=== PATIENT | male | born 1970 | race Caucasian/White ===

== ENCOUNTER 2020-04-02 11:54 | Outpatient (REF) | payer OTHER, SELFPAY ==
[2020-04-02 12:37] LABS: COVID-19 Test Negative (Negative)
== END 2020-04-02 11:55 | disposition home or self-care (01) ==
LOC: HO.LAB 11:54
PROVIDERS: Visit Provider Internal Medicine
DX: Z20.828 Contact with and (suspected) exposure to other viral communicable diseases (principal)
CPT/HCPCS: 87635; C9803

== ENCOUNTER 2020-04-10 12:01 | Outpatient (REF) | payer OTHER, SELFPAY ==
[2020-04-10 12:55] LABS: COVID-19 Test Negative (Negative)
== END 2020-04-10 12:02 | disposition home or self-care (01) ==
LOC: HO.EMPCOV 12:01
PROVIDERS: Visit Provider Internal Medicine
DX: Z20.828 Contact with and (suspected) exposure to other viral communicable diseases (principal)
CPT/HCPCS: 87635; C9803

== ENCOUNTER 2020-04-22 11:52 | Outpatient (REF) | payer OTHER, SELFPAY ==
[2020-04-22 12:41] LABS: COVID-19 Test Negative (Negative)
== END 2020-04-22 11:53 | disposition home or self-care (01) ==
LOC: HO.EMPCOV 11:52
PROVIDERS: Visit Provider Internal Medicine
DX: Z20.828 Contact with and (suspected) exposure to other viral communicable diseases (principal)
CPT/HCPCS: 87635; C9803

== ENCOUNTER 2020-04-29 11:42 | Outpatient (REF) | payer OTHER, SELFPAY ==
[2020-04-29 12:35] LABS: IDNOW Serial# 55D5AD1C
[2020-04-29 12:36] LABS: COVID-19 Test Negative (Negative)
== END 2020-04-29 11:43 | disposition home or self-care (01) ==
LOC: HO.EMPCOV 11:42
PROVIDERS: Visit Provider Internal Medicine
DX: Z20.828 Contact with and (suspected) exposure to other viral communicable diseases (principal)
CPT/HCPCS: 87635; C9803

== ENCOUNTER 2020-05-11 11:53 | Outpatient (REF) | payer OTHER, SELFPAY ==
[2020-05-11 12:19] LABS: COVID-19 Test Negative (Negative)
== END 2020-05-11 11:54 | disposition home or self-care (01) ==
LOC: HO.EMPCOV 11:53
PROVIDERS: Visit Provider Internal Medicine
DX: Z20.828 Contact with and (suspected) exposure to other viral communicable diseases (principal)
CPT/HCPCS: 87635; C9803

== ENCOUNTER 2020-05-19 11:27 | Outpatient (REF) | payer OTHER, SELFPAY ==
[2020-05-19 13:07] LABS: COVID-19 Test Negative (Negative)
== END 2020-05-19 11:28 | disposition home or self-care (01) ==
LOC: HO.EMPCOV 11:27
PROVIDERS: Visit Provider Internal Medicine
DX: Z20.828 Contact with and (suspected) exposure to other viral communicable diseases (principal)
CPT/HCPCS: 87635; C9803

== ENCOUNTER 2020-07-03 12:14 | Outpatient (REF) | payer OTHER, SELFPAY ==
[2020-07-05 10:13] LABS: SARS-COV-2 PCR UMBRL NEGATIVE
== END 2020-07-03 12:15 | disposition home or self-care (01) ==
LOC: HO.EMPCOV 12:14
PROVIDERS: Visit Provider Internal Medicine
DX: Z20.822 Contact with and (suspected) exposure to COVID-19 (principal)
CPT/HCPCS: 36415; C9803; U0003

== ENCOUNTER 2020-07-13 10:11 | Outpatient (REF) | payer OTHER, SELFPAY ==
[2020-07-13 10:28] LABS: MANUAL DIFF FLAG NO
[2020-07-13 10:36] LABS: Basophils Percent Auto 0.5 % (0-2); Eosinophils Absolute Auto 0.1 X10*3/uL (0.0-0.4); Eosinophils Percent Auto 2.3 % (0-4); Hematocrit 27.1 % (42-52); Hemoglobin 8.5 g/dl (14.0-18.0); Imm Gran Abs Auto 0.01 X10*3/uL (0.00-0.03); Imm Gran Pct Auto 0.2 % (0.0-0.4); Lymphocytes Absolute Auto 1.2 X10*3/uL (1.2-4.9); Lymphocytes Percent Auto 20.4 % (20-40); Mean Corpuscular HGB Conc 31.4 g/dl (31.0-36.0); Mean Corpuscular Hemoglobin 24.4 pg (27.0-33.0); Mean Corpuscular Volume 77.9 fL (80-98); Monocytes Absolute Auto 0.7 X10*3/uL (0.1-1.2); Monocytes Percent Auto 11.3 % (2-11); Neutrophils Absolute Auto 3.9 X10*3/uL (2.0-8.3); Neutrophils Percent Auto 65.3 % (45-73); Platelet Count 211 X10*3/uL (160-400); Red Blood Count 3.48 X10*6/uL (4.60-5.80)
[2020-07-13 11:12] LABS: Alanine Aminotransferase 20 U/L (0-40); Alkaline Phosphatase 102 U/L (39-117); Anion Gap 11 (12-20); Aspartate Amino Transferase 82 U/L (5-37); Bilirubin Direct 0.5 mg/dL (0.0-0.5); Bilirubin Total 0.9 mg/dL (0.0-1.0); Blood Urea Nitrogen 4 mg/dL (9-16); Carbon Dioxide 25 mmol/L (22-29); Chloride 101 mmol/L (96-108); Cholesterol 112 mg/dL; Estimated Glomerular Filt Rate > 60; Glucose Random 121 mg/dL (60-115); HDL Cholesterol 32 mg/dL; LDL Cholesterol Calculated 63 mg/dl; Magnesium 1.8 mg/dL (1.6-2.6); Potassium 4.1 mmol/L (3.3-5.1); Sodium 133 mmol/L (135-145); Total Protein 6.1 g/dL (6.5-8.0); Triglycerides 85 mg/dL
[2020-07-13 11:25] LABS: Thyroid Stimulating Hormone 1.47 uIU/mL (0.32-4.0)
[2020-07-17 05:42] LABS: Vitamin B12 > 2000 pg/mL (200-900)
== END 2020-07-13 10:12 | disposition home or self-care (01) ==
LOC: HO.LDS 10:11
PROVIDERS: Visit Provider Internal Medicine
DX: E53.8 Deficiency of other specified B group vitamins (principal); L73.2 Hidradenitis suppurativa
CPT/HCPCS: 36415; 80053; 80061; 80076; 82248; 82607; 82746; 83735; 84443; 85025

== ENCOUNTER 2020-07-18 15:26 | Emergency (ER) | payer OTHER, SELFPAY ==
--- NOTE | ~2020-07-18 | CT_ITS ---
EXAMINATION: CT ABDOMEN AND PELVIS WITH CONTRAST CLINICAL INFORMATION: 50-year-old male with diffuse abdominal pain, worse in the epigastric region. COMPARISON: Abdominal ultrasound 07/23/[address] a lower extremity runoff 02/05/2019 TECHNIQUE: Multidetector volumetric images were obtained from the superior aspect of the liver through the pubic symphysis following administration 85 mL of Omnipaque 350 intravenous contrast. Sagittal and coronal reformatted images were obtained on the technologist's workstation. This CT examination was performed using dose optimization techniques as appropriate, variously including the following: *Automated exposure control *Adjustment of mA and/or kV according to patient size (this includes techniques or standardized protocols for targeted exams where dose is matched to indication/reason for exam; i.e. extremities or head) *Use of iterative reconstruction technique DLP: 850 mGy-cm FINDINGS: Visualized lung bases are well aerated. There is mild suspected dependent atelectasis of the posterior left lung base. The liver is normal in size but demonstrates mildly decreased attenuation and a mildly nodular contour. The gallbladder is physiologically distended without definitive gallstones. The pancreas, spleen and adrenal glands are unremarkable. Symmetrically enhancing kidneys without hydronephrosis. Surgical changes of the GE junction and stomach consistent with gastric bypass. Normal caliber loops of small and large bowel. There is mucosal fatty infiltration involving the ascending colon and rectum, nonspecific. Small to moderate amount of abdominal and pelvic ascites. Nonaneurysmal abdominal aorta. Recannulized umbilical vein. The bladder is normal in appearance. The prostate gland is not enlarged. No gross inguinal lymphadenopathy. Mild degenerative changes of the spine. CT/CT abdomen pelvis w con IMPRESSION: Cirrhotic appearance of the liver with mild to moderate ascites and a recanalized umbilical vein.
[2020-07-18 15:37] VITALS: BP 110/71; PULSE 96; RESP 18; TEMP 36.9; O2SAT 100; BMI 29.9
--- NOTE | 2020-07-18 16:57 | ECG_ITS ---
Test Reason : WEAKNESS Blood Pressure : / mmHG Vent. Rate : 079 BPM Atrial Rate : 079 BPM P-R Int : 126 ms QRS Dur : 090 ms QT Int : 416 ms P-R-T Axes : 054 069 083 degrees QTc Int : 477 ms Normal sinus rhythm Nonspecific T wave abnormality Prolonged QT Abnormal ECG When compared with ECG of 21-SEP-2018 00:20, No significant change was found Referred By: Nuha Munoz Electronically Signed By:SANDY FARIA
--- NOTE | 2020-07-18 17:05 | ED.GENADULT ---
HPI - General Adult General Chief complaint: General Medical Stated complaint: dizziness Time Seen by Provider: 07/18/20 16:27 Source: patient Mode of arrival: ambulatory Limitations: no limitations History of Present Illness HPI narrative: Patient comes to the emergency room complaining of weakness, feeling lethargic, intermittent rectal bleeding with wiping, diffuse abdominal pain, feeling lightheaded, complaining of epigastric pain and bloating. Most of patient's symptoms started approximately 1 week ago. The patient is on Xarelto for a DVT that he had in his right leg. Patient states that he also has history of internal and external hemorrhoids. Related Data Allergies Allergy/AdvReac Type Severity Reaction Status Date / Time niacin Allergy Unknown FLUSH Verified 07/18/20 17:35 FEELING No Known Allergies Allergy Verified 07/18/20 17:35 [No Known Allergies*] Review of Systems Review of Systems: Constitutional : No Weight loss, No Fever, No Chills, No Night Sweats, complaining of worsening fatigue and generalized malaise ENT/Mouth : No Hearing loss, No Ear Pain, No Nasal Congestion, No Sinus Pain, No Hoarseness, No sore throat, No Rhinorrhea, No Swallowing Difficulty Eyes: No Eye Pain, No Swelling, No Redness, No Foreign Body, No Discharge, No Vision Changes Cardiovascular : No Chest Pain, No SOB, No Dyspnea on Exertion, no orthopnea, no lower extremity edema Respiratory : No Cough, No Sputum, No Wheezing, No Smoke Exposure, No Dyspnea Gastrointestinal : No Nausea, No Vomiting, No Diarrhea, complaining of epigastric pain, abdominal bloating, diffuse abdominal discomfort, complaining of external and internal hemorrhoids Genitourinary : no irregular bleeding, No Dysuria, No Urinary Frequency, No Hematuria, No Urinary Incontinence, No Urgency, No Flank Pain, No Urinary Flow Changes, No Hesitancy Musculoskeletal : No joint pain, complaining of bilateral his bilateral lower extremities aching, No Joint Swelling Skin : No Skin Lesions, No rash Neuro : No Weakness, No Numbness, No Paresthesias, No Loss of Consciousness, complaining of dizziness when standing Psych : No Anxiety/Panic, No Depression, No SI/HI/AH/VH, No Social Issues, Heme/Lymph: Complaining of Easy Bruising, No Bleeding,No Lymphadenopathy Endocrine : No Polyuria, No Polydipsia, No Temperature Intolerance [facility] Past Medical History Medical History (Updated 07/18/20 @ 19:58 by Nuha Munoz MD) DVT (deep venous thrombosis) Surgical History (Updated 07/18/20 @ 17:34 by Nuha Munoz MD) Hx of laparoscopic adjustable gastric banding Social History Social History Alcohol intake: current Alcohol intake frequency: 3 or more drinks per day Alcohol type: beer Smoking Status: Current every day smoker Smoked in Last 30 Days: Yes Use of substances other than those prescribed or required for medical reasons: No Advance Directives: No Advance Directives Information Provided: Yes Physical Exam Vital Signs: Vital Signs: Last Vital Signs Temp 98.4 F 07/18/20 15:37 Pulse 104 H 07/18/20 19:34 Resp 16 07/18/20 19:34 BP 116/77 07/18/20 19:34 Pulse Ox 97 07/18/20 19:34 Body Mass Index 29.9 Appearance: Alert. Oriented X3. No acute distress. Eyes: Pupils equal, round and reactive to light. ENT: Pharynx normal. Neck: Normal inspection. Neck supple. No lymph nodes noted. No crepitus CVS: Normal heart rate and rhythm. Pulses normal. Normal S1 and S2 Respiratory: No respiratory distress. Breath sounds normal. No Wheezing. No rales Abdomen: Soft , tenderness to palpation diffusely, worse over the epigastric area No rigidity. No distention. Three small external hemorrhoids, questionable internal hemorrhoids, no bleeding on YOGESH. Bedside ultrasound shows [id number] ascites, fluid around the liver, minimal in the left and right lower quadrants, no significant fluid pockets Skin: Skin warm and dry. Normal skin color. Normal skin turgor. Extremities: No lower extremity edema. No lower extremity edema. No Lacerations. No Rash Neuro: Oriented X 3. No motor deficit. No sensory deficit. Moving all extermities. No slurred speech. Course Course Course Narrative: I discussed the labs and imaging with the patient, patient is developing cirrhosis. Patient states that since he was for load, he started drinking a lot of alcohol. I discussed with the patient if he wants to talk to the financial wellness coach, states that he has gone through AA before, does not want to talk to the financial wellness coach. Patient states he still feels very weak, requesting couple of days off from work I discussed with the patient that the rest of the symptoms may be attributed to a viral syndrome. Patient states that he has been tested multiple times for COVID-19, declined the test today Bedside ultrasound did not show enough fluid to obtain fluid sample, spontaneous bacterial peritonitis is not suspected at this time Medical Decision Making Lab Data Result diagrams: 07/18/20 17:19 07/18/20 17:18 Labs: Lab Results 07/18/20 07/18/20 07/18/20 Range/Units 17:18 17:18 17:18 WBC (4.8-10.8) X10*3/uL RBC (4.60-5.80) X10*6/uL Hgb (14.0-18.0) g/dl Hct (42-52) % MCV (80-98) fL MCH (27.0-33.0) pg MCHC (31.0-36.0) g/dl RDW (11.0-16.0) % Plt Count (160-400) X10*3/uL MPV (9.4-12.4) fL Immature Gran % (Auto) (0.0-0.4) % Neut % (Auto) (45-73) % Lymph % (Auto) (20-40) % [place] % (Auto) (2-11) % Eos % (Auto) (0-4) % Baso % (Auto) (0-2) % Lymph # (Auto) (1.2-4.9) X10*3/uL [place] # (Auto) (0.1-1.2) X10*3/uL Eos # (Auto) (0.0-0.4) X10*3/uL Baso # (Auto) (0.0-0.2) X10*3/uL Abs Immat Gran (auto) (0.00-0.03) X10*3/uL Absolute Neuts (auto) (2.0-8.3) X10*3/uL Absolute Nucleated RBC (0.0-0.012) X10*3/uL Nucleated RBC % (auto) (0.0-0.2) /100WBC PT 22.5 H (10.8-13.0) SEC INR 1.9 H (0.9-1.1) Sodium 137 (135-145) mmol/L Potassium 4.2 (3.3-5.1) mmol/L Chloride 106 (96-108) mmol/L Carbon Dioxide 18 L (22-29) mmol/L Anion Gap 17 (12-20) BUN 3 L (9-16) mg/dL Creatinine 0.62 (0.5-1.4) mg/dL Estim Creat Clear Calc 173.5 Estimated GFR > 60 Random Glucose 80 (60-115) mg/dL Calcium 7.5 L D (8.4-10.2) mg/dL Total Bilirubin 0.8 (0.0-1.0) mg/dL Direct Bilirubin 0.3 (0.0-0.5) mg/dL AST 70 H (5-37) U/L ALT 16 (0-40) U/L Alkaline Phosphatase 101 (39-117) U/L Total Protein 6.0 L (6.5-8.0) g/dL Albumin 2.8 L (3.5-5.0) g/dL Lipase 151 H (8-78) U/L Stool Occult Blood (NEG) 07/18/20 07/18/20 Range/Units 17:18 17:19 WBC 5.7 (4.8-10.8) X10*3/uL RBC 3.82 L (4.60-5.80) X10*6/uL Hgb 9.4 L (14.0-18.0) g/dl Hct 29.8 L (42-52) % MCV 78.0 L (80-98) fL MCH 24.6 L (27.0-33.0) pg MCHC 31.5 (31.0-36.0) g/dl RDW 18.9 H (11.0-16.0) % Plt Count 240 (160-400) X10*3/uL MPV 9.1 L (9.4-12.4) fL Immature Gran % (Auto) 0.2 (0.0-0.4) % Neut % (Auto) 57.6 (45-73) % Lymph % (Auto) 29.2 (20-40) % [place] % (Auto) 8.8 (2-11) % Eos % (Auto) 3.7 (0-4) % Baso % (Auto) 0.5 (0-2) % Lymph # (Auto) 1.7 (1.2-4.9) X10*3/uL [place] # (Auto) 0.5 (0.1-1.2) X10*3/uL Eos # (Auto) 0.2 (0.0-0.4) X10*3/uL Baso # (Auto) 0.0 (0.0-0.2) X10*3/uL Abs Immat Gran (auto) 0.01 (0.00-0.03) X10*3/uL Absolute Neuts (auto) 3.3 (2.0-8.3) X10*3/uL Absolute Nucleated RBC 0.000 (0.0-0.012) X10*3/uL Nucleated RBC % (auto) 0.0 (0.0-0.2) /100WBC PT (10.8-13.0) SEC INR (0.9-1.1) Sodium (135-145) mmol/L Potassium (3.3-5.1) mmol/L Chloride (96-108) mmol/L Carbon Dioxide (22-29) mmol/L Anion Gap (12-20) BUN (9-16) mg/dL Creatinine (0.5-1.4) mg/dL Estim Creat Clear Calc Estimated GFR Random Glucose (60-115) mg/dL Calcium (8.4-10.2) mg/dL Total Bilirubin (0.0-1.0) mg/dL Direct Bilirubin (0.0-0.5) mg/dL AST (5-37) U/L ALT (0-40) U/L Alkaline Phosphatase (39-117) U/L Total Protein (6.5-8.0) g/dL Albumin (3.5-5.0) g/dL Lipase (8-78) U/L Stool Occult Blood NEG (NEG) ECG Data Attestation: I personally reviewed and interpreted this ECG as follows: (Sinus rhythm, heart rate 79, slightly prolonged QTC 477, no specific T-wave abnormalities in V3 through V6) Discharge Plan Discharge Clinical Impression: Acute viral syndrome Cirrhosis Qualifiers: Hepatic cirrhosis type: alcoholic cirrhosis Ascites presence: with ascites Qualified Code(s): K70.31 - Alcoholic cirrhosis of liver with ascites Patient Disposition: Home, Self-Care Instructions: Cirrhosis (ED), Viral Syndrome (ED), Ascites (ED) Stand Alone Forms: Work/School Release
[2020-07-18 17:23] VITALS: BP 109/73; PULSE 80; RESP 18; O2SAT 98
[2020-07-18 17:30] VITALS: BP 121/70; PULSE 75
[2020-07-18 17:31] VITALS: BP 125/64; PULSE 97
[2020-07-18 17:33] VITALS: BP 108/62; PULSE 96
[2020-07-18] MEDS: 0.9 % Sodium Chloride 1,000 ML 999 ML IVCONT (17:35)
[2020-07-18 17:52] LABS: MANUAL DIFF FLAG NO
[2020-07-18 17:57] LABS: Basophils Percent Auto 0.5 % (0-2); Eosinophils Absolute Auto 0.2 X10*3/uL (0.0-0.4); Eosinophils Percent Auto 3.7 % (0-4); Hematocrit 29.8 % (42-52); Hemoglobin 9.4 g/dl (14.0-18.0); Imm Gran Abs Auto 0.01 X10*3/uL (0.00-0.03); Imm Gran Pct Auto 0.2 % (0.0-0.4); Lymphocytes Absolute Auto 1.7 X10*3/uL (1.2-4.9); Lymphocytes Percent Auto 29.2 % (20-40); Mean Corpuscular HGB Conc 31.5 g/dl (31.0-36.0); Mean Corpuscular Hemoglobin 24.6 pg (27.0-33.0); Mean Platelet Volume 9.1 fL (9.4-12.4); Monocytes Absolute Auto 0.5 X10*3/uL (0.1-1.2); Monocytes Percent Auto 8.8 % (2-11); Neutrophils Absolute Auto 3.3 X10*3/uL (2.0-8.3); Neutrophils Percent Auto 57.6 % (45-73); Platelet Count 240 X10*3/uL (160-400); Red Blood Count 3.82 X10*6/uL (4.60-5.80); Red Cell Distribution Width 18.9 % (11.0-16.0); White Blood Count 5.7 X10*3/uL (4.8-10.8)
[2020-07-18 17:58] LABS: OBS Int Ctl Valid YES; OBS1 NEG (NEG)
[2020-07-18 18:06] LABS: INTERNATIONAL NORM RATIO 1.9 (0.9-1.1); Prothrombin Time 22.5 SEC (10.8-13.0)
[2020-07-18 18:26] LABS: Alanine Aminotransferase 16 U/L (0-40); Albumin Level 2.8 g/dL (3.5-5.0); Alkaline Phosphatase 101 U/L (39-117); Anion Gap 17 (12-20); Aspartate Amino Transferase 70 U/L (5-37); Bilirubin Direct 0.3 mg/dL (0.0-0.5); Bilirubin Total 0.8 mg/dL (0.0-1.0); Blood Urea Nitrogen 3 mg/dL (9-16); Calcium 7.5 mg/dL (8.4-10.2); Carbon Dioxide 18 mmol/L (22-29); Chloride 106 mmol/L (96-108); Creatinine Clr Calc Pharmacy 173.5; Estimated Glomerular Filt Rate > 60; Glucose Random 80 mg/dL (60-115); Potassium 4.2 mmol/L (3.3-5.1); Sodium 137 mmol/L (135-145)
[2020-07-18 18:37] LABS: Lipase 151 U/L (8-78)
[2020-07-18] MEDS: iohexoL 350 MG/ML 100 ML INFUS..BTL IV (18:54)
[2020-07-18 19:34] VITALS: BP 116/77; PULSE 104; RESP 16; O2SAT 97
== END 2020-07-18 20:38 | disposition home or self-care (01) ==
PROVIDERS: Emergency Provider Emergency Medicine; PCP Internal Medicine
DX: B34.9 Viral infection, unspecified (principal); K70.31 Alcoholic cirrhosis of liver with ascites; F17.200 Nicotine dependence, unspecified, uncomplicated; Z86.718 Personal history of other venous thrombosis and embolism; Z79.01 Long term (current) use of anticoagulants
CPT/HCPCS: 36415; 74177; 80048; 80076; 82272; 83690; 85025; 85610; 93005; 96360; 99284; Q9967

== ENCOUNTER 2020-07-22 10:00 | Outpatient (REF) | payer OTHER, SELFPAY ==
[2020-07-22 11:04] LABS: MANUAL DIFF FLAG NO
[2020-07-22 11:25] LABS: Basophils Percent Auto 0.4 % (0-2); Eosinophils Absolute Auto 0.1 X10*3/uL (0.0-0.4); Eosinophils Percent Auto 1.4 % (0-4); Hemoglobin 8.8 g/dl (14.0-18.0); Imm Gran Abs Auto 0.01 X10*3/uL (0.00-0.03); Imm Gran Pct Auto 0.2 % (0.0-0.4); Lymphocytes Absolute Auto 0.9 X10*3/uL (1.2-4.9); Mean Corpuscular HGB Conc 30.3 g/dl (31.0-36.0); Mean Corpuscular Hemoglobin 23.9 pg (27.0-33.0); Mean Corpuscular Volume 78.8 fL (80-98); Mean Platelet Volume 9.2 fL (9.4-12.4); Monocytes Absolute Auto 0.6 X10*3/uL (0.1-1.2); Neutrophils Absolute Auto 3.4 X10*3/uL (2.0-8.3); Platelet Count 207 X10*3/uL (160-400); Red Blood Count 3.68 X10*6/uL (4.60-5.80); Red Cell Distribution Width 19.1 % (11.0-16.0)
[2020-07-22 12:03] LABS: Iron 17 mcg/dL (45-160); Percent Iron Saturation 6 % (15-50); Total Iron Binding Capacity 289 mcg/dL (228-428); Unsaturated Iron Binding 272 ug/dL
[2020-07-22 12:26] LABS: Ferritin 14 ng/mL (20-250)
== END 2020-07-22 10:01 | disposition home or self-care (01) ==
LOC: HO.HMGCLDS 10:00
PROVIDERS: PCP Internal Medicine; Visit Provider Internal Medicine
DX: K74.60 Unspecified cirrhosis of liver (principal); R18.8 Other ascites; D64.9 Anemia, unspecified
CPT/HCPCS: 36415; 82728; 83540; 85025

== ENCOUNTER 2020-07-30 14:24 | Outpatient (REF) | payer OTHER, SELFPAY ==
--- NOTE | ~2020-07-30 | US_ITS ---
EXAMINATION: US VENOUS ULTRASOUND WITH DOPPLER LOWER EXTREMITY, BILATERAL CLINICAL INFORMATION: History of thrombolysis of aortoiliac arterial thrombus. COMPARISON: None TECHNIQUE: Ultrasound of the deep veins is performed from the hip to the calf with compression sonography and color and pulse Doppler assessment. Spectral analysis with color-flow imaging is performed. FINDINGS: RIGHT: There is normal venous compression and respiratory variation and augmented flow. The visualized common femoral vein, superficial femoral vein, profunda femoral vein, popliteal vein, and the trifurcation region shows no evidence of deep venous thrombosis. There is no significant popliteal fossa cyst. LEFT: There is normal venous compression and respiratory variation and augmented flow. The visualized common femoral vein, superficial femoral vein, profunda femoral vein, popliteal vein, and the trifurcation region shows no evidence of deep venous thrombosis. There is no significant popliteal fossa cyst. No fluid collections or masses are seen in the area of numbness/pain or tingling If the patient's symptoms persist, followup ultrasound in 5 days 7 days might be of value to exclude proximal propagation from a non-visualized calf vein. US/US venous duplex LE IMPRESSION: No DVT demonstrated either lower extremity.
== END 2020-07-30 14:25 | disposition home or self-care (01) ==
LOC: HO.US 14:24
PROVIDERS: PCP Internal Medicine; Visit Provider Surgery Vascular Surgery
DX: I74.01 Saddle embolus of abdominal aorta (principal)
CPT/HCPCS: 93970

== ENCOUNTER 2020-08-06 10:01 | Outpatient (REF) | payer OTHER, SELFPAY | END 2020-08-06 10:02 | disposition home or self-care (01) | LOC: HO.LAB 10:01 | PROVIDERS: PCP Internal Medicine; Visit Provider Internal Medicine Gastroenterology | DX: Z13.89 Encounter for screening for other disorder (principal) ==

== ENCOUNTER 2020-08-06 11:14 | Emergency (ER) | payer OTHER, SELFPAY ==
--- NOTE | ~2020-08-06 | XR_ITS ---
EXAMINATION: XR CHEST CLINICAL INFORMATION: SOB. COMPARISON: There is 09/14/2019 TECHNIQUE: Frontal view of the chest was obtained. FINDINGS: The lungs as somewhat expanded without acute pneumonic consolidation. Minimal prominent interstitial markings seen but no edema or pneumonitis suspected. There is no pleural effusion. The heart size and pulmonary vascularity is normal. No gross bony abnormality. XR/XR chest 1V IMPRESSION: Unremarkable chest exam.
--- NOTE | ~2020-08-06 | CT_ITS ---
EXAMINATION: CT ABDOMEN AND PELVIS WITH CONTRAST CLINICAL INFORMATION: Upper abdominal pain COMPARISON: 07/18/2020 TECHNIQUE: Multidetector volumetric images were obtained from the superior aspect of the liver through the pubic symphysis following administration 100 mL of Omnipaque 350 intravenous contrast. Sagittal and coronal reformatted images were obtained on the technologist's workstation. Oral contrast: No This CT examination was performed using dose optimization techniques as appropriate, variously including the following: *Automated exposure control *Adjustment of mA and/or kV according to patient size (this includes techniques or standardized protocols for targeted exams where dose is matched to indication/reason for exam; i.e. extremities or head) *Use of iterative reconstruction technique DLP: 886 mGy-cm FINDINGS: LUNG BASES: The visualized lung bases are unremarkable. LIVER, GALLBLADDER, AND BILIARY TREE: Morphologically cirrhotic liver. No focal liver lesions. No intra or extrahepatic biliary dilatation. Gallbladder physiologically distended but otherwise unremarkable.. PANCREAS: Unremarkable. SPLEEN: Unremarkable. ADRENAL GLANDS: Unremarkable. KIDNEYS AND URETERS: The kidneys are normal in size, shape, and attenuation. No hydronephrosis, hydroureter, or calculi seen. No perinephric stranding. BLADDER: Unremarkable. GASTROINTESTINAL TRACT: There is mild edematous wall thickening of the ascending colon, similar to prior likely related to portal colopathy. Unremarkable appearance of the Norma-en-Y gastrojejunostomy. Scattered sigmoid colonic diverticula without evidence of diverticulitis. Normal appendix. ABDOMINAL WALL: No significant hernia is appreciated. LYMPH NODES: Normal. VASCULAR: Aorta mildly atherosclerotic. Recanalized periumbilical vein. PELVIC VISCERA: Unremarkable. OSSEOUS STRUCTURES: No acute or suspicious osseous abnormalities. Degenerative changes present throughout the spine. CT/CT abdomen pelvis w con IMPRESSION: No acute findings within the abdomen or pelvis to explain the patient's symptomatology. Morphologically cirrhotic liver with small moderate ascites and recanalized paraumbilical vein.
[2020-08-06 11:32] VITALS: BP 120/64; PULSE 89; RESP 18; TEMP 37; O2SAT 100; BMI 1347.9
--- NOTE | 2020-08-06 14:41 | ECG_ITS ---
Test Reason : ABD PAIN Blood Pressure : / mmHG Vent. Rate : 094 BPM Atrial Rate : 094 BPM P-R Int : 124 ms QRS Dur : 090 ms QT Int : 364 ms P-R-T Axes : 073 074 245 degrees QTc Int : 455 ms Normal sinus rhythm ST & T wave abnormality, consider inferolateral ischemia Abnormal ECG When compared with ECG of 18-JUL-2020 17:25, T wave inversion now evident in Inferior leads T wave inversion now evident in Lateral leads Referred By: Kamryn Boyer Electronically Signed By:OWEN BLACKWELL MD
--- NOTE | 2020-08-06 15:14 | PC.NURSE ---
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
[2020-08-06 15:23] LABS: MANUAL DIFF FLAG NO
[2020-08-06 15:25] LABS: Basophils Percent Auto 0.6 % (0-2); Eosinophils Percent Auto 0.7 % (0-4); Hematocrit 24.6 % (42-52); Hemoglobin 7.7 g/dl (14.0-18.0); Imm Gran Abs Auto 0.01 X10*3/uL (0.00-0.03); Imm Gran Pct Auto 0.2 % (0.0-0.4); Lymphocytes Absolute Auto 1.2 X10*3/uL (1.2-4.9); Lymphocytes Percent Auto 22.3 % (20-40); Mean Corpuscular HGB Conc 31.3 g/dl (31.0-36.0); Mean Corpuscular Hemoglobin 24.4 pg (27.0-33.0); Mean Corpuscular Volume 77.8 fL (80-98); Mean Platelet Volume 8.7 fL (9.4-12.4); Monocytes Absolute Auto 0.7 X10*3/uL (0.1-1.2); Monocytes Percent Auto 12.2 % (2-11); Neutrophils Absolute Auto 3.5 X10*3/uL (2.0-8.3); Platelet Count 245 X10*3/uL (160-400); Red Blood Count 3.16 X10*6/uL (4.60-5.80); Red Cell Distribution Width 18.7 % (11.0-16.0); White Blood Count 5.4 X10*3/uL (4.8-10.8)
[2020-08-06 15:28] VITALS: BP 109/63; PULSE 97; RESP 20; TEMP 36.9; O2SAT 100
--- NOTE | 2020-08-06 15:29 | PC.NURSE ---
patient a&ox3, vss, pt c/o 02/28 abd pain, will notify provider as patient is requsting pain medication, will continue to monitor.
[2020-08-06 15:35] LABS: INTERNATIONAL NORM RATIO 1.6 (0.9-1.1); Prothrombin Time 18.6 SEC (10.8-13.0)
[2020-08-06 15:37] LABS: Partial Thromboplastin Time 39.8 SEC (24.1-38.0)
[2020-08-06 15:51] LABS: Ammonia 35 umol/L (13-55); Ethanol < 10 mg/dL
--- NOTE | 2020-08-06 15:51 | ED.ABDPAIN ---
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 Miller for continued abdominal pain/distension, bleeding from belly button, SOB from abdominal distention, & decreased p.o. intake. Denies chest pain, fever, chills, dysuria/hematuria, rectal bleeding, melena, hematuria, lightheadedness/dizziness, headache Obtained [place] [facility] [place] was discharged on 08/04 s/p initial presentation of worsening abdominal distension/pain, CT showing liver cirrhosis with moderate ascites, and patient was admitted to floor for concern for SBP/paracentesis during admission patient had episode of rectal bleeding which was from external hemorrhoids.. Patient also had U.S. guided paracentesis with evacuation of 3300 mL and was initiated on Spironolactone and Lasix upon discharge. Patient's discharge hemoglobin was in was 7.1 MD elicited complaint: abdominal pain Related Data Home Medications Medication Instructions Recorded Confirmed albuterol sulfate 2 puff INHALATION Q6H PRN 08/06/20 08/06/20 aspirin 81 mg tablet,delayed 81 mg PO DAILY 08/06/20 08/06/20 release cyanocobalamin (vitamin B-12) 1,000 mcg PO DAILY 08/06/20 08/06/20 ergocalciferol (vitamin D2) 1,250 1,250 mcg PO FR@1000 08/06/20 08/06/20 mcg (50,000 unit) capsule escitalopram oxalate 20 mg tablet 20 mg PO DAILY 08/06/20 08/06/20 ferrous sulfate 325 mg (65 mg 325 mg PO DAILY tab 08/06/20 08/06/20 iron) tablet folic acid 1 mg tablet 1 mg PO DAILY 08/06/20 08/06/20 furosemide 40 mg tablet 40 mg PO DAILY 08/06/20 08/06/20 loratadine 10 mg PO DAILY 08/06/20 08/06/20 minocycline 100 mg PO BID 08/06/20 08/06/20 multivitamin [Daily-Tomas] 1 tab PO DAILY 08/06/20 08/06/20 oxycodone 5 mg tablet 10 mg PO Q6H PRN tab 08/06/20 08/06/20 rivaroxaban 20 mg tablet 20 mg PO QPM 08/06/20 08/06/20 spironolactone 100 mg tablet 100 mg PO DAILY 08/06/20 08/06/20 Allergies Allergy/AdvReac Type Severity Reaction Status Date / Time No Known Allergies Allergy Verified 08/06/20 10:16 [No Known Allergies*] Review of Systems Review of Systems Constitutional: No Fever, + Chills Eyes: No Vision Changes Cardiovascular: No Chest Pain, + SOB, No Edema, No Palpitations Respiratory: No Cough Gastrointestinal: + Nausea, No Vomiting, No Diarrhea, No Constipation, + Abdominal pain, No Hematochezia, No Melena Genitourinary: No Dysuria, No Urinary Frequency, No Hematuria Musculoskeletal: No joint pain, No Myalgias, No Joint Swelling Skin: No Skin Lesions, No rash Neuro: No Weakness, No Loss of Consciousness, No Dizziness, No Headache Yes all other systems are reviewed and are negative Physical Exam Vital Signs: Vital Signs: Last Vital Signs Temp 98.4 F 08/06/20 15:28 Pulse 97 08/06/20 15:28 Resp 20 08/06/20 15:28 BP 109/63 08/06/20 15:28 Pulse Ox 100 08/06/20 15:28 Body Mass Index 1347.9 Const: General: cooperative, healthy appearing and comfortable Orientation/consciousness: patient oriented x3 Limitations: no limitations HENMT: Head: Yes normal to inspection Ears: hearing grossly normal bilaterally General nose exam: Normal external nose present Face and sinus: Yes normal facial exam Eyes: General: appearance normal, both eyes and all related structures EOM: EOMs intact bilaterally Neck: Neck: Yes normal visual inspection Resp: Effort & Inspection: normal respiratory effort Auscultation: clear to auscultation bilaterally, no rales, no rhonchi and no wheezes Cardio: Rate: regular rate Heart sounds: S1 normal heart sound present and S2 normal heart sound present GI: Other: Mild ecchymosis noted to RUQ secondary to paracentesis performed at [facility]. No appreciable bleeding from umbilicus Inspection: Yes normal to inspection and No distended Palpation (GI): Soft to palpation, Tenderness to palpation present (GI) in the epigastrum, no guarding and not rigid Skin: Rashes: no rashes Wounds: no wounds Neuro: General: patient oriented x3 Gait exam (Neuro): Normal gait present Extrem: General: Yes normal to inspection, Yes no pedal edema and Yes no calf tenderness Course Course Course Narrative: -no leukocytosis. H&H 7.1/24.6 > which is improved from discharge from [facility] on 08/04 -AST at patient's baseline, lipase is mildly elevated at 103 XR chest 1V IMPRESSION: Unremarkable chest exam --Case discussed with GI Dr. Miller, recommended CT to rule out complication of recent paracentesis. Also recommended increase in patient's diuretics, spironolactone to 150 mg and Lasix to 60 mg daily. If large volume fluid on CT will need paracentesis -1700--ED care transferred to 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 Miller for continued abdominal pain/distension, bleeding from belly button, SOB from abdominal distention, & decreased p.o. intake. On exam VSS, NAD, lungs CTA, abdomen soft with epigastric TTP, no overt appreciable distension. Low concern for SBP at this time. Concern for pancreatitis vs complication of recent paracentesis vs ?Cholecystitis. Rule out dehydration/anemia. Low concern for appendicitis/diverticulitis Plan: EKG, labs, UA, IVF, consult GI, +/- CTAP Lab Data Result diagrams: 08/06/20 15:11 08/06/20 15:11 Labs: Lab Results 08/06/20 08/06/20 08/06/20 Range/Units 15:11 15:11 15:11 WBC 5.4 (4.8-10.8) X10*3/uL RBC 3.16 L (4.60-5.80) X10*6/uL Hgb 7.7 L (14.0-18.0) g/dl Hct 24.6 L (42-52) % MCV 77.8 L (80-98) fL MCH 24.4 L (27.0-33.0) pg MCHC 31.3 (31.0-36.0) g/dl RDW 18.7 H (11.0-16.0) % Plt Count 245 (160-400) X10*3/uL MPV 8.7 L (9.4-12.4) fL Immature Gran % (Auto) 0.2 (0.0-0.4) % Neut % (Auto) 64.0 (45-73) % Lymph % (Auto) 22.3 (20-40) % [place] % (Auto) 12.2 H (2-11) % Eos % (Auto) 0.7 (0-4) % Baso % (Auto) 0.6 (0-2) % Lymph # (Auto) 1.2 (1.2-4.9) X10*3/uL [place] # (Auto) 0.7 (0.1-1.2) X10*3/uL Eos # (Auto) 0.0 (0.0-0.4) X10*3/uL Baso # (Auto) 0.0 (0.0-0.2) X10*3/uL Abs Immat Gran (auto) 0.01 (0.00-0.03) X10*3/uL Absolute Neuts (auto) 3.5 (2.0-8.3) X10*3/uL Absolute Nucleated RBC 0.000 (0.0-0.012) X10*3/uL Nucleated RBC % (auto) 0.0 (0.0-0.2) /100WBC PT 18.6 H (10.8-13.0) SEC INR 1.6 H (0.9-1.1) APTT 39.8 H (24.1-38.0) SEC Sodium 135 (135-145) mmol/L Potassium 3.8 (3.3-5.1) mmol/L Chloride 102 (96-108) mmol/L Carbon Dioxide 25 (22-29) mmol/L Anion Gap 12 (12-20) BUN 5 L D (9-16) mg/dL Creatinine 0.64 (0.5-1.4) mg/dL Estim Creat Clear Calc 8.9 Estimated GFR > 60 Random Glucose 122 H D (60-115) mg/dL Calcium 7.8 L (8.4-10.2) mg/dL Magnesium 2.0 (1.6-2.6) mg/dL Total Bilirubin 1.0 (0.0-1.0) mg/dL Direct Bilirubin 0.5 (0.0-0.5) mg/dL AST 48 H (5-37) U/L ALT 11 (0-40) U/L Alkaline Phosphatase 92 (39-117) U/L Ammonia (13-55) umol/L Troponin I High Sens (<3.5-35.0) ng/L B-Natriuretic Peptide (<100) pg/mL Total Protein 5.4 L (6.5-8.0) g/dL Albumin 2.6 L (3.5-5.0) g/dL Lipase 103 H (8-78) U/L Ethyl Alcohol mg/dL 08/06/20 08/06/20 08/06/20 Range/Units 15:11 15:11 15:15 WBC (4.8-10.8) X10*3/uL RBC (4.60-5.80) X10*6/uL Hgb (14.0-18.0) g/dl Hct (42-52) % MCV (80-98) fL MCH (27.0-33.0) pg MCHC (31.0-36.0) g/dl RDW (11.0-16.0) % Plt Count (160-400) X10*3/uL MPV (9.4-12.4) fL Immature Gran % (Auto) (0.0-0.4) % Neut % (Auto) (45-73) % Lymph % (Auto) (20-40) % [place] % (Auto) (2-11) % Eos % (Auto) (0-4) % Baso % (Auto) (0-2) % Lymph # (Auto) (1.2-4.9) X10*3/uL [place] # (Auto) (0.1-1.2) X10*3/uL Eos # (Auto) (0.0-0.4) X10*3/uL Baso # (Auto) (0.0-0.2) X10*3/uL Abs Immat Gran (auto) (0.00-0.03) X10*3/uL Absolute Neuts (auto) (2.0-8.3) X10*3/uL Absolute Nucleated RBC (0.0-0.012) X10*3/uL Nucleated RBC % (auto) (0.0-0.2) /100WBC PT (10.8-13.0) SEC INR (0.9-1.1) APTT (24.1-38.0) SEC Sodium (135-145) mmol/L Potassium (3.3-5.1) mmol/L Chloride (96-108) mmol/L Carbon Dioxide (22-29) mmol/L Anion Gap (12-20) BUN (9-16) mg/dL Creatinine (0.5-1.4) mg/dL Estim Creat Clear Calc Estimated GFR Random Glucose (60-115) mg/dL Calcium (8.4-10.2) mg/dL Magnesium (1.6-2.6) mg/dL Total Bilirubin (0.0-1.0) mg/dL Direct Bilirubin (0.0-0.5) mg/dL AST (5-37) U/L ALT (0-40) U/L Alkaline Phosphatase (39-117) U/L Ammonia 35 (13-55) umol/L Troponin I High Sens < 3.5 (<3.5-35.0) ng/L B-Natriuretic Peptide 184 H (<100) pg/mL Total Protein (6.5-8.0) g/dL Albumin (3.5-5.0) g/dL Lipase (8-78) U/L Ethyl Alcohol < 10 mg/dL Discharge Plan Discharge Prescriptions: No Action multivitamin [Daily-Tomas] Tablet 1 tab PO DAILY RF: 0 minocycline 100 mg capsule 100 mg PO BID RF: 0 cyanocobalamin (vitamin B-12) 1,000 mcg tablet 1,000 mcg PO DAILY RF: 0 loratadine 10 mg tablet 10 mg PO DAILY RF: 0 albuterol sulfate 90 mcg/actuation Hfa Aerosol Inhaler 2 puff INHALATION Q6H PRN (Reason: Respiratory Distress) RF: 0 aspirin 81 mg tablet,delayed release (/EC) 81 mg PO DAILY RF: 0 ergocalciferol (vitamin D2) 1,250 mcg (50,000 unit) capsule 1,250 mcg PO FR@1000 RF: 0 escitalopram oxalate 20 mg tablet 20 mg PO DAILY RF: 0 ferrous sulfate 325 mg (65 mg iron) tablet 325 mg PO DAILY RF: 0 folic acid 1 mg tablet 1 mg PO DAILY RF: 0 furosemide 40 mg tablet 40 mg PO DAILY RF: 0 oxycodone 5 mg tablet 10 mg PO Q6H PRN (Reason: Pain (Scale Score 4-6)) RF: 0 Xarelto 20 mg tablet 20 mg PO QPM RF: 0 spironolactone 100 mg tablet 100 mg PO DAILY RF: 0 PMFSH Past Medical History Attestation statement: The following information was validated with the patient. Medical History (Updated 08/06/20 @ 10:28 by Ladonna Miller MD) DVT (deep venous thrombosis) Seizures Surgical History (Updated 08/06/20 @ 10:17 by ISA Obando) H/O colonoscopy H/O gastric bypass H/O hernia repair Family History Family History (Updated 08/06/20 @ 10:18 by ISA Obando) Father Pancreatic cancer Paternal Grandmother Cancer Social History Social History (Updated 08/06/20 @ 10:18 by ISA Obando) Household Members: None Alcohol intake: former Smoking Status: Current every day smoker Tobacco Type: Cigarette Packs Per Day: 1 Use of substances other than those prescribed or required for medical reasons: No Advance Directives: No Advance Directives Information Provided: No
[2020-08-06 15:59] LABS: B Type Natriuretic Peptide 184 pg/mL (<100)
[2020-08-06 16:03] LABS: Alanine Aminotransferase 11 U/L (0-40); Albumin Level 2.6 g/dL (3.5-5.0); Alkaline Phosphatase 92 U/L (39-117); Anion Gap 12 (12-20); Aspartate Amino Transferase 48 U/L (5-37); Bilirubin Direct 0.5 mg/dL (0.0-0.5); Blood Urea Nitrogen 5 mg/dL (9-16); Calcium 7.8 mg/dL (8.4-10.2); Carbon Dioxide 25 mmol/L (22-29); Chloride 102 mmol/L (96-108); Creatinine Clr Calc Pharmacy 8.9; Estimated Glomerular Filt Rate > 60; Glucose Random 122 mg/dL (60-115); Potassium 3.8 mmol/L (3.3-5.1); Sodium 135 mmol/L (135-145); Total Protein 5.4 g/dL (6.5-8.0)
[2020-08-06 16:24] LABS: Lipase 103 U/L (8-78)
[2020-08-06 16:55] LABS: Troponin-I High Sensitivity < 3.5 ng/L (<3.5-35.0)
[2020-08-06] MEDS: 0.9 % Sodium Chloride 1,000 ML 999 ML IVCONT (17:40)
[2020-08-06 17:45] VITALS: RESP 18
[2020-08-06] MEDS: Morphine Sulfate 2 MG/ML CARTRIDGE IVPUSH (17:45)
[2020-08-06] MEDS: oxyCODONE HCl Immed Release 5 MG TABLET 10 MG PO (17:45)
--- NOTE | 2020-08-06 17:50 | PC.NURSE ---
Pt medicated per jul for 10/ diffuse abd pain. Pt denies n/v and other abd associated symptoms. Pt given urinal and cup- aware of need for clean catch. call schmitz within reach
[2020-08-06 18:41] LABS: Glucose Urine UA NEG (NEG); Leukocyte Esterase Urine NEG (NEG); Nitrite Urine POS (NEG); PH 6.5 (5.0-8.0); Specific Gravity - Urine >= 1.030 (1.005-1.025); UACC Culture Trigger YES; Urine Blood NEG (NEG); Urine Ketones NEG (NEG); Urine Protein TRACE MG/DL (NEG-TRACE)
[2020-08-06 19:02] VITALS: RESP 18
[2020-08-06] MEDS: Morphine Sulfate 4 MG/ML CARTRIDGE IVPUSH (19:02)
[2020-08-06 19:16] LABS: Appearance Urine CLEAR; Color Urine DARK YELLOW
[2020-08-06 19:20] LABS: COVID-19 Test Negative (Negative)
[2020-08-06 19:23] LABS: Calcium Oxalate Crystals Urine 3+ /LPF; Granular Casts Urine 0-2 /LPF; Hyaline Casts Urine 0-2 /LPF; Mucus Urine 4+ /LPF; RBC Urine 0 /HPF (0)
[2020-08-06 19:32] VITALS: BP 111/66; PULSE 98; RESP 18; TEMP 37.6; O2SAT 100
--- NOTE | 2020-08-06 19:36 | PC.NURSE ---
Pt aware of plan for discharge home with plan to follow up with PCP, as discussed with EMMY Kelly. Preparing for discharge.
== END 2020-08-06 19:44 | disposition home or self-care (01) ==
PROVIDERS: Physician Assistant; Emergency Provider Emergency Medicine Emergency Medical Services; PCP Internal Medicine
DX: R10.9 Unspecified abdominal pain (principal); R06.02 Shortness of breath; Z98.84 Bariatric surgery status; Z79.82 Long term (current) use of aspirin; Z20.822 Contact with and (suspected) exposure to COVID-19; Z79.899 Other long term (current) drug therapy; Z86.718 Personal history of other venous thrombosis and embolism; Z79.01 Long term (current) use of anticoagulants
CPT/HCPCS: 36415; 71045; 74177; 80048; 80076; 80320; 81001; 81003; 82140; 83690; 83735; 83880; 84484; 85025; 85610; 85730; 86850; 86900; 87086; 87635; 93005; 96365; 96375; 99284; J2270; Q9967

== ENCOUNTER → 2020-08-17 13:57 | Outpatient (BNVA) | payer OTHER, SELFPAY | PROVIDERS: PCP Internal Medicine; Visit Provider Internal Medicine Gastroenterology ==

== ENCOUNTER 2020-08-17 15:08 | Inpatient (IN) | payer OTHER, SELFPAY ==
--- NOTE | ~2020-08-17 | US_ITS ---
EXAMINATION: ABDOMINAL ULTRASOUND LIMITED CLINICAL INFORMATION: Abdominal distention. Cirrhosis. COMPARISON: 08/06/2020. TECHNIQUE: Real-time imaging of the right upper quadrant abdominal viscera. FINDINGS: PANCREAS: The visualized pancreatic head and body are normal in appearance. The remainder of the pancreas is obscured from visualization by the overlying bowel gas. LIVER: The liver is of normal size and diffuse increased echogenicity without focal lesions nor intrahepatic biliary ductal dilation. There is subcapsular nodularity. GALLBLADDER: Normal. The gallbladder is physiologically distended without evidence of stones, sludge, polyps, wall thickening or pericholecystic fluid. COMMON BILE DUCT: Normal in caliber measuring 0.4 cm in diameter. RIGHT KIDNEY: Normal. No hydronephrosis. No renal calculi or focal parenchymal lesions. The kidney measures 11.0 cm in maximum dimension. FREE FLUID: There is a moderate amount of free fluid within the abdomen. US/US abdomen limited IMPRESSION: Liver of diffuse increased echogenicity without focal lesions. There is subcapsular nodularity consistent with the stated history of cirrhosis. Neither hydronephrosis nor nephrolithiasis. Moderate amount of free fluid.
[2020-08-17 15:48] VITALS: BP 124/70; PULSE 95; RESP 22; TEMP 37.1; O2SAT 100; BMI 31.7
[2020-08-17 19:07] LABS: MANUAL DIFF FLAG NO
[2020-08-17 19:12] LABS: Basophils Percent Auto 0.4 % (0-2); Eosinophils Absolute Auto 0.1 X10*3/uL (0.0-0.4); Eosinophils Percent Auto 1.1 % (0-4); Hematocrit 28.3 % (42-52); Hemoglobin 8.6 g/dl (14.0-18.0); Imm Gran Abs Auto 0.02 X10*3/uL (0.00-0.03); Imm Gran Pct Auto 0.3 % (0.0-0.4); Lymphocytes Absolute Auto 1.3 X10*3/uL (1.2-4.9); Lymphocytes Percent Auto 18.1 % (20-40); Mean Corpuscular HGB Conc 30.4 g/dl (31.0-36.0); Mean Corpuscular Hemoglobin 23.6 pg (27.0-33.0); Mean Corpuscular Volume 77.7 fL (80-98); Mean Platelet Volume 8.6 fL (9.4-12.4); Monocytes Absolute Auto 0.8 X10*3/uL (0.1-1.2); Monocytes Percent Auto 10.5 % (2-11); Neutrophils Absolute Auto 5.2 X10*3/uL (2.0-8.3); Neutrophils Percent Auto 69.6 % (45-73); Platelet Count 254 X10*3/uL (160-400); Red Blood Count 3.64 X10*6/uL (4.60-5.80); Red Cell Distribution Width 19.1 % (11.0-16.0); White Blood Count 7.4 X10*3/uL (4.8-10.8)
[2020-08-17 19:58] LABS: Alanine Aminotransferase 15 U/L (0-40); Albumin Level 2.8 g/dL (3.5-5.0); Alkaline Phosphatase 113 U/L (39-117); Anion Gap 15 (12-20); Aspartate Amino Transferase 48 U/L (5-37); Bilirubin Direct 0.5 mg/dL (0.0-0.5); Bilirubin Total 1.3 mg/dL (0.0-1.0); Blood Urea Nitrogen 7 mg/dL (9-16); Calcium 7.6 mg/dL (8.4-10.2); Carbon Dioxide 23 mmol/L (22-29); Chloride 96 mmol/L (96-108); Creatinine Clr Calc Pharmacy 151.3; Estimated Glomerular Filt Rate > 60; Glucose Random 137 mg/dL (60-115); Lipase 142 U/L (8-78); Potassium 2.9 mmol/L (3.3-5.1); Sodium 131 mmol/L (135-145); Total Protein 6.4 g/dL (6.5-8.0)
--- NOTE | 2020-08-17 21:40 | ED_ITS ---
HPI - Abdominal Pain General Chief Complaint: Abdominal Pain Stated Complaint: abdominal pain Time Seen by Provider: 08/17/20 21:40 Source: patient Mode of arrival: ambulatory History of Present Illness HPI narrative: This is a 50-year-old male who presents with persistent fatigue, poor appetite, abdominal discomfort in the epigastric region for the past few days and reports weight loss but denies any urinary symptoms, diarrhea and state s that he has been taking his medications as prescribed. Patient denies any fevers, chills has had some mild nausea. Patient was evaluated by Dr. Paul allan and referred to the emergency room. Patient denies any alcohol use. Related Data Home Medications Medication Instructions Recorded Confirmed albuterol sulfate 2 puff INHALATION Q6H PRN 08/06/20 08/17/20 aspirin 81 mg tablet,delayed 81 mg PO DAILY 08/06/20 08/17/20 release cyanocobalamin (vitamin B-12) 1,000 mcg PO DAILY 08/06/20 08/17/20 ergocalciferol (vitamin D2) 1,250 1,250 mcg PO FR@1000 08/06/20 08/17/20 mcg (50,000 unit) capsule escitalopram oxalate 20 mg tablet 20 mg PO DAILY 08/06/20 08/17/20 ferrous sulfate 325 mg (65 mg 325 mg PO DAILY tab 08/06/20 08/17/20 iron) tablet folic acid 1 mg tablet 1 mg PO DAILY 08/06/20 08/17/20 loratadine 10 mg PO DAILY 08/06/20 08/17/20 minocycline 100 mg PO BID 08/06/20 08/17/20 multivitamin [Daily-Tomas] 1 tab PO DAILY 08/06/20 08/17/20 oxycodone 5 mg tablet 10 mg PO Q6H PRN tab 08/06/20 08/17/20 rivaroxaban 20 mg tablet 20 mg PO QPM 08/06/20 08/17/20 Previous Rx's Medication Instructions Recorded furosemide [Lasix] 60 mg PO QAM 15 Days #45 tab 08/06/20 oxycodone 5 mg PO Q6H PRN #14 tab 08/06/20 spironolactone 125 mg PO QAM 15 Days #38 tab 08/06/20 Allergies Allergy/AdvReac Type Severity Reaction Status Date / Time No Known Allergies Allergy Verified 08/17/20 15:53 [No Known Allergies*] Review of Systems Review of Systems Pertinent positives and negatives as stated in HPI 10 point review of systems is otherwise negative. Physical Exam Vital Signs: Vital Signs: Last Vital Signs Temp 97.8 F 08/18/20 05:44 Pulse 95 08/18/20 05:44 Resp 16 08/18/20 05:44 BP 109/64 08/18/20 05:44 Pulse Ox 99 08/18/20 05:44 Body Mass Index 31.7 VITAL SIGNS: Reviewed. GENERAL: Well developed, well nourished, in no acute distress. HEAD: Normocephalic/atraumatic, EYES: PERRLA, EOMI intact without pain, no nystagmus/pallor/icterus noted OROPHARYNX: no oral lesions noted, posterior pharynx clear , dry mucosa NECK: Supple, no adenopathy LUNGS: Normal breath sounds. No adventitious sounds or accessory muscle use. SpO2<100> CARDIOVASCULAR: Regular rate and rhythm without noted murmurs, no JVD or lower extremity edema. ABDOMEN: Soft, tenderness palpation in the epigastric and along diaphragmatic margin without rebound, no fluid wave noted, non-distended with bowel sounds. SKIN: Inspection of the skin reveals no rashes, ulcerations, jaundice, pallor, or petechiae. NEUROLOGIC: Alert and oriented x 4. Strength and sensation to light touch were grossly intact x 4. Course Course Course Narrative: This is a 50-year-old male with history and clinical p resentation of recent increase in Lasix as well as spironolactone on 08/06 with noted hypokalemia on presentation today which may explain in part some of patient's symptoms. Otherwise, the lab work is chronically stable and although there is a mild elevation of lipase and a suspicion for possible pancreatitis these values are within the range that patient typically has. I discussed this case with Dr. Miller and potassium will be replaced, patient will receive IV fluids, patient will receive pain medication, and an ultrasound to evaluate for ascites. Of note, on prior presentation nitrites were noted to be positive, but on re-evaluation today there is no evidence of infection. I discussed the case with the hospitalist team who is agreeable for admission. MDM - Abdominal Pain Lab Data Result diagrams: 08/18/20 06:19 03/30/21 06:19 Labs: Lab Results 08/17/20 08/17/20 08/17/20 Range/Units 19:02 19:02 19:02 WBC 7.4 (4.8-10.8) X10*3/uL RBC 3.64 L (4.60-5.80) X10*6/uL Hgb 8.6 L (14.0-18.0) g/dl Hct 28.3 L (42-52) % MCV 77.7 L (80-98) fL MCH 23.6 L (27.0-33.0) pg MCHC 30.4 L (31.0-36.0) g/dl RDW 19.1 H (11.0-16.0) % Plt Count 254 (160-400) X10*3/uL MPV 8.6 L (9.4-12.4) fL Immature Gran % (Auto) 0.3 (0.0-0.4) % Neut % (Auto) 69.6 (45-73) % Lymph % (Auto) 18.1 L (20-40) % [place] % (Auto) 10.5 (2-11) % Eos % (Auto) 1.1 (0-4) % Baso % (Auto) 0.4 (0-2) % Lymph # (Auto) 1.3 (1.2-4.9) X10*3/uL [place] # (Auto) 0.8 (0.1-1.2) X10*3/uL Eos # (Auto) 0.1 (0.0-0.4) X10*3/uL Baso # (Auto) 0.0 (0.0-0.2) X10*3/uL Abs Immat Gran (auto) 0.02 (0.00-0.03) X10*3/uL Absolute Neuts (auto) 5.2 (2.0-8.3) X10*3/uL Absolute Nucleated RBC 0.000 (0.0-0.012) X10*3/uL Nucleated RBC % (auto) 0.0 (0.0-0.2) /100WBC Hold Blue Top SEE NOTE Sodium 131 L (135-145) mmol/L Potassium 2.9 L D (3.3-5.1) mmol/L Chloride 96 (96-108) mmol/L Carbon Dioxide 23 (22-29) mmol/L Anion Gap 15 (12-20) BUN 7 L (9-16) mg/dL Creatinine 0.73 (0.5-1.4) mg/dL Estim Creat Clear Calc 151.3 Estimated GFR > 60 Random Glucose 137 H (60-115) mg/dL Calcium 7.6 L (8.4-10.2) mg/dL Total Bilirubin 1.3 H (0.0-1.0) mg/dL Direct Bilirubin 0.5 (0.0-0.5) mg/dL AST 48 H (5-37) U/L ALT 15 (0-40) U/L Alkaline Phosphatase 113 D (39-117) U/L Total Protein 6.4 L (6.5-8.0) g/dL Albumin 2.8 L (3.5-5.0) g/dL Lipase 142 H (8-78) U/L Urine Color Urine Appearance Urine pH (5.0-8.0) Ur Specific [place] (1.005-1.025) Urine Protein (NEG-TRACE) MG/DL Urine Glucose (UA) (NEG) MG/DL Urine Ketones (NEG) MG/DL Urine Blood (NEG) Urine Nitrite (NEG) Ur Leukocyte Esterase (NEG) 08/17/20 Range/Units 22:38 WBC (4.8-10.8) X10*3/uL RBC (4.60-5.80) X10*6/uL Hgb (14.0-18.0) g/dl Hct (42-52) % MCV (80-98) fL MCH (27.0-33.0) pg MCHC (31.0-36.0) g/dl RDW (11.0-16.0) % Plt Count (160-400) X10*3/uL MPV (9.4-12.4) fL Immature Gran % (Auto) (0.0-0.4) % Neut % (Auto) (45-73) % Lymph % (Auto) (20-40) % [place] % (Auto) (2-11) % Eos % (Auto) (0-4) % Baso % (Auto) (0-2) % Lymph # (Auto) (1.2-4.9) X10*3/uL [place] # (Auto) (0.1-1.2) X10*3/uL Eos # (Auto) (0.0-0.4) X10*3/uL Baso # (Auto) (0.0-0.2) X10*3/uL Abs Immat Gran (auto) (0.00-0.03) X10*3/uL Absolute Neuts (auto) (2.0-8.3) X10*3/uL Absolute Nucleated RBC (0.0-0.012) X10*3/uL Nucleated RBC % (auto) (0.0-0.2) /100WBC Hold Blue Top Sodium (135-145) mmol/L Potassium (3.3-5.1) mmol/L Chloride (96-108) mmol/L Carbon Dioxide (22-29) mmol/L Anion Gap (12-20) BUN (9-16) mg/dL Creatinine (0.5-1.4) mg/dL Estim Creat Clear Calc Estimated GFR Random Glucose (60-115) mg/dL Calcium (8.4-10.2) mg/dL Total Bilirubin (0.0-1.0) mg/dL Direct Bilirubin (0.0-0.5) mg/dL AST (5-37) U/L ALT (0-40) U/L Alkaline Phosphatase (39-117) U/L Total Protein (6.5-8.0) g/dL Albumin (3.5-5.0) g/dL Lipase (8-78) U/L Urine Color DARK YELLOW Urine Appearance CLEAR Urine pH 6.0 (5.0-8.0) Ur Specific [place] >= 1.030 H (1.005-1.025) Urine Protein NEG (NEG-TRACE) MG/DL Urine Glucose (UA) NEG (NEG) MG/DL Urine Ketones NEG (NEG) MG/DL Urine Blood NEG (NEG) Urine Nitrite NEG (NEG) Ur Leukocyte Esterase NEG (NEG) Discharge Plan Discharge Clinical Impression: Acute hypokalemia, Ascites due to alcoholic cirrhosis Patient Disposition: Admitted As Inpatient [facility] Past Medical History Source: nursing notes reviewed Medical History DVT (deep venous thrombosis) Hidradenitis suppurativa Seizures Surgical History H/O colonoscopy H/O gastric bypass H/O hernia repair Family History Family History Father Pancreatic cancer Paternal Grandmother Cancer Social History Social History Household Members: None Alcohol intake: former Smoking Status: Current every day smoker Tobacco Type: Cigarette Packs Per Day: 1 Advance Directives: No Advance Directives Information Provided: Yes
[2020-08-17 22:45] LABS: Glucose Urine UA NEG (NEG); Leukocyte Esterase Urine NEG (NEG); Nitrite Urine NEG (NEG); Specific Gravity - Urine >= 1.030 (1.005-1.025); Urine Blood NEG (NEG); Urine Ketones NEG (NEG); Urine Protein NEG (NEG-TRACE)
[2020-08-17 22:46] LABS: Appearance Urine CLEAR; Color Urine DARK YELLOW
--- NOTE | 2020-08-17 23:06 | ECG_ITS ---
Test Reason : ABDOMINAL PAIN Blood Pressure : / mmHG Vent. Rate : 091 BPM Atrial Rate : 091 BPM P-R Int : 124 ms QRS Dur : 084 ms QT Int : 420 ms P-R-T Axes : 054 051 105 degrees QTc Int : 516 ms Normal sinus rhythm Possible Left atrial enlargement Lateral St changes - consider ischemia Abnormal ECG When compared with ECG of 06-AUG-2020 16:05, QT has lengthened Referred By: Marianna Samuels Electronically Signed By:Kieran Chavez
[2020-08-17 23:30] VITALS: BP 114/70; PULSE 96; RESP 16; TEMP 37; O2SAT 99
[2020-08-17 23:41] VITALS: RESP 20
[2020-08-17] MEDS: Morphine Sulfate 2 MG/ML CARTRIDGE 1 MG IVPUSH (23:41)
[2020-08-17] MEDS: Potassium Chloride ER 20 MEQ TAB.ER.PRT 60 MEQ PO (23:41)
[2020-08-17] MEDS: Potassium Chloride/H20 10 MEQ/100 ML PIGGYBACK 100 MEQ IV (23:41)
[2020-08-17] MEDS: 0.9 % Sodium Chloride 500 ML 999 ML IV (23:42)
[2020-08-18] MEDS: oxyCODONE HCl Immed Release 5 MG TABLET 10 MG PO ×4 (02:19→20:19)
[2020-08-18] MEDS: Potassium Chloride/H20 10 MEQ/100 ML PIGGYBACK 100 MEQ IV (02:20)
[2020-08-18 02:52] VITALS: BP 115/73; PULSE 94; RESP 16; TEMP 36.4; O2SAT 97
--- NOTE | 2020-08-18 02:55 | P.HPHOSP_ITS ---
History of Present Illness Date of Service: 08/18/20 Chief Complaint: Abdominal discomfort 50-year-old male with a past medical history of liver cirrhosis, ascites, DVT, history of seizures, any Aura, anxiety, depression, asthma presented to the hospital with a chief complaint of abdominal discomfort. Patient mentioned that he has been having abdominal discomfort for the past 4 weeks. Has decreased appetite. Mentions that he had recent paracentesis at [facility]. Mentions he also takes diuretics. Denies any chest pain palpitations. Denies any fever chills cough. Denies any urinary symptoms. Review of all other systems is negative except mentioned above ER course: Per ER team patient noted to have mild diffuse abdominal discomfort, ultrasound showed moderate ascites. Less concern for any SBP. Patient mentating well. Labs essentially benign. Patient afebrile. Noted to have hypokalemia which has been repleted. Admitted to the hospital for further management. [facility] Medical History DVT (deep venous thrombosis) Hidradenitis suppurativa Seizures Family History Father Pancreatic cancer Paternal Grandmother Cancer Surgical History H/O colonoscopy H/O gastric bypass H/O hernia repair Social History Household Members: None Alcohol intake: former Smoking Status: Current every day smoker Tobacco Type: Cigarette Packs Per Day: 1 Advance Directives: No Advance Directives Information Provided: Yes Meds Allergies Allergy/AdvReac Type Severity Reaction Status Date / Time No Known Allergies Allergy Verified 08/17/20 15:53 [No Known Allergies*] Active Medications: Current Medications Generic Name Dose Route Start Last Admin Trade Name Freq PRN Reason Stop Dose Admin Heparin Sodium (Porcine) 5,000 unit 08/18/20 03:00 Heparin Sodium,Porcine 5,000 Unit/Ml Vial SUBCUT Q12H [facility] Senna 17.2 mg 08/18/20 02:52 Sennosides 8.6 Mg Tablet PO BEDTIME PRN Constipation Sodium Chloride 3 ml 08/18/20 08:00 0.9 % Sodium Chloride Flush 3 Ml Syringe IVFLUSH QSHIFT [facility] Home Medications Medication Instructions Recorded Confirmed Last Taken Type albuterol sulfate 2 puff INHALATION Q6H PRN 08/06/20 08/17/20 Unknown History aspirin 81 mg tablet,delayed 81 mg PO DAILY 08/06/20 08/17/20 08/05/20 History release cyanocobalamin (vitamin B-12) 1,000 mcg PO DAILY 08/06/20 08/17/20 08/05/20 History ergocalciferol (vitamin D2) 1,250 1,250 mcg PO FR@1000 08/06/20 08/17/20 07/31/20 History mcg (50,000 unit) capsule escitalopram oxalate 20 mg tablet 20 mg PO DAILY 08/06/20 08/17/20 08/05/20 History ferrous sulfate 325 mg (65 mg 325 mg PO DAILY tab 08/06/20 08/17/20 08/05/20 History iron) tablet folic acid 1 mg tablet 1 mg PO DAILY 08/06/20 08/17/20 08/05/20 History loratadine 10 mg PO DAILY 08/06/20 08/17/20 08/05/20 History minocycline 100 mg PO BID 08/06/20 08/17/20 08/05/20 History multivitamin [Daily-Tomas] 1 tab PO DAILY 08/06/20 08/17/20 08/05/20 History oxycodone 5 mg tablet 10 mg PO Q6H PRN tab 08/06/20 08/17/20 Unknown History rivaroxaban 20 mg tablet 20 mg PO QPM 08/06/20 08/17/20 08/05/20 History Physical Exam Vital Signs and Narrative: Vital Signs: Last Vital Signs Temp 98.6 F 08/17/20 23:30 Pulse 96 08/17/20 23:30 Resp 20 08/17/20 23:41 BP 114/70 08/17/20 23:30 Pulse Ox 99 08/17/20 23:30 Body Mass Index 31.7 Gen: Appears be in no acute distress; comfortably lying in the bed. HEENT: NCAT, Moist mucosa. Pulmonary: Vesicular breath sounds, fair air entry CVS: Normal S1-S2 Abdomen: BS+, Soft, distended and mildly tender diffusely. Extremities: Warm well perfused Neuro: Alert and awake. Results Labs CBC and Chem 7: 08/17/20 19:02 08/17/20 19:02 Labs: Laboratory Results - last 24 hr 08/17/20 08/17/20 08/17/20 19:02 19:02 19:02 MCV 77.7 L MCH 23.6 L MCHC 30.4 L RDW 19.1 H Plt Count 254 MPV 8.6 L Immature Gran % (Auto) 0.3 Neut % (Auto) 69.6 Lymph % (Auto) 18.1 L [place] % (Auto) 10.5 Eos % (Auto) 1.1 Baso % (Auto) 0.4 Lymph # (Auto) 1.3 [place] # (Auto) 0.8 Eos # (Auto) 0.1 Baso # (Auto) 0.0 Abs Immat Gran (auto) 0.02 Absolute Neuts (auto) 5.2 Absolute Nucleated RBC 0.000 Nucleated RBC % (auto) 0.0 Hold Blue Top SEE NOTE Anion Gap 15 Estim Creat Clear Calc 151.3 Estimated GFR > 60 Random Glucose 137 H Calcium 7.6 L Total Bilirubin 1.3 H Direct Bilirubin 0.5 AST 48 H ALT 15 Alkaline Phosphatase 113 D Total Protein 6.4 L Albumin 2.8 L Lipase 142 H Urine Color Urine Appearance Urine pH Ur Specific [place] Urine Protein Urine Glucose (UA) Urine Ketones Urine Blood Urine Nitrite Ur Leukocyte Esterase 08/17/20 22:38 MCV MCH MCHC RDW Plt Count MPV Immature Gran % (Auto) Neut % (Auto) Lymph % (Auto) [place] % (Auto) Eos % (Auto) Baso % (Auto) Lymph # (Auto) [place] # (Auto) Eos # (Auto) Baso # (Auto) Abs Immat Gran (auto) Absolute Neuts (auto) Absolute Nucleated RBC Nucleated RBC % (auto) Hold Blue Top Anion Gap Estim Creat Clear Calc Estimated GFR Random Glucose Calcium Total Bilirubin Direct Bilirubin AST ALT Alkaline Phosphatase Total Protein Albumin Lipase Urine Color DARK YELLOW Urine Appearance CLEAR Urine pH 6.0 Ur Specific [place] >= 1.030 H Urine Protein NEG Urine Glucose (UA) NEG Urine Ketones NEG Urine Blood NEG Urine Nitrite NEG Ur Leukocyte Esterase NEG Imaging Radiologist's Impressions: Impressions Abdomen Ultrasound 08/18/20 00:00 IMPRESSION: Liver of diffuse increased echogenicity without focal lesions. There is subcapsular nodularity consistent with the stated history of cirrhosis. Neither hydronephrosis nor nephrolithiasis. Moderate amount of free fluid. Assessment and Plan (1) Cirrhosis of liver with ascites: Qualifiers: Hepatic cirrhosis type: alcoholic cirrhosis Qualified Code(s): K70.31 - Alcoholic cirrhosis of liver with ascites Status: Acute 50-year-old male with a past medical history of DVT, anemia, anxiety, depression, asthma, history of alcohol abuse, liver cirrhosis with ascites; presented to the hospital with a chief complaint of abdominal discomfort and poor appetite. Abdominal discomfort: Likely in the setting of liver cirrhosis/ascites. Has been going on for 4 weeks. Also had recent paracentesis as per the patient. Ultrasound showed moderate free fluid. Patient is on diuretics at home-which will be continued. Next and will consult IR for possible paracentesis. Gastroenterology consult Hypokalemia: Repleted: Will monitor levels. History of DVT: Continue home medications. Diet: NPO for now Code status: Full code
[2020-08-18 05:44] VITALS: BP 109/64; PULSE 95; RESP 16; TEMP 36.6; O2SAT 99
[2020-08-18 06:05] LABS: COVID-19 Test Negative (Negative)
[2020-08-18 06:30] LABS: MANUAL DIFF FLAG NO
[2020-08-18 06:39] LABS: Basophils Percent Auto 0.4 % (0-2); Eosinophils Absolute Auto 0.1 X10*3/uL (0.0-0.4); Eosinophils Percent Auto 1.2 % (0-4); Hematocrit 24.4 % (42-52); Hemoglobin 7.6 g/dl (14.0-18.0); Imm Gran Abs Auto 0.02 X10*3/uL (0.00-0.03); Imm Gran Pct Auto 0.2 % (0.0-0.4); Lymphocytes Absolute Auto 2.1 X10*3/uL (1.2-4.9); Lymphocytes Percent Auto 22.8 % (20-40); Mean Corpuscular HGB Conc 31.1 g/dl (31.0-36.0); Mean Corpuscular Hemoglobin 24.3 pg (27.0-33.0); Monocytes Absolute Auto 1.1 X10*3/uL (0.1-1.2); Monocytes Percent Auto 11.6 % (2-11); Neutrophils Absolute Auto 5.8 X10*3/uL (2.0-8.3); Neutrophils Percent Auto 63.8 % (45-73); Platelet Count 256 X10*3/uL (160-400); Red Blood Count 3.13 X10*6/uL (4.60-5.80); Red Cell Distribution Width 19.5 % (11.0-16.0); White Blood Count 9.2 X10*3/uL (4.8-10.8)
[2020-08-18 07:13] LABS: Anion Gap 11 (12-20); Blood Urea Nitrogen 7 mg/dL (9-16); Calcium 7.6 mg/dL (8.4-10.2); Carbon Dioxide 27 mmol/L (22-29); Chloride 96 mmol/L (96-108); Creatinine Clr Calc Pharmacy 149.2; Estimated Glomerular Filt Rate > 60; Glucose Random 111 mg/dL (60-115); Potassium 3.6 mmol/L (3.3-5.1); Sodium 130 mmol/L (135-145)
--- NOTE | 2020-08-18 07:43 | PC.NURSE ---
Late entry: Throughout shift, patient has been pleasant and cooperative. 22g IV access established by KATHRYN Chapin earlier this shift. Pt medicated as ordered for pain and hypokalemia. Vital signs stable throughout shift. Plan for admission, awaiting bed at this time. Given tuna sandwich, jell-o, cranberry juice (x2), and ice chips as requested. Has remained calm/cooperative throughout shift, but has repeatedly asked for pain medications. Hospitalist has seen patient. Rajinder Sams RN assumed care of this patient.
[2020-08-18] MEDS: Furosemide 40 MG TABLET PO (07:56)
[2020-08-18] MEDS: Escitalopram Oxalate 20 MG TABLET PO (07:57)
[2020-08-18] MEDS: Spironolactone 25 MG TABLET 100 MG PO (07:57)
[2020-08-18] MEDS: 0.9 % Sodium Chloride Flush 3 ML SYRINGE IVFLUSH ×3 (07:58→20:23)
[2020-08-18] MEDS: Rivaroxaban 20 MG TABLET PO (07:58)
[2020-08-18 09:16] LABS: Iron 17 mcg/dL (45-160); Percent Iron Saturation 6 % (15-50); Total Iron Binding Capacity 265 mcg/dL (228-428); Unsaturated Iron Binding 248 ug/dL
[2020-08-18 09:35] LABS: Ferritin 15 ng/mL (20-250)
--- NOTE | 2020-08-18 09:36 | MHC.CM.PN ---
pt is an employee at [employer] [facility] [employer] [place] plan will likely be home no services
[2020-08-18 09:42] VITALS: BP 120/79; PULSE 99; RESP 18; TEMP 36.6; O2SAT 98
[2020-08-18 10:13] LABS: Folate 12.1 ng/mL (> or = 4.0); Vitamin B12 > 2000 pg/mL (200-900)
[2020-08-18] MEDS: Spironolactone 25 MG TABLET 150 MG PO (10:30)
[2020-08-18] MEDS: Nicotine 14 MG PATCH.TD24 TRANSDERMA (12:39)
[2020-08-18 14:37] LABS: INTERNATIONAL NORM RATIO 4.1 (0.9-1.1)
[2020-08-18 15:12] LABS: Partial Thromboplastin Time 43.6 SEC (24.1-38.0)
[2020-08-18 15:35] VITALS: BP 115/69; PULSE 108; RESP 20; TEMP 36.9; O2SAT 97
--- NOTE | 2020-08-18 15:54 | P.EN_ITS ---
Event Note Date of Service: 08/18/20 Event Note: 50-year-old male with a past medical history of DVT, anemia, anxie ty, depression, asthma, history of alcohol abuse, liver cirrhosis with ascites; presented to the hospital with a chief complaint of abdominal discomfort and poor appetite. Abdominal discomfort with history of cirrhosis, patient recently discharged from [facility] on August 04 and underwent paracentesis on August 03.3 L of fluid was drained, Abdominal pain Likely due to ascites with abdominal distention, CT abdomen and pelvis showed no acute abnormality, it showed cirrhotic liver with moderate ascites and recanalized paraumbilical vein Patient abdominal pain is out of proportion to CT finding and examination, elevated lipase 142 patient was heavily drinking alcohol up until recently, likely mild pancreatitis contributing to pain, recent normal ammonia level, no confusion. Will resume diet, patient refusing low-salt will add Ensure b.i.d. Patient with no shortness of breath or hypoxemia, will arrange for paracentesis after holding Xarelto for 2 days, check PT INR Case discussed with Dr. Miller will increase dose of Lasix and Aldactone, follow electrolytes Patient will undergo upper and lower endoscopy by GI after paracentesis INR 4.1 repeat INR at am. Strongly advised to abstain from alcohol. Anemia with low MCV iron studies consistent with iron deficiency likely slow blood loss due to hemorrhoids, will place patient on iron supplement. Hypokalemia: Repeat potassium within normal range. History of aorto iliac thrombus; on Xarelto will hold Xarelto for paracentesis and will consult Dr. Villasenor to discuss continued use of Xarelto since patient hematocrit is dropping likely due to hemorrhoidal bleed. Tobacco use disorder will place on nicotine patch 14 mg daily smoking cessation advised History of anxiety depression continue Lexapro History of seizure History of asthma no acute exac. DVT prophylaxis hold Xarelto and placed on compression boots.
[2020-08-18] MEDS: Ferrous Sulfate 324 MG TABLET.DR PO (17:35)
--- NOTE | 2020-08-18 19:25 | P.CNGI_ITS ---
History of Present Illness Data of Consult Service Date: 08/18/20 Requesting physician: Kanchan Garcia Primary Care Provider: Unknown Physician HPI Reason for consult: ESLD with ascites 50 Y M with ESLD complicated by ascites due to ETOH abuse and Hepatitis C. Pt is known to me from prior GI clinic visits and was admitted to [facility] yesterday due to fatigue, dizziness, abdominal pain and decreased p.o. intake. Lab evaluation was significant for anemia and hyperkalemia. IMAGING STUDIES: 08/06/[address] SCAN SHOWED: No acute findings within the abdomen or pelvis to explain the patient's symptomatology. Morphologically cirrhotic liver with small moderate ascites and recanalized paraumbilical vein. [place] [facility] [place]: The liver is normal in size but demonstrates mildly decreased attenuation and a mildly nodular contour. The gallbladder is physiologically distended without definitive gallstones. The pancreas, spleen and adrenal glands are unremarkable. Symmetrically enhancing kidneys without hydronephrosis. Surgical changes of the GE junction and stomach consistent with gastric bypass. Normal caliber loops of small and large bowel. There is mucosal fatty infiltration involving the ascending colon and rectum, nonspecific. Small to moderate amount of abdominal and pelvic ascites. Nonaneurysmal abdominal aorta. Recannulized umbilical vein. The bladder is normal in appearance. The prostate gland is not enlarged. No gross inguinal lymphadenopathy. Mild degenerative changes of the spine. IMPRESSION: Cirrhotic appearance of the liver with mild to moderate ascites and a recanalized umbilical vein. Patient feels better with improvement in abdominal pain pain medication, weakness and dizziness. He notes improvement in his appetite. He was taking iron once a day and having diarrhea with multiple blackish/brown mucousy BMs a day Has lost 8 lbs over the past week. Quitted drinking a month ago. Was drinking a lot - upto 14 beers a day Quitted for a year and a half in 2017. Resumed drinking when he was furloughed since he was bored. 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 Patient denies major cardiac or pulmonary problems, loud snoring or sleep apnea Denies problems with anesthesia in the past. On chronic anticoagulation and a baby aspirin. Patient denies known family history of colon polyps, colon cancer. Dad of pancreatic CA at age 69 yrs Paternal GM had breast and colon cancer in her 80's PAST EGD/COLONOSCOPY: Colonoscopy at [facility] 2 yrs ago - showed diverti culosis and polyps were removed. PAST GI HISTORY BY REVIEW OF MEDICAL RECORDS [place] [facility] [place] with [address] complaints and CT showing liver cirrhosis with moderate ascites, and patient was admitted to the floor for concern for SBP/paracentesis. During admission patient had an episode of rectal bleeding which was from external hemorrhoids. Patient also had an U.S. guided paracentesis with evacuation of 3300 mL and was initiated on Spironolactone and Lasix upon discharge. Patient's discharge hemoglobin was in was 7.1 Review of Systems Constitutional: Constitutional: Reports difficulty sleeping, Denies fever(s), Reports headache(s) and Denies weight loss Eyes: Eyes: Denies eye discharge, Reports dry eyes and Denies irritation ENT: Reports Normal hearing present, Denies dysphagia, Denies dizziness, Reports dry mouth and Reports headache(s) Cardiovascular: Cardiovascular: Reports chest pain, Denies leg edema, Reports dyspnea ( at rest), Reports dyspnea on exertion and Reports other ( palpitations) Respiratory: Respiratory: Denies cough, Reports dyspnea ( at rest) and Reports dyspnea on exertion Gastrointestinal: Gastrointestinal: Reports abdominal pain, Denies change in bowel habits, Denies dysphagia and Denies heartburn Genitourinary: Genitourinary: Denies dysuria Musculoskeletal: Musculoskeletal: Denies back pain and Reports arthralgias ( arthritis) Integumentary/Breasts: Skin/Breast: Denies pruritus, Reports rash, Denies jaundice and Reports other (Alopecia, photosensitivity) Neurologic: Reports Normal hearing present, Denies Abnormal speech present, Denies dizziness, Reports headache(s) and Denies seizure-like activity Psychiatric: Psychiatric: Reports anxiety, Reports depression and Denies panic attacks Endocrine: Endocrine: Denies cold intolerance, Denies flushing and Denies heat intolerance PMFSH Past Medical History Medical History (Updated 08/19/20 @ 20:34 by Ladonna Miller MD) DVT (deep venous thrombosis) Hidradenitis suppurativa Seizures Family History Family History Father Pancreatic cancer Paternal Grandmother Cancer Surgical History Surgical History H/O colonoscopy H/O gastric bypass H/O hernia repair Social History Social History Household Members: None Housing: Apartment Alcohol intake: former Smoking Status: Current every day smoker Tobacco Type: Cigarette Packs Per Day: 1 Cigarettes Per Day: 15 Second Hand Smoke Exposure: No service: No Meds Allergies Allergy/AdvReac Type Severity Reaction Status Date / Time No Known Allergies Allergy Verified 08/17/20 15:53 [No Known Allergies*] Active Medications: Current Medications Generic Name Dose Route Start Last Admin Trade Name Freq PRN Reason Stop Dose Admin Escitalopram Oxalate 20 mg 08/18/20 09:00 08/18/20 07:57 Escitalopram Oxalate 20 Mg Tablet PO 20 mg DAILY [facility] Administration Ferrous Sulfate 324 mg 08/18/20 17:00 08/18/20 17:35 Ferrous Sulfate 324 Mg Tablet.Dr PO 324 mg BIDWM [facility] Administration Furosemide 40 mg 08/18/20 09:00 08/18/20 07:56 Furosemide 40 Mg Tablet PO 40 mg DAILY [facility] Administration Protocol Loratadine 10 mg 08/18/20 21:00 Loratadine 10 Mg Tablet PO BEDTIME [facility] Nicotine 14 mg 08/18/20 09:00 08/18/20 12:39 Nicotine 14 Mg Patch.Td24 TRANSDERMA 14 mg DAILY [facility] Administration Oxycodone HCl 10 mg 08/18/20 05:42 08/18/20 14:02 Oxycodone Hcl Immed Release 5 Mg Tablet PO 10 mg Q6H PRN Administration Breakthrough Pain Senna 17.2 mg 08/18/20 02:52 Sennosides 8.6 Mg Tablet PO BEDTIME PRN Constipation Sodium Chloride 3 ml 08/18/20 08:00 08/18/20 17:35 0.9 % Sodium Chloride Flush 3 Ml Syringe IVFLUSH 3 ml QSHIFT [facility] Administration Spironolactone 150 mg 08/18/20 09:00 08/18/20 10:30 Spironolactone 25 Mg Tablet PO 150 mg DAILY [facility] Administration Protocol Vitamin B Complex/Folic Acid 1 cap 08/18/20 09:00 08/18/20 07:57 B Complex W-C No.20/Folic Acid Capsule PO 1 cap DAILY [facility] Administration Home Medications Medication Instructions Recorded Confirmed Last Taken Type cyanocobalamin (vitamin B-12) 1,000 mcg PO DAILY 08/06/20 08/18/2021 History ergocalciferol (vitamin D2) 1,250 1,250 mcg PO FR@1000 08/06/20 08/18/20 08/17/20 History mcg (50,000 unit) capsule escitalopram oxalate 20 mg tablet 20 mg PO DAILY 08/06/20 08/18/20 08/17/20 History folic acid 1 mg tablet 1 mg PO DAILY 08/06/20 08/18/20 08/17/20 History loratadine 10 mg PO BEDTIME 08/06/20 08/18/20 08/17/20 History minocycline 100 mg PO BID 08/06/20 08/18/20 08/17/20 History multivitamin [Daily-[place]] 1 tab PO DAILY 08/06/20 08/18/20 08/17/20 History oxycodone 5 mg tablet 10 mg PO Q6H PRN tab 08/06/20 08/18/20 08/17/20 History Physical Exam Vital Signs: Vital Signs: Last Vital Signs Temp 98.5 F 08/18/20 15:35 Pulse 108 H 08/18/20 15:35 Resp 20 08/18/20 15:35 BP 115/69 08/18/20 15:35 Pulse Ox 97 08/18/20 15:35 Body Mass Index 31.7 Const: General: no acute distress and ill appearing Nutritional Appearance: average body habitus Orientation/consciousness: patient oriented x3 Limitations: no limitations HENMT: Head: Yes normal to inspection Ears: hearing grossly normal bilaterally Mouth: Normal oral and palatal mucosa present Eyes: Sclerae: sclerae normal Pupils: Equal, round and reactive pupils present Neck: Neck: Yes normal visual inspection Chest: Chest palpation & inspection: normal inspection of the chest Resp: Effort & Inspection: normal respiratory effort Auscultation: clear to auscultation bilaterally Cardio: Palpation: normal PMI Rate: regular rate Rhythm: regular rhythm Heart sounds: S1 normal heart sound present, S2 normal heart sound present and no murmurs GI: Inspection: Yes distended Palpation (GI): Soft to palpation, Tenderness to palpation present (GI), No hepatosplenomegaly present and Ascites present Auscultation: normal bowel sounds Rectal Exam - Male: Yes deferred Skin: General skin exam: no rashes or lesions noted Neuro: General: patient oriented x3, gait normal and moves all extremities Cranial nerves: Yes Equal, round and reactive pupils present and Yes Normal hearing present Speech: No Abnormal speech present Psych: Appearance: grossly normal Mental Status: mental status grossly normal Results Labs CBC & Chem 7: 08/19/20 05:48 08/18/20 06:19 Labs: Short CBC 08/18/20 Range/Units 06:19 WBC 9.2 (4.8-10.8) X10*3/uL Hgb 7.6 L (14.0-18.0) g/dl Hct 24.4 L (42-52) % Plt Count 256 (160-400) X10*3/uL BMP 08/17/20 08/18/20 19:02 06:19 Sodium 131 L 130 L Potassium 2.9 L D 3.6 D Chloride 96 96 Carbon Dioxide 23 27 BUN 7 L 7 L Creatinine 0.73 0.74 Calcium 7.6 L 7.6 L Liver Function 08/17/20 Range/Units 19:02 Total Bilirubin 1.3 H (0.0-1.0) mg/dL Direct Bilirubin 0.5 (0.0-0.5) mg/dL AST 48 H (5-37) U/L ALT 15 (0-40) U/L Alkaline Phosphatase 113 D (39-117) U/L Albumin 2.8 L (3.5-5.0) g/dL Urine 08/17/20 Range/Units 22:38 Urine Color DARK YELLOW Urine Appearance CLEAR Urine pH 6.0 (5.0-8.0) Ur Specific [place] >= 1.030 H (1.005-1.025) Urine Protein NEG (NEG-TRACE) MG/DL Urine Glucose (UA) NEG (NEG) MG/DL Assessment and Plan (1) Ascites due to alcoholic cirrhosis: Status: Acute (2) Cirrhosis of liver with ascites: Qualifiers: Hepatic cirrhosis type: alcoholic cirrhosis Qualified Code(s): K70.31 - Alcoholic cirrhosis of liver with ascites Status: Acute (3) Generalized abdominal pain: Status: Acute (4) Iron deficiency anemia: Status: Acute (5) Elevated lipase: Status: Acute 50-YM with gastric bypass 2008, Aorto-iliac thrombosis/DVT on Xarelto (managed by Dr Villasenor), acute on chronic macrocytic anemia, iron deficiency anemia with ESLD due to alcohol abuse and chronic hepatitis-C complicated by portal hypertension and ascites with complaints of recurrent abdominal pain/distension (after LVP), weakness, dizziness, SOB, decreased p.o. intake. Weakness and dizziness was likely related to hyperkalemia and has resolved since hospitalization. Appetite and p.o. intake has improved. iron studies suggestive of JESSENIA - likely multifactorial related to Gastric bypass surgery, nutritional and possible slow GI blood loss. Chronic mild elevation of lipase likely due to mild chronic pancreatitis from past ETOH abuse. RECOMMENDATIONS: 1. Agree with LVP after holding Xarelto x 2 days - check ascitic fluid for cell count and diff to rule out SBP, albumin, amylase. 2. Hepatitis B and C serologies - added to am labs. 3. I will schedule an EGD to screen for varices after his LVP, while he is off Xarelto - on 08/20 or 08/21/20. REDUCING THE RISK OF LIVER PROGRESSION: patient was advised to completely avoid use of alcohol - pt states he quitted ETOH 6 weeks ago.. HCC SURVEILLANCE: the patient is at risk of developing hepatocellular carcinoma given the presence of cirrhosis and needs 6 monthly imaging surveill ance with either abdominal ultrasound (US) or multiphase cross-sectional imaging (CT or MRI). SURVEILLANCE FOR GASTROESOPHAGEAL VARICES: I will plan schedule an EGD to screen for varices after his LVP - on 08/20 or 08/21/20. QUESTION OF LIVER TRANSPLANTATION: As pt quitted ETOH 6 weeks ago, he would need to wait another 4 months prior to referral for a liver transplant if no improvement in synthetic function of the liver.
[2020-08-18 20:00] VITALS: BP 110/56; PULSE 102; RESP 16; TEMP 36.6; O2SAT 100
[2020-08-18] MEDS: Loratadine 10 MG TABLET PO (20:19)
[2020-08-18 23:56] VITALS: BP 123/80; PULSE 99; RESP 18; TEMP 37; O2SAT 98
[2020-08-19] MEDS: oxyCODONE HCl Immed Release 5 MG TABLET 10 MG PO ×3 (02:21→14:38)
[2020-08-19 04:00] VITALS: BP 112/71; PULSE 72; RESP 18; TEMP 36.8; O2SAT 98
[2020-08-19 06:41] LABS: Hematocrit 23.1 % (42-52); Hemoglobin 7.1 g/dl (14.0-18.0)
[2020-08-19 06:52] LABS: INTERNATIONAL NORM RATIO 1.8 (0.9-1.1); Prothrombin Time 21.4 SEC (10.8-13.0)
[2020-08-19 07:02] VITALS: BP 119/58; PULSE 91; RESP 20; TEMP 36.1; O2SAT 99
[2020-08-19 08:11] LABS: Hepatitis A Antibody IgG REACTIVE (Nonreactive); ~Hepatitis A Antibody IgG 2.28 S/CO (0.00-0.99)
[2020-08-19] MEDS: Furosemide 40 MG TABLET PO (08:43)
[2020-08-19] MEDS: 0.9 % Sodium Chloride Flush 3 ML SYRINGE IVFLUSH (08:43)
[2020-08-19] MEDS: Ferrous Sulfate 324 MG TABLET.DR PO (08:44)
[2020-08-19] MEDS: Escitalopram Oxalate 20 MG TABLET PO (08:44)
[2020-08-19 08:45] VITALS: BP 119/58; PULSE 91
[2020-08-19] MEDS: Spironolactone 25 MG TABLET 150 MG PO (08:45)
[2020-08-19] MEDS: Nicotine 14 MG PATCH.TD24 TRANSDERMA (08:54)
[2020-08-19 08:55] LABS: HBS Num1 5.58 mIU/mL (0-7.99); ~HepC Num1 0.33 S/CO (0.00-0.79); ~Hepatitis B Surface Antibody NONREACTIVE (Nonreactive); ~Hepatitis C Antibody Nonreactive (Nonreactive)
[2020-08-19 09:25] LABS: HBsAGNum1 0.18 S/CO (0.00-0.99); Hepatitis B Surface Antigen Negative (Negative)
--- NOTE | 2020-08-19 09:38 | PM.CNGS ---
History of Present Illness Consult details Consult date: 08/19/20 Reason for consult: other (DVT) Narrative: 50-year-old gentleman well known to me. He had originally presented to me in 09/19/2018. At that time he had presented with trash toe. He had undergone venous thrombolysis. He has been subsequently maintained on Xarelto. He has had no issues since that time. He most recently presented to the hospital with cirrhosis of the liver and anemia. He now presents for follow-up regarding his DVT status and anemia with hemoglobin as low as 7.1. Review of Systems Review of Systems: Yes all other systems are reviewed and are negative Constitutional: Constitutional: Reports no additional constitutional complaints ENT: Reports Normal hearing present Cardiovascular: Cardiovascular: Denies chest pain, Denies chest pain at rest, Denies chest pain with activity and Denies pedal edema Respiratory: Respiratory: Denies cough Gastrointestinal: Gastrointestinal: Denies abdominal pain Musculoskeletal: Musculoskeletal: Denies abnormal gait, Denies muscle cramps and Denies radiating pain into limb Integumentary/Breasts: Skin/Breast: Denies skin ulcer and Denies wounds Neurologic: Reports Normal hearing present and Denies abnormal gait Psychiatric: Psychiatric: Reports no additional psychiatric complaints PMFSH Past Medical History Medical History (Updated 08/19/20 @ 09:42 by Derek Villasenor MD) DVT (deep venous thrombosis) Hidradenitis suppurativa Seizures Family History Family History Father Pancreatic cancer Paternal Grandmother Cancer Surgical History Surgical History H/O colonoscopy H/O gastric bypass H/O hernia repair Social History Social History Household Members: None Housing: Apartment Alcohol intake: former Smoking Status: Current every day smoker Tobacco Type: Cigarette Packs Per Day: 1 Cigarettes Per Day: 15 Second Hand Smoke Exposure: No service: No Meds Allergies Allergy/AdvReac Type Severity Reaction Status Date / Time No Known Allergies Allergy Verified 08/17/20 15:53 [No Known Allergies*] Active Medications: Current Medications Generic Name Dose Route Start Last Admin Trade Name Freq PRN Reason Stop Dose Admin Escitalopram Oxalate 20 mg 08/18/20 09:00 08/19/20 08:44 Escitalopram Oxalate 20 Mg Tablet PO 20 mg DAILY BRIDGET Administration Ferrous Sulfate 324 mg 08/18/20 17:00 08/19/20 08:44 Ferrous Sulfate 324 Mg Tablet.Dr PO 324 mg BIDWM BRIDGET Administration Furosemide 40 mg 08/18/20 09:00 08/19/20 08:43 Furosemide 40 Mg Tablet PO 40 mg DAILY [facility] Administration Protocol Loratadine 10 mg 08/18/20 21:00 08/18/20 20:19 Loratadine 10 Mg Tablet PO 10 mg BEDTIME BRIDGET Administration Nicotine 14 mg 08/18/20 09:00 08/19/20 08:54 Nicotine 14 Mg Patch.Td24 TRANSDERMA 14 mg DAILY [facility] Administration Oxycodone HCl 10 mg 08/18/20 05:42 08/19/20 08:44 Oxycodone Hcl Immed Release 5 Mg Tablet PO 10 mg Q6H PRN Administration Breakthrough Pain Senna 17.2 mg 08/18/20 02:52 Sennosides 8.6 Mg Tablet PO BEDTIME PRN Constipation Sodium Chloride 3 ml 08/18/20 08:00 08/19/20 08:43 0.9 % Sodium Chloride Flush 3 Ml Syringe IVFLUSH 3 ml QSHIFT [facility] Administration Spironolactone 150 mg 08/18/20 09:00 08/19/20 08:45 Spironolactone 25 Mg Tablet PO 150 mg DAILY [facility] Administration Protocol Vitamin B Complex/Folic Acid 1 cap 08/18/20 09:00 08/19/20 08:43 B Complex W-C No.20/Folic Acid Capsule PO 1 cap DAILY [facility] Administration Home Medications Medication Instructions Recorded Confirmed Last Taken Type aspirin 81 mg tablet,delayed 81 mg PO DAILY 08/06/20 08/18/20 08/17/20 History release cyanocobalamin (vitamin B-12) 1,000 mcg PO DAILY 08/06/20 08/18/20 08/17/20 History ergocalciferol (vitamin D2) 1,250 1,250 mcg PO FR@1000 08/06/20 08/18/20 08/17/20 History mcg (50,000 unit) capsule escitalopram oxalate 20 mg tablet 20 mg PO DAILY 08/06/20 08/18/20 08/17/20 History ferrous sulfate 325 mg (65 mg 325 mg PO DAILY tab 08/06/20 08/18/20 08/17/20 History iron) tablet folic acid 1 mg tablet 1 mg PO DAILY 08/06/20 08/18/20 08/17/20 History loratadine 10 mg PO BEDTIME 08/06/20 08/18/20 08/17/20 History minocycline 100 mg PO BID 08/06/20 08/18/20 08/17/20 History multivitamin [Daily-Tomas] 1 tab PO DAILY 08/06/20 08/18/20 08/17/20 History oxycodone 5 mg tablet 10 mg PO Q6H PRN tab 08/06/20 08/18/20 08/17/20 History rivaroxaban 20 mg tablet 20 mg PO QPM 08/06/20 08/18/20 08/17/20 History Physical Exam Vital Signs: Vital Signs: Last Vital Signs Temp 96.9 F 08/19/20 07:02 Pulse 91 08/19/20 08:45 Resp 20 08/19/20 07:02 BP 119/58 L 08/19/20 08:45 Pulse Ox 99 08/19/20 07:02 Body Mass Index 31.7 Const: General: cooperative, healthy appearing and comfortable Orientation/consciousness: oriented to person, oriented to place and oriented to time HENMT: Head: Yes normal to inspection Neck: Neck: Yes normal visual inspection Carotids: no bruits Chest: Chest palpation & inspection: normal inspection of the chest Resp: Effort & Inspection: normal respiratory effort and able to speak in complete sentences Auscultation: clear to auscultation bilaterally, no crackles, no rales, no rhonchi and no wheezes Cardio: Rate: regular rate Rhythm: regular rhythm Heart sounds: S1 normal heart sound present and S2 normal heart sound present Bruits: no carotid bruits Peripheral pulses: Peripheral pulses 2+ throughout GI: Inspection: Yes distended Skin: Wounds: no wounds Hair: normal Neuro: General: oriented to person, oriented to place and oriented to time Cranial nerves: Yes CN's II-XII intact bilaterally and Yes Normal hearing present Cognition (Neuro): normal cognition Motor exam (neuro): 5/5 motor strength present throughout Extrem: Other: venous exam: No significant superficial varicosities or spider telangiectasias, minimal edema General: No clubbing, No cyanosis and No edema Psych: Appearance: grossly normal Mental Status: mental status grossly normal Speech and movement: Normal speech and movement present Results Labs Result diagrams: 08/19/20 05:48 08/18/20 06:19 Labs: Abnormal lab results 08/18/20 08/18/20 08/19/20 Range/Units 06:19 11:49 05:48 Hgb (14.0-18.0) g/dl Hct (42-52) % PT 49.0 H D 21.4 H D (10.8-13.0) SEC INR 4.1 H 1.8 H (0.9-1.1) APTT 43.6 H (24.1-38.0) SEC Vitamin B12 > 2000 H (200-900) pg/mL 08/19/20 Range/Units 05:48 Hgb 7.1 L (14.0-18.0) g/dl Hct 23.1 L (42-52) % PT (10.8-13.0) SEC INR (0.9-1.1) APTT (24.1-38.0) SEC Vitamin B12 (200-900) pg/mL Short CBC 08/19/20 Range/Units 05:48 Hgb 7.1 L (14.0-18.0) g/dl Hct 23.1 L (42-52) % Urine 08/17/20 Range/Units 22:38 Urine Color DARK YELLOW Urine Appearance CLEAR Urine pH 6.0 (5.0-8.0) Ur Specific [place] >= 1.030 H (1.005-1.025) Urine Protein NEG (NEG-TRACE) MG/DL Urine Glucose (UA) NEG (NEG) MG/DL All other labs normal. Assessment and Plan (1) DVT (deep venous thrombosis): Status: Inactive Patient has had a history of DVT almost 2 years prior with trash toe. It appears that he is stable from that perspective. He did have a workup with heme Onc which had no significant findings. Has been maintained on Xarelto with no complications up to this point. Due to his current status I do believe that it is safe to stop his anticoagulation. Most recent ultrasound was negative for DVT. CT scan with IV contrast although not dedicated venous phase does not have evidence of DVT as well. I do believe that it is safe to discontinue anticoagulation. Should issues recur he will require IVC filter placement at that point. Thank you for allowing us to assist in his care. If there are any questions or concerns please do not hesitate to contact us.
[2020-08-19 11:06] LABS: HBc Num1 1.84 S/CO (0.00-0.79)
[2020-08-19 11:07] VITALS: BP 122/59; PULSE 100; RESP 20; TEMP 36.1; O2SAT 99
[2020-08-19 11:23] LABS: HBc Num2 1.38 S/CO; HBc Num3 1.84 S/CO; Hepatitis B Core Antibody Reactive (Nonreactive)
--- NOTE | 2020-08-19 11:40 | PM.DS ---
DS: Providers Provider Date of Service: 08/19/20 Date of admission: 08/18/20 02:52 Primary care physician: Unknown Physician Consults: 08/18/20 02:52 Consult to Gastroenterology Routine Consulting Provider: Ladonna Miller Reason for consultation: Ascites; abd pain 08/18/20 15:53 Consult to Vascular Surgery Routine Consulting Provider: Derek Villasenor Reason for consultation: iliac thrombus on xarelto Has provider been notified: No DS: Diagnosis Discharge Diagnosis (1) DVT (deep venous thrombosis): Status: Inactive DS: Medications Discharge Medications Home Medications: Home Medications Medication Instructions Recorded Confirmed cyanocobalamin (vitamin B-12) 1,000 mcg PO DAILY 08/06/20 08/18/20 ergocalciferol (vitamin D2) 1,250 1,250 mcg PO FR@1000 08/06/20 08/18/20 mcg (50,000 unit) capsule escitalopram oxalate 20 mg tablet 20 mg PO DAILY 08/06/20 08/18/20 folic acid 1 mg tablet 1 mg PO DAILY 08/06/20 08/18/20 loratadine 10 mg PO BEDTIME 08/06/20 08/18/20 minocycline 100 mg PO BID 08/06/20 08/18/20 multivitamin [Daily-Tomas] 1 tab PO DAILY 08/06/20 08/18/20 oxycodone 5 mg tablet 10 mg PO Q6H PRN tab 08/06/20 08/18/20 Previous Rx's Medication Instructions Recorded oxycodone 5 mg PO Q6H PRN #14 tab 08/06/20 ferrous sulfate 325 mg PO BIDWMEAL #0 tab 08/19/20 furosemide [Lasix] 40 mg PO QAM 15 Days #45 tab 08/19/20 oxycodone 5 mg PO Q6H PRN #10 tab 08/19/20 spironolactone 150 mg PO QAM 15 Days #38 tab 08/19/20 DS: Summary Hospital Course Hospital Course: History of presenting illness Chief Complaint: Abdominal discomfort 50-year-old male with a past medical history of liver cirrhosis, ascites, DVT, history of seizures, any Aura, anxiety, depression, asthma presented to the hospital with a chief complaint of abdominal discomfort. Patient mentioned that he has been having abdominal discomfort for the past 4 weeks. Has decreased appetite. Mentions that he had recent paracentesis at [facility]. Mentions he also takes diuretics. Denies any chest pain palpitations. Denies any fever chills cough. Denies any urinary symptoms. Review of all other systems is negative except mentioned above ER course: Per ER team patient noted to have mild diffuse abdominal discomfort, ultrasound showed moderate ascites. Less concern for any SBP. Patient mentating well. Labs essentially benign. Patient afebrile. Noted to have hypokalemia which has been repleted. Admitted to the hospital for further management. Hospital course 50-year-old male with a past medical history of DVT, anemia, anxiety, depression, asthma, history of alcohol abuse, liver cirrhosis with ascites; presented to the hospital with a chief complaint of abdominal discomfort and poor appetite. Abdominal pain/ascites Abdominal discomfort with history of cirrhosis, patient recently discharged from [facility] on August 04 and underwent paracentesis on August 03,3.3 L of fluid was drained, Abdominal pain Likely due to ascites with abdominal distention, mild pancreatitis with recent use of alcohol, CT abdomen and pelvis showed no acute abnormality, it showed cirrhotic liver with moderate ascites and recanalized paraumbilical vein patient was placed on diet and dose of diuretics were adjusted, patient abdominal pain has significantly improved he is tolerating diet, Since patient feels his abdominal distention is better he is being discharged home to have outpatient follow-up with Dr. Miller, initially paracentesis and upper and lower endoscopy was planned to but patient is eager to be discharged home therefore recommended outpatient GI evaluation in next 1-2 weeks, patient has been strongly advised to abstain from alcohol his last drink was 5 weeks ago No evidence of acute encephalopathy with recent normal ammonia level, no confusion. Patient requesting for oxycodone for abdominal pain total 10 tablets of 5 mg oxycodone prescribed question drug-seeking behavior. Anemia with low MCV iron studies consistent with iron deficiency likely slow blood loss due to hemorrhoids, placed patient on iron supplement, patient Xarelto and aspirin has been discontinued Advised patient to follow CBC in 1 week Hypokalemia: Likely due to diuretics,repeat potassium within normal range. History of aorto iliac thrombus; on Xarelto and aspirin, patient evaluated by Dr. Villasenor and he agreed to hold Xarelto and aspirin since recent Doppler study showed no evidence of DVT. Tobacco use disorder smoking cessation advised History of anxiety depression continue Lexapro Time Spent with Patient Time attestation: Total time spent providing and/or coordinating discharge services: Discharge coordination time: Greater than 30 minutes Physical Exam Vital Signs: Vital Signs: Last Vital Signs Temp 97 F 08/19/20 11:07 Pulse 100 08/19/20 11:07 Resp 20 08/19/20 11:07 BP 122/59 L 08/19/20 11:07 Pulse Ox 99 08/19/20 11:07 Body Mass Index 31.7 General patient resting comfortably in no acute distress. Neck is supple no JVD. CVS regular rate rhythm, Respiratory lungs clear to auscultation, no respiratory distress, no wheeze, no rhonchi. Gastrointestinal abdomen distended nontender bowel sounds audible no guarding or rigidity Extremities no edema. Neuro nonfocal , speech clear, no confusion no asterixis. Skin multiple old bruises DS: Data Data Completed and Pending Labs on day of discharge: Laboratory Results - last 24 hr 08/18/20 08/19/20 08/19/20 11:49 05:48 05:48 Hgb 7.1 L Hct 23.1 L PT 49.0 H D 21.4 H D INR 4.1 H 1.8 H APTT 43.6 H Hepatitis A IgG Ab Hep Bs Antigen Hep Bs Antibody Hep B Core Total Ab Hepatitis C Ab (EIA) 08/19/20 08/19/20 05:48 05:48 Hgb Hct PT INR APTT Hepatitis A IgG Ab REACTIVE Hep Bs Antigen Negative Hep Bs Antibody NONREACTIVE Hep B Core Total Ab Reactive Hepatitis C Ab (EIA) Nonreactive Discharge Plan Discharge Patient Disposition: Home, Self-Care Referrals: Physician,Unknown [Primary Care Provider] - Discharge Medications: New oxycodone 5 mg tablet 5 mg PO Q6H PRN (Reason: pain) Qty: 10 RF: 0 Continued multivitamin [Daily-Tomas] Tablet 1 tab PO DAILY RF: 0 minocycline 100 mg capsule 100 mg PO BID RF: 0 cyanocobalamin (vitamin B-12) 1,000 mcg tablet 1,000 mcg PO DAILY RF: 0 loratadine 10 mg tablet 10 mg PO BEDTIME RF: 0 oxycodone 5 mg tablet 5 mg PO Q6H PRN (Reason: pain) Qty: 14 RF: 0 ergocalciferol (vitamin D2) 1,250 mcg (50,000 unit) capsule 1,250 mcg PO FR@1000 RF: 0 escitalopram oxalate 20 mg tablet 20 mg PO DAILY RF: 0 folic acid 1 mg tablet 1 mg PO DAILY RF: 0 oxycodone 5 mg tablet 10 mg PO Q6H PRN (Reason: Pain (Scale Score 4-6)) RF: 0 Changed ferrous sulfate 325 mg (65 mg iron) tablet 325 mg PO BIDWMEAL Qty: 0 RF: 0 furosemide [Lasix] 20 mg tablet 40 mg PO QAM 15 Days Qty: 45 RF: 0 spironolactone 50 mg tablet 150 mg PO QAM 15 Days Qty: 38 RF: 0 Discontinued aspirin 81 mg tablet,delayed release (DR/EC) 81 mg PO DAILY RF: 0 Xarelto 20 mg tablet 20 mg PO QPM RF: 0 Discharge Orders: Discharge Order (Routine); Ordered 08/19/20 Ordered By: Kanchan Garcia Diet: low fat, low cholesterol and low salt diet Activity on Discharge: As tolerated Stand Alone Forms: Patient Portal Discharge page Other Ambulatory Orders: Complete Blood Count no Diff (Routine) Timeframe: 20200824 Facility: [facility] - Location: Laboratory Ordered By: Kanchan Garcia Care Plan Goals: Stop Xarelto and aspirin, complete abstinence from alcohol, Health Concerns: Ascites/anemia/abdominal pain/tobacco use disorder Plan of Treatment: Advised to follow-up with Dr. Miller in 1 week time follow-up with primary care physician in 1 week
--- NOTE | 2020-08-19 11:50 | MHC.CM.PN ---
pt dcd home no skillled servceis ordered by
[2020-08-20 09:27] LABS: Hepatitis B Core Antibody IgM NON-REACTIVE (NON-REACTIVE)
== END 2020-08-19 17:00 | disposition home or self-care (01) | DRG 280 ==
LOC: HO.ED 08-18 03:05 → HO.EDOVER 08-18 05:58 → HO.IMC 08-18 07:12
PROVIDERS: Internal Medicine Gastroenterology; Admitting Provider Hospitalist; Emergency Provider Student in an Organized Health Care Education/Training Program; PCP Internal Medicine; Visit Provider Hospitalist
DX: K70.31 Alcoholic cirrhosis of liver with ascites (principal); F32.9 Major depressive disorder, single episode, unspecified; B19.20 Unspecified viral hepatitis C without hepatic coma; F10.10 Alcohol abuse, uncomplicated; D50.0 Iron deficiency anemia secondary to blood loss (chronic); E87.6 Hypokalemia; F41.9 Anxiety disorder, unspecified; F17.210 Nicotine dependence, cigarettes, uncomplicated; Z71.6 Tobacco abuse counseling; Z86.718 Personal history of other venous thrombosis and embolism; Z79.01 Long term (current) use of anticoagulants; Z98.84 Bariatric surgery status; Z20.822 Contact with and (suspected) exposure to COVID-19; Z79.899 Other long term (current) drug therapy
CPT/HCPCS: 36415; 76705; 80048; 80053; 80076; 81003; 82607; 82728; 82746; 83540; 83690; 85014; 85018; 85025; 85610; 85730; 86704; 86705; 86706; 86708; 86803; 87340; 87635; 93005; 96365; 96375; 99285; J2270

== ENCOUNTER 2020-08-25 13:58 | Outpatient (REF) | payer OTHER, SELFPAY ==
[2020-08-25 15:37] LABS: MANUAL DIFF FLAG NO
[2020-08-25 15:44] LABS: Basophils Percent Auto 0.3 % (0-2); Eosinophils Absolute Auto 0.1 X10*3/uL (0.0-0.4); Eosinophils Percent Auto 0.9 % (0-4); Hematocrit 27.2 % (42-52); Hemoglobin 8.5 g/dl (14.0-18.0); Imm Gran Abs Auto 0.02 X10*3/uL (0.00-0.03); Imm Gran Pct Auto 0.2 % (0.0-0.4); Lymphocytes Absolute Auto 1.9 X10*3/uL (1.2-4.9); Lymphocytes Percent Auto 21.8 % (20-40); Mean Corpuscular HGB Conc 31.3 g/dl (31.0-36.0); Mean Corpuscular Hemoglobin 24.1 pg (27.0-33.0); Mean Corpuscular Volume 77.1 fL (80-98); Mean Platelet Volume 8.6 fL (9.4-12.4); Monocytes Absolute Auto 1.1 X10*3/uL (0.1-1.2); Monocytes Percent Auto 12.2 % (2-11); Neutrophils Absolute Auto 5.7 X10*3/uL (2.0-8.3); Neutrophils Percent Auto 64.6 % (45-73); Platelet Count 283 X10*3/uL (160-400); Red Blood Count 3.53 X10*6/uL (4.60-5.80); Red Cell Distribution Width 19.3 % (11.0-16.0); White Blood Count 8.8 X10*3/uL (4.8-10.8)
[2020-08-25 16:11] LABS: Anion Gap 10 (12-20); Blood Urea Nitrogen 6 mg/dL (9-16); Carbon Dioxide 28 mmol/L (22-29); Chloride 100 mmol/L (96-108); Estimated Glomerular Filt Rate > 60; Glucose Random 104 mg/dL (60-115); Potassium 3.3 mmol/L (3.3-5.1); Sodium 135 mmol/L (135-145)
[2020-08-27 04:38] LABS: ~HepC Num1 0.18 S/CO (0.00-0.79); ~Hepatitis C Antibody Nonreactive (Nonreactive)
[2020-08-28 01:52] LABS: Zinc 26 mcg/dL (60-130)
[2020-08-29 18:36] LABS: HCV Log PCR <1.18 NOT DETECTED Log IU/mL (NOT DETECTED); HepC Viral Load <15 NOT DETECTED IU/mL (NOT DETECTED)
== END 2020-08-25 13:59 | disposition home or self-care (01) ==
LOC: HO.LAB 13:58
PROVIDERS: Hospitalist; PCP Internal Medicine; Visit Provider Internal Medicine Gastroenterology
DX: R10.84 Generalized abdominal pain (principal); K70.31 Alcoholic cirrhosis of liver with ascites; R39.198 Other difficulties with micturition; D50.9 Iron deficiency anemia, unspecified; R15.9 Full incontinence of feces; R74.8 Abnormal levels of other serum enzymes; K64.5 Perianal venous thrombosis; F17.210 Nicotine dependence, cigarettes, uncomplicated; K64.9 Unspecified hemorrhoids; Z79.899 Other long term (current) drug therapy
CPT/HCPCS: 36415; 80048; 84630; 85025; 85027; 86803; 87522

== ENCOUNTER → 2020-09-03 15:09 | Outpatient (BNVA) | payer OTHER, SELFPAY | PROVIDERS: PCP Internal Medicine; Visit Provider Surgery ==

== ENCOUNTER 2020-12-25 07:48 | Outpatient (REF) | payer OTHER, SELFPAY ==
[2020-12-25 11:04] LABS: Hematocrit 27.8 % (42-52); Mean Corpuscular HGB Conc 28.8 g/dl (31.0-36.0); Mean Corpuscular Hemoglobin 23.1 pg (27.0-33.0); Mean Corpuscular Volume 80.1 fL (80-98); Mean Platelet Volume 8.8 fL (9.4-12.4); Platelet Count 239 X10*3/uL (160-400); Red Blood Count 3.47 X10*6/uL (4.60-5.80); Red Cell Distribution Width 20.3 % (11.0-16.0); White Blood Count 4.7 X10*3/uL (4.8-10.8)
== END 2020-12-25 07:49 | disposition home or self-care (01) ==
LOC: HO.LHD 07:48
PROVIDERS: Visit Provider Physician Assistant Medical
DX: D64.9 Anemia, unspecified (principal)
CPT/HCPCS: 36415; 85027

== ENCOUNTER 2021-01-11 14:36 | Outpatient (REF) | payer OTHER, SELFPAY ==
--- NOTE | ~2021-01-11 | XR_ITS ---
EXAMINATION: LEFT FOOT AND LEFT ANKLE. CLINICAL INFORMATION: Pain in left ankle COMPARISON: None TECHNIQUE: 3 views left foot and 2 views left ankle. FINDINGS: Left ankle: There is a nondisplaced lateral malleolar fracture with moderate lateral malleolar soft tissue swelling. The ankle mortise and subtalar joints are normal. A small calcaneal spur. Left foot: There is no visible acute fracture, dislocation or subluxation. No bony abnormality seen. The soft tissues are normal. XR/XR foot LT min 3V IMPRESSION: Nondisplaced fracture lateral malleolus with moderate soft tissue swelling. There is a small calcaneal heel enthesophyte. There is no visible acute fracture or dislocation seen.
--- NOTE | ~2021-01-11 | XR_ITS ---
EXAMINATION: LEFT FOOT AND LEFT ANKLE. CLINICAL INFORMATION: Pain in left ankle COMPARISON: None TECHNIQUE: 3 views left foot and 2 views left ankle. FINDINGS: Left ankle: There is a nondisplaced lateral malleolar fracture with moderate lateral malleolar soft tissue swelling. The ankle mortise and subtalar joints are normal. A small calcaneal spur. Left foot: There is no visible acute fracture, dislocation or subluxation. No bony abnormality seen. The soft tissues are normal. XR/XR ankle LT min 3V IMPRESSION: Nondisplaced fracture lateral malleolus with moderate soft tissue swelling. There is a small calcaneal heel enthesophyte. There is no visible acute fracture or dislocation seen.
[2021-01-11 16:13] LABS: Hematocrit 28.9 % (42-52); Hemoglobin 8.2 g/dl (14.0-18.0); Mean Corpuscular HGB Conc 28.4 g/dl (31.0-36.0); Mean Corpuscular Hemoglobin 22.8 pg (27.0-33.0); Mean Corpuscular Volume 80.3 fL (80-98); Mean Platelet Volume 9.4 fL (9.4-12.4); Platelet Count 236 X10*3/uL (160-400); Red Cell Distribution Width 20.5 % (11.0-16.0); White Blood Count 6.7 X10*3/uL (4.8-10.8)
== END 2021-01-11 14:37 | disposition home or self-care (01) ==
LOC: HO.HMGCX 14:36
PROVIDERS: PCP Internal Medicine; Visit Provider Hospitalist
DX: M25.572 Pain in left ankle and joints of left foot (principal); D50.9 Iron deficiency anemia, unspecified
CPT/HCPCS: 36415; 73610; 73630; 85027

== ENCOUNTER → 2021-01-15 14:24 | Outpatient (BNVA) | payer OTHER, SELFPAY | PROVIDERS: PCP Hospitalist; Visit Provider Physician Assistant ==

== ENCOUNTER 2021-02-12 08:15 | Outpatient (REF) | payer OTHER, SELFPAY ==
--- NOTE | ~2021-02-12 | XR_ITS ---
EXAMINATION: XR ANKLE, LEFT CLINICAL INFORMATION: 50-year-old male patient with ankle pain. COMPARISON: X-ray of the left ankle on 01/11/2021. (Fracture of the lateral malleolus). TECHNIQUE: AP, lateral, and mortise views of the left ankle. FINDINGS: Reexamination shows persistent soft tissue swelling of the lateral malleolus which is improved somewhat since the last exam. There is evidence of some healing involving the nondisplaced fracture of the lateral malleolus. However, the portions of the original fracture line is still visualized. The ankle mortise is maintained. Plantar spur is present arising from the calcaneus. XR/XR ankle LT min 3V IMPRESSION: Healing nondisplaced fracture lateral malleolus.
== END 2021-02-12 08:16 | disposition home or self-care (01) ==
LOC: HO.HOSX 08:15
PROVIDERS: Visit Provider Physician Assistant
DX: S82.832D Other fracture of upper and lower end of left fibula, subsequent encounter for closed fracture with routine healing (principal)
CPT/HCPCS: 73610

== ENCOUNTER 2021-02-19 13:16 | Day surgery (SDC) | payer OTHER, SELFPAY ==
[2021-02-19 13:38] VITALS: BMI 31.6
[2021-02-19 13:45] VITALS: BP 113/64; PULSE 68; RESP 16; TEMP 36.8; O2SAT 99
[2021-02-19] MEDS: Lactated Ringers 1,000 ML 100 ML IVCONT (13:50)
--- NOTE | 2021-02-19 14:16 | MHC.SHP ---
Pre-Procedural Eval Section A Date of Service: 02/19/21 The patient is an INPATIENT: No The History & Physical has been completed within 30 days and I have reviewed it.: No Section B Chief Complaint: Colon cancer screening, anemia Details of Present Illness: Colon cancer screening, anemia, cirrhosis - screen for varices Relevant Family History (Specify if Yes): Yes Relevant Social History: Tobacco Use Present Medications: see Short Stay Collaborative assessment Medical History: Significant History (Ascites due to alcoholic cirrhosis Cirrhosis of liver with ascites DVT (deep venous thrombosis) Hemorrhoids with complication Hidradenitis suppurativa Iron deficiency anemia Seizures) History of Previous Operations: Relevant previous surgery/procedure and date(s) (H/O colonoscopy H/O gastric bypass H/O hernia repair) Allergies: Allergies Allergy/AdvReac Type Severity Reaction Status Date / Time No Known Allergies Allergy Verified 01/15/21 14:46 [No Known Allergies*] Review of Systems Sugical H&P ROS: Negative: Constitution, Cardiovascular and Respiratory and Yes, Specify: Gastrointestinal (chronic diarrhea) Exam Surgical H&P Exam: Normal: Heart, Normal: Lungs and Normal: Extremities and Significant Findings: Abdomen (distended) Plan Diagnosis/Plan: Unchanged I have reviewed the history and physical and performed a pertinent physical examination on my patient. No changes have occurred unless specified.
--- NOTE | 2021-02-19 14:21 | P.CONAN_ITS ---
HPI - Anesthesia Eval Consult details Narrative: 50 yo male patient for EGD, Colonoscopy PMF Active Problems Active Problems: All Active Problems (Updated 01/15/21 @ 14:50 by Christi Roa CMA) Closed fracture of left distal fibula (Acute) Pain in left ankle and joints of left foot (Acute) Hemorrhoids with complication (Acute) Iron deficiency anemia (Acute) Ascites due to alcoholic cirrhosis (Acute) Cirrhosis of liver with ascites (Acute) Zinc deficiency (Acute) Elevated lipase (Acute) Depression (Acute) Generalized abdominal pain (Acute) On xarelto for h/o DVT. Last dose 02/16/21 Past Medical History Medical History Amputated great toe Ascites due to alcoholic cirrhosis Cirrhosis of liver with ascites DVT (deep venous thrombosis) Hemorrhoids with complication Hidradenitis suppurativa Iron deficiency anemia Seizures Family History Family History Father Pancreatic cancer Paternal Grandmother Cancer Family history of problems with anesthesia: No Surgical History Surgical History H/O colonoscopy H/O gastric bypass H/O hernia repair History of Problems with Anesthesia: No Social History Social History (Updated 02/19/21 @ 14:29 by Flores Laughlin MD) Household Members: None Housing: Apartment Do you presently have visiting nurse or other home services: No Alcohol intake: current Alcohol intake frequency: former alcohol drinker Patient Tobacco Use Status: Current everyday Tobacco user Cigarette Packs Per Day: 1 Cigarettes Per Day: 10 Years Smoked: 32 Smoked in Last 30 Days: Yes Patient Interested in Nicotine Replacement: Yes (will f/u with PCP) Second Hand Smoke Exposure: No Use of substances other than those prescribed or required for medical reasons: No Are you DNR?: No Advance Directives: No Advance Directives Information Provided: Yes service: No Meds Allergies Allergy/AdvReac Type Severity Reaction Status Date / Time No Known Allergies Allergy Verified 01/15/21 14:46 [No Known Allergies*] Home Medications Medication Instructions Recorded Confirmed Last Taken Type cyanocobalamin (vitamin B-12) 1,000 mcg PO DAILY 08/06/20 08/25/20 08/17/20 History 1,000 mcg tablet ergocalciferol (vitamin D2) 1,250 1,250 mcg PO FR@1000 08/06/20 08/25/20 0 08/17/20 History mcg (50,000 unit) capsule escitalopram oxalate 20 mg tablet 20 mg PO DAILY 08/06/20 08/25/20 02/16/21 History folic acid 1 mg tablet 1 mg PO DAILY 08/06/20 08/25/20 08/17/20 History loratadine 10 mg tablet 10 mg PO BEDTIME 08/06/20 08/25/20 08/17/20 History minocycline 100 mg capsule 100 mg PO BID 08/06/20 08/25/20 08/17/20 History multivitamin (Daily-Tomas) 1 tab PO DAILY 08/06/20 08/25/20 08/17/20 History gabapentin 100 mg capsule 100 mg PO DAILY 01/15/21 Unknown History lansoprazole 30 mg capsule,delayed 30 mg PO DAILY 01/15/21 Unknown History release (Prevacid) rivaroxaban 2.5 mg tablet (Xarelto) 2.5 mg PO BID 01/15/21 Unknown History spironolactone 50 mg tablet 50 mg PO DAILY 01/15/21 Unknown History Exam Exam Date and Time: February 19, 2021 1421 Height,Weight and Vital Signs: Height 5 ft 11 in Weight 102.965 kg Last Vital Signs Temp 98.2 F 02/19/21 13:45 Pulse 68 02/19/21 13:45 Resp 16 02/19/21 13:45 BP 113/64 02/19/21 13:45 Pulse Ox 99 02/19/21 13:45 Airway Mallampati Class: II TM Dist: >3cm Neck ROM: Full Loose/Missing/Broken Teeth: No Heart: RRR Lungs: CTAB Assessment and Plan Assessment Anesthesia Assessment: Anesthesia Plan Discussed and Chart Reviewed Final Anesthetic Review Family History of Problems with Anesthesia: No History of Problems with Anesthesia: No NPO: Yes ASA Class: III Final Preanesthetic Review: No Changes in Pt Med Stat, Meds/Allgs Chart Reviewed, Consent Obtained/Reviewed and Anes Risks/Benef Reviewed Patient Risk: Intermediate Procedure Risk: Low Assessment/Block/Sedation in SS: Assess/Block/Sedation-SS Anesthetic Plan Anesthetic Plan: MAC: Disposition: Standard PACU
--- NOTE | 2021-02-19 14:31 | PM.OP ---
Brief Operative Note Date of Service: 02/19/21 Pre-op diagnosis: Colon cancer screening, anemia, chronic diarrhea, cirrhosis - screen for varices Post-op diagnosis: other (Gastric Bypass surgery status, Colon polyp, diverticulosis, hemorrhoids) Procedure: FLEXIBLE TRANSORAL UPPER GASTROINTESTINAL ENDOSCOPY WITH BIOPSIES AND COLONOSCOPY TILL CECUM WITH BIOPSIES UPPER ENDOSCOPY Consent: Indications for the procedure and potential complications of bleeding, perforation, reaction to medications and missed diagnosis were discussed with the patient and informed consent was obtained. Instrument: Olympus GIF H 190 mid size upper endoscope Monitoring: Vital signs and clinical assessment, continuous EKG monitoring, Pulse oximetry, Carbon Dioxide monitoring and blood pressure monitoring were done throughout the procedure. Procedure: The patient was placed in the left lateral decubitis position and pre-procedure medications were administered and a bite block was placed. The endoscope was inserted into the mouth and advanced under direct vision to the third part of duodenum. A careful inspection was made as the upper endoscope was withdrawn including a retroflexed examination of the proximal stomach; Findings and interventions are described below. Findings: Larynx: Normal Esophagus: GE junction at 40 cms, small hiatal hernia 40 to 42 cms. No esophagitis or Dang's. Stomach: Pt is status post ilnda en Y gastric Bypass. Normal appearing Gastro-jejunal anastomosis at 45 cms. Jejunum: Normal - biopsies were obtained to check for celiac disease Intervention: Biopsies as noted above COLONOSCOPY PROCEDURE NOTE Consent: Indications for the procedure and potential complications of bleeding, perforation, reaction to medications and missed diagnosis were discussed with the patient and informed consent was obtained. Instrument: Olympus PCF H 190 L variable stiffness pediatric colonoscope Monitoring: Vital signs and clinical assessment, intermittent blood pressure monitoring, continuous EKG monitoring, Pulse oximetry and Carbon Dioxide monitoring were done throughout the procedure. Colon withdrawl time was 20 minutes. Procedure: The patient was placed in the left lateral decubitis position and pre-procedure medications were administered. After a digital rectal examination of the ano-rectum, the video colonoscope was inserted into the rectum and advanced through the colon to the cecum. The colonoscope was slowly withdrawn in a retrograde panoramic fashion and the colon mucosa was carefully examined including a retroflexed view of the rectum. Findings and interventions are described below. Procedure Difficulty: : Without difficulty Findings: Terminal Ileum: Distal 10 - 15 cms examined and appeared normal Cecum: Normal Ascending Colon: Normal Transverse Colon: A 6-7 mm diminutive appearing polyp removed with a cold bx. Descending Colon: Normal Sigmoid Colon: Moderate diverticulosis Rectum: Normal Ano-rectum: Large internal hemorrhoids Colon preparation: Good Impression and Post Procedure Diagnosis: Endoscopy Findings: ESOPHAGUS: Small hiatal hernia STOMACH: Pt is status post linda en Y gastric Bypass. Normal appearing Gastro-jejunal anastomosis at 45 cms. JEJUNUM: Normal - biopsies were obtained to check for celiac disease Colonoscopy Findings: One small polyp removed. Random biopsies were obtained from the colon to check for microscopic colitis. Moderate diverticulosis seen in the sigmoid colon Large hemorrhoids on retroflexed exam. Plan: Await pathology results Patient has an appointment on 03/08/21 in the GI Clinic with Ladonna Miller M.D.. Repeat Colonoscopy interval based on path results - in 5 years if polyps are adenomatous and due to history colon polyps. Above findings were reviewed with the patient and colon polyps and diverticulosis handouts were given in the discharge area Surgeon: Ladonna Miller MD Anesthesia: MAC (Ibeth Braxton CRNA) Was an Electron Beam Photo Mask Technician used for this Procedure?: Yes Electron Beam Photo Mask Technician: Lyly Carranza Estimated blood loss (mL): 0 Pathology: other (A. small bowel biopsies, R/O Sprue B. random colon biopsies, R/O microscopic colitis C. transverse colon polyp) Condition: stable Disposition: PACU
--- NOTE | 2021-02-19 14:32 | P.OP_ITS ---
Operative Note Operative Note Date of Service: 02/19/21 Narrative: Pre-op diagnosis:?Colon cancer screening, anemia, chronic diarrhea, cirrhosis - screen for varices Post-op diagnosis:?other (Gastric Bypass surgery status, Colon polyp, diverticulosis, hemorrhoids) Procedure:? FLEXIBLE TRANSORAL UPPER GASTROINTESTINAL ENDOSCOPY WITH BIOPSIES AND COLONOSCOPY TILL CECUM WITH BIOPSIES UPPER ENDOSCOPY Consent:?Indications for the procedure and potential complications of bleeding, perforation, reaction to medications and missed diagnosis were discussed with the patient and informed consent was obtained. Instrument:?Olympus GIF H 190 mid size upper endoscope Monitoring: Vital signs and clinical assessment, continuous EKG monitoring, Pulse oximetry, Carbon Dioxide monitoring and blood pressure monitoring were done throughout the procedure. Procedure:?The patient was placed in the left lateral decubitis position and pre-procedure medications were administered and a bite block was placed. The endoscope was inserted into the mouth and advanced under direct vision to the third part of duodenum. A careful inspection was made as the upper endoscope was withdrawn including a retroflexed examination of the proximal stomach; Findings and interventions are described below. Findings: Larynx:? Normal Esophagus:?GE junction at 40 cms, small hiatal hernia 40 to 42 cms.? No esophagitis or Dang's. Stomach:?Pt is status post linda en Y gastric Bypass.? Normal appearing Gastro- jejunal anastomosis at 45 cms. Jejunum:?Normal - biopsies were obtained to check for celiac disease Intervention:?Biopsies as noted above COLONOSCOPY PROCEDURE NOTE Consent:?Indications for the procedure and potential complications of bleeding, perforation, reaction to medications and missed diagnosis were discussed with the patient and informed consent was obtained. Instrument:?Olympus PCF H 190 L variable stiffness pediatric colonoscope Monitoring:?Vital signs and clinical assessment, intermittent blood pressure monitoring, continuous EKG monitoring, Pulse oximetry and Carbon Dioxide monitoring were done throughout the procedure. Colon withdrawl time was 20 minutes. Procedure:?The patient was placed in the left lateral decubitis position and pre-procedure medications were administered. After a digital rectal examination of the ano-rectum, the video colonoscope was inserted into the rectum and advanced through the colon to the cecum. The colonoscope was slowly withdrawn in a retrograde panoramic fashion and the colon mucosa was carefully examined including a retroflexed view of the rectum. Findings and interventions are described below. Procedure Difficulty:?: Without difficulty Findings: Terminal Ileum: Distal 10 - 15 cms examined and appeared normal Cecum:? Normal Ascending Colon:??Normal Transverse Colon:??A 6-7 mm diminutive appearing polyp removed with a cold bx. Descending Colon:? Normal Sigmoid Colon:??Moderate diverticulosis Rectum:??Normal Ano-rectum:??Large internal hemorrhoids Colon preparation:? Good? Impression and Post Procedure Diagnosis: Endoscopy Findings: ESOPHAGUS: Small hiatal hernia STOMACH:??Pt is status post linda en Y gastric Bypass.? Normal appearing Gastro-jejunal anastomosis at 45 cms. JEJUNUM: Normal - biopsies were obtained to check for celiac disease Colonoscopy Findings: One small polyp removed. Random biopsies were obtained from the colon to check for microscopic colitis. Moderate diverticulosis seen in the sigmoid colon Large hemorrhoids on retroflexed exam. Plan: Await pathology results Patient has an appointment on 03/08/21 in the GI Clinic with Ladonna Miller M.D.. Repeat Colonoscopy interval based on path results - in 5 years if polyps are adenomatous and due to history colon polyps. Above findings were reviewed with the patient and colon polyps and diverticulosis handouts were given in the discharge area Surgeon:?Ladonna Miller MD Anesthesia:?MAC (Ibeth Braxton CRNA) Was an Boot Repairer used for this Procedure?:?Yes Boot Repairer:?Lyly Carranza Estimated blood loss (mL):?0 Pathology:?other (A. small bowel biopsies, R/O Sprue? B. random colon biopsies, R/O microscopic colitis? C. transverse colon polyp) Condition:?stable Disposition:?PACU
[2021-02-19 15:24] VITALS: BP 106/64; PULSE 74; RESP 14; TEMP 36.1; O2SAT 98
[2021-02-19 15:39] VITALS: BP 115/68; PULSE 66; RESP 18; TEMP 36.1; O2SAT 99
[2021-02-19 16:25] LABS: MANUAL DIFF FLAG NO
[2021-02-19 16:35] LABS: Basophils Percent Auto 0.5 % (0-2); Eosinophils Absolute Auto 0.2 X10*3/uL (0.0-0.4); Eosinophils Percent Auto 3.2 % (0-4); Hematocrit 32.6 % (42-52); Hemoglobin 9.4 g/dl (14.0-18.0); Imm Gran Abs Auto 0.01 X10*3/uL (0.00-0.03); Imm Gran Pct Auto 0.2 % (0.0-0.4); Lymphocytes Absolute Auto 1.7 X10*3/uL (1.2-4.9); Lymphocytes Percent Auto 30.5 % (20-40); Mean Corpuscular HGB Conc 28.8 g/dl (31.0-36.0); Mean Corpuscular Hemoglobin 23.2 pg (27.0-33.0); Mean Corpuscular Volume 80.3 fL (80-98); Mean Platelet Volume 8.9 fL (9.4-12.4); Monocytes Absolute Auto 0.5 X10*3/uL (0.1-1.2); Monocytes Percent Auto 8.1 % (2-11); Neutrophils Absolute Auto 3.2 X10*3/uL (2.0-8.3); Neutrophils Percent Auto 57.5 % (45-73); Platelet Count 241 X10*3/uL (160-400); Red Blood Count 4.06 X10*6/uL (4.60-5.80); Red Cell Distribution Width 18.3 % (11.0-16.0); White Blood Count 5.6 X10*3/uL (4.8-10.8)
[2021-02-19 16:39] LABS: INTERNATIONAL NORM RATIO 1.2 (0.9-1.1); Prothrombin Time 13.1 SEC (9.9-13.0)
[2021-02-19 16:56] LABS: Alanine Aminotransferase 15 U/L (0-40); Albumin Level 3.7 g/dL (3.5-5.0); Alkaline Phosphatase 103 U/L (39-117); Anion Gap 14 (12-20); Aspartate Amino Transferase 45 U/L (5-37); Bilirubin Total 0.7 mg/dL (0.0-1.0); Blood Urea Nitrogen 5 mg/dL (9-16); Calcium 9.1 mg/dL (8.4-10.2); Carbon Dioxide 25 mmol/L (22-29); Chloride 102 mmol/L (96-108); Creatinine Clr Calc Pharmacy 172.4; Estimated Glomerular Filt Rate > 60; Glucose Random 93 mg/dL (60-115); Potassium 4.1 mmol/L (3.3-5.1); Sodium 137 mmol/L (135-145); Total Protein 7.1 g/dL (6.5-8.0)
== END 2021-02-19 16:06 ==
PROVIDERS: PCP Internal Medicine; Visit Provider Internal Medicine Gastroenterology
PROC: (CPT 45380; principal; 2021-02-19 14:30)
DX: Z12.11 Encounter for screening for malignant neoplasm of colon (principal); K63.5 Polyp of colon; K57.30 Diverticulosis of large intestine without perforation or abscess without bleeding; K64.8 Other hemorrhoids; K59.04 Chronic idiopathic constipation; D50.9 Iron deficiency anemia, unspecified; K70.31 Alcoholic cirrhosis of liver with ascites; K44.9 Diaphragmatic hernia without obstruction or gangrene; R56.9 Unspecified convulsions; Z79.899 Other long term (current) drug therapy; Z98.0 Intestinal bypass and anastomosis status; Z98.84 Bariatric surgery status; F17.210 Nicotine dependence, cigarettes, uncomplicated
CPT/HCPCS: 45380; 43239; 36415; 80053; 85025; 85610; 88305; J2250

== ENCOUNTER → 2021-03-08 11:10 | Outpatient (BNVA) | payer OTHER, SELFPAY | PROVIDERS: PCP Internal Medicine; Visit Provider Internal Medicine Gastroenterology ==

== ENCOUNTER 2021-03-12 07:31 | Outpatient (REF) | payer OTHER, SELFPAY | END 2021-03-12 07:32 | disposition home or self-care (01) | LOC: HO.HOSX 07:31 | PROVIDERS: Visit Provider Physician Assistant | DX: Z13.89 Encounter for screening for other disorder (principal) ==

== ENCOUNTER 2021-04-13 08:17 | Outpatient (REF) | payer OTHER, SELFPAY ==
[2021-04-13 08:58] LABS: Hematocrit 39.8 % (42.0-52.0); Hemoglobin 11.7 g/dl (14.0-18.0); Mean Corpuscular HGB Conc 29.4 g/dl (31.0-36.0); Mean Corpuscular Hemoglobin 24.7 pg (27.0-33.0); Mean Platelet Volume 8.8 fL (9.4-12.4); Platelet Count 227 X10*3/uL (160-400); Red Blood Count 4.74 X10*6/uL (4.60-5.80); Red Cell Distribution Width 18.6 % (11.0-16.0)
[2021-04-13 09:17] LABS: Alanine Aminotransferase 18 U/L (0-40); Albumin Level 3.9 g/dL (3.5-5.0); Alkaline Phosphatase 95 U/L (39-117); Aspartate Amino Transferase 35 U/L (5-37); Bilirubin Direct 0.3 mg/dL (0.0-0.5); Bilirubin Total 0.4 mg/dL (0.0-1.0); Estimated Glomerular Filt Rate > 60; Lipase 61 U/L (8-78); Total Protein 7.1 g/dL (6.5-8.0)
== END 2021-04-13 08:18 | disposition home or self-care (01) ==
LOC: HO.LAB 08:17
PROVIDERS: Visit Provider Internal Medicine Gastroenterology
DX: K70.31 Alcoholic cirrhosis of liver with ascites (principal)
CPT/HCPCS: 36415; 80076; 82565; 83690; 85027

== ENCOUNTER 2021-05-04 09:56 | Outpatient (REF) | payer OTHER, SELFPAY ==
--- NOTE | ~2021-05-04 | US_ITS ---
EXAMINATION: US ABDOMEN COMPLETE CLINICAL INFORMATION: Alcoholic cirrhosis of liver with ascites. COMPARISON: Ultrasound abdomen limited dated 08/18/2020. CT abdomen and pelvis with contrast dated 08/06/2020. TECHNIQUE: Real-time imaging of the abdominal viscera. FINDINGS: PANCREAS: Visualized portions unremarkable. Large amount obscured by overlying bowel gas. ABDOMINAL AORTA: The proximal, mid, and distal segments are normal in caliber. INFERIOR VENA CAVA: Visualized portions are normal. LIVER: The liver is mildly enlarged. There is diffusely increased echogenicity consistent with fatty infiltration or hepatocellular disease of other etiology. No focal hepatic lesion. There is no intrahepatic biliary duct dilatation seen. GALLBLADDER: Normal. The gallbladder is physiologically distended without evidence of stones, sludge, polyps, wall thickening or pericholecystic fluid. COMMON BILE DUCT: Normal in caliber measuring 0.3 cm in diameter. RIGHT KIDNEY: Normal. No hydronephrosis. No renal calculi or focal parenchymal lesions. The kidney measures 11.0 cm in maximum dimension. LEFT KIDNEY: Normal. No hydronephrosis. No renal calculi or focal parenchymal lesions. The kidney measures 12.0 cm in maximum dimension. SPLEEN: Enlarged The spleen measures 14 cm in maximum dimension. No significant ascites appreciated. US/US abdomen complete IMPRESSION: Hepatosplenomegaly. Diffusely increased echogenicity of the liver consistent with fatty infiltration or hepatocellular disease of other etiology.
== END 2021-05-04 09:57 | disposition home or self-care (01) ==
LOC: HO.US 09:56
PROVIDERS: PCP Internal Medicine; Visit Provider Internal Medicine Gastroenterology
DX: K70.31 Alcoholic cirrhosis of liver with ascites (principal)
CPT/HCPCS: 76700

== ENCOUNTER 2021-05-12 21:19 | Outpatient (REF) | payer OTHER, SELFPAY ==
[2021-05-12 21:27] LABS: Hematocrit 37.4 % (42.0-52.0); Hemoglobin 11.6 g/dl (14.0-18.0); Mean Corpuscular Hemoglobin 26.2 pg (27.0-33.0); Mean Corpuscular Volume 84.6 fL (80.0-98.0); Mean Platelet Volume 8.7 fL (9.4-12.4); Platelet Count 215 X10*3/uL (160-400); Red Blood Count 4.42 X10*6/uL (4.60-5.80); Red Cell Distribution Width 18.3 % (11.0-16.0); White Blood Count 9.7 X10*3/uL (4.8-10.8)
[2021-05-12 22:10] LABS: Ferritin 24 ng/mL (20-250)
== END 2021-05-12 21:20 | disposition home or self-care (01) ==
LOC: HO.LAB 21:19
PROVIDERS: Visit Provider Internal Medicine Gastroenterology
DX: D50.9 Iron deficiency anemia, unspecified (principal)
CPT/HCPCS: 36415; 82728; 85027

== ENCOUNTER → 2021-06-10 10:47 | Outpatient (BNVA) | payer OTHER, SELFPAY | PROVIDERS: PCP Internal Medicine; Visit Provider Internal Medicine Gastroenterology ==

== ENCOUNTER 2021-10-03 12:22 | Emergency (ER) | payer OTHER, SELFPAY ==
--- NOTE | ~2021-10-03 | XR_ITS ---
EXAMINATION: XR KNEE, LEFT CLINICAL INFORMATION: Swelling and pain COMPARISON: Previous x-ray November 2017 TECHNIQUE: Four views of the left knee. FINDINGS: Bone alignment is normal. No fracture or dislocation is seen. There are mild degenerative changes of the lateral femoral tibial and patellofemoral joints. There is a joint effusion. There is prepatellar soft tissue swelling and soft tissue swelling over the medial upper knee and lower thigh. XR/XR knee LT 4V IMPRESSION: Mild degenerative changes. Joint effusion. Prepatellar soft tissue swelling and soft tissue swelling of the medial upper knee and lower thigh.
[2021-10-03 13:01] VITALS: BP 113/77; PULSE 100; RESP 18; TEMP 37; O2SAT 98; BMI 28.5
--- NOTE | 2021-10-03 13:56 | ED_ITS ---
HPI - Extremity Injury (Lower) General Chief Complaint: Extremity Injury, Lower Stated Complaint: Left Knee Injury Time Seen by Provider: 10/03/21 13:21 Source: patient Mode of arrival: ambulatory Limitations: no limitations History of Present Illness HPI Narrative: 51-year-old male on blood thinner presents to ED for left knee pain after twisting his knee trying to recall fall. Patient states this occurred yesterday. Patient states he was chasing after his dog and while trying to break his fall his knee twisted and hyperflex. Patient denies hitting head on the ground or loss of consciousness. Patient denies body hitting the ground Patient heard a pop in left knee. Patient states overnight his knee increased in size and swelling and bruising. Related Data Home Medications Medication Instructions Recorded Confirmed cyanocobalamin (vitamin B-12) 1,000 mcg PO DAILY 08/06/20 06/10/21 1,000 mcg tablet ergocalciferol (vitamin D2) 1,250 1,250 mcg PO FR@1000 08/06/20 06/10/21 mcg (50,000 unit) capsule escitalopram oxalate 20 mg tablet 20 mg PO DAILY 08/06/20 06/10/21 folic acid 1 mg tablet 1 mg PO DAILY 08/06/20 06/10/21 loratadine 10 mg tablet 10 mg PO BEDTIME 08/06/20 06/10/21 minocycline 100 mg capsule 100 mg PO BID 08/06/20 06/10/21 multivitamin (Daily-Tomas) 1 tab PO DAILY 08/06/20 06/10/21 gabapentin 100 mg capsule 100 mg PO DAILY 01/15/21 06/10/21 lansoprazole 30 mg capsule,delayed 30 mg PO DAILY 01/15/21 06/10/21 release (Prevacid) rivaroxaban 2.5 mg tablet (Xarelto) 2.5 mg PO BID 01/15/21 06/10/21 spironolactone 50 mg tablet 50 mg PO DAILY 01/15/21 06/10/21 Previous Rx's Medication Instructions Recorded ferrous sulfate 325 mg (65 mg 325 mg PO BIDWMEAL #0 tab 08/19/20 iron) tablet oxycodone-acetaminophen 10 mg-325 1 tab PO Q6H PRN #20 tab 01/11/21 mg tablet (Percocet) zinc 50 mg tablet 50 mg PO .COMPLEX 60 Days #30 tab 01/27/21 ibuprofen 800 mg tablet 800 mg PO Q8H PRN #84 tab 03/03/21 furosemide 20 mg tablet 40 mg PO QAM #180 tab 08/31/21 spironolactone 50 mg tablet 150 mg PO DAILY #270 tab 08/31/21 acetaminophen 325 mg capsule 325 mg PO QID PRN 7 Days #28 cap 10/03/21 (Tylenol) oxycodone 5 mg capsule 5 mg PO TID PRN 3 Days #9 cap 10/03/21 prednisone 20 mg tablet 60 mg PO DAILY 5 Days #15 tab 10/03/21 Allergies Allergy/AdvReac Type Severity Reaction Status Date / Time No Known Allergies Allergy Verified 06/10/21 11:02 [No Known Allergies*] Review of Systems Review of Systems: Left knee pain due to twisting knee return to break fall per. Knee hyperflexed Yes all other systems are reviewed and are negative PMFSH Past Medical History Medical History Amputated great toe Ascites due to alcoholic cirrhosis Cirrhosis of liver with ascites DVT (deep venous thrombosis) Hemorrhoids with complication Hidradenitis suppurativa Iron deficiency anemia Seizures Surgical History H/O colonoscopy H/O gastric bypass H/O hernia repair Family History Family History Father Pancreatic cancer Paternal Grandmother Cancer Social History Social History Household Members: None Housing: Apartment Do you presently have visiting nurse or other home services: No Alcohol intake: current Alcohol intake frequency: former alcohol drinker Patient Tobacco Use Status: Current everyday Tobacco user Cigarette Packs Per Day: 1 Cigarettes Per Day: 10 Years Smoked: 32 Second Hand Smoke Exposure: No Advance Directives: No Advance Directives Information Provided: No service: No Physical Exam Vital Signs: Vital Signs: Last Vital Signs Temp 98.6 F 10/03/21 13:01 Pulse 100 10/03/21 13:01 Resp 18 10/03/21 15:13 BP 113/77 10/03/21 13:01 Pulse Ox 98 10/03/21 13:01 BMI result Body Mass Index 28.5 Const: General: cooperative, healthy appearing, comfortable, no acute distress, well developed, alert and awake HEENT: Head: Yes normal to inspection, Yes No palpable skull fracture present, Yes normocephalic, Yes atraumatic, No abrasion, No Murray's sign, No contusion, No cranial bruits, No hematoma, No laceration, No occipital foramen tenderness, No palpable skull fracture, No raccoon eyes, No scalp lesion, No scalp tenderness, No Temporal artery tenderness present and No periorbital ecchymosis Ears: hearing grossly normal bilaterally, external ears normal, TM's normal bilaterally, TM normal on the right, EAC's normal, mastoids normal and no periauricular adenopathy Eyes: General: appearance normal, both eyes and all related structures Neck: Neck: Yes normal visual inspection, Yes full ROM, Yes no lymphadenopathy, Yes no meningeal signs, Yes trachea midline, Yes supple, No anterior neck swelling and No tender Chest: Chest palpation & inspection: normal inspection of the chest and normal palpation of entire chest wall Resp: Effort & Inspection: normal respiratory effort and able to speak in complete sentences Auscultation: clear to auscultation bilaterally Cardio: Jugular venous distension: no JVD Heart sounds: S1 normal heart sound present and S2 normal heart sound present GI: Inspection: Yes normal to inspection and No abdominal wall ecchymosis Palpation (GI): Soft to palpation, not firm, nontender, no guarding and not rigid : General: No CVA tenderness and Yes no CVA tenderness Back/Spine/Pelvis: Back: no CVA tenderness, No CVA tenderness and No back tenderness Skin: Other: Left knee ecchymosis General skin exam: no rashes or lesions noted and elasticity normal Neuro: General: no meningeal signs Extrem: Other: Left lower extremity vascular and neuro exam intact. Lower extremity motor exam limited due to knee swelling/ecchymosis. Not warm or erythematous to indicate septic joint Psych: Appearance: grossly normal, well kempt and not disheveled Course Course Course Narrative: Knee x-ray ordered. Reevaluation(s) Reevaluation #1: X-ray negative for any dislocation or fracture of the knee. Positive for joint effusion most likely patient has meniscus/ligament tear from hyperflexion due to twisting knee to prevent mechanical fall. Discussed case with attending Dr. Elmhogy does not recommend arthrocentesis of knee. Patient is on blood thinner and knee is very swollen can cause injury to vascular vessels. Recommends conservative treatment such as Tanner wrap, pain medication, ice and elevation. Informed to follow-up with orthopedic. Conservative treatment such as Tanner wrap, pain medication, ice and elevation was informed to patient. Patient given days off Time: 14:12 MDM - Extremity Injury (Lower) MDM Narrative Medical decision making narrative: Knee sprain. Knee joint effusion. Most likely ligamentous/meniscus tear Discharge Plan Discharge Clinical Impression: Knee sprain, Joint effusion of knee, Hematoma, Contusion Patient Disposition: Home, Self-Care Additional Instructions: Your x-ray came back normal but shows joint effusion most likely have a meniscus/ligament tear. You need to follow-up with orthopedic surgeon before returning to work. Recommend elevation, rest, Tanner wrap( can be removed every two hours), and ice. Return to the ED for worsening swelling, stiffness of lower extremity, calf pain, chest pain, shortness of breath, bluish black discoloration of toes, or any other concerning symptoms Prescriptions: New prednisone 20 mg tablet 60 mg PO DAILY 5 Days Qty: 15 0RF oxycodone 5 mg capsule 5 mg PO TID PRN (Reason: pain) 3 Days Qty: 9 0RF acetaminophen [Tylenol] 325 mg capsule 325 mg PO QID PRN (Reason: pain) 7 Days Qty: 28 0RF No Action zinc 50 mg tablet 50 mg PO .COMPLEX 60 Days Qty: 30 3RF Rx Instructions: 50 mg PO three times a week; ibuprofen 800 mg tablet 800 mg PO Q8H PRN (Reason: for pain) Qty: 84 0RF spironolactone 50 mg tablet 150 mg PO DAILY Qty: 270 0RF furosemide 20 mg tablet 40 mg PO QAM Qty: 180 0RF multivitamin [Daily-Tomas] Tablet 1 tab PO DAILY 0RF minocycline 100 mg capsule 100 mg PO BID 0RF cyanocobalamin (vitamin B-12) 1,000 mcg tablet 1,000 mcg PO DAILY 0RF loratadine 10 mg tablet 10 mg PO BEDTIME 0RF ferrous sulfate 325 mg (65 mg iron) tablet 325 mg PO BIDWMEAL Qty: 0 0RF oxycodone-acetaminophen [Percocet] 10-325 mg tablet 1 tab PO Q6H PRN (Reason: pain) Qty: 20 0RF ergocalciferol (vitamin D2) 1,250 mcg (50,000 unit) capsule 1,250 mcg PO FR@1000 0RF escitalopram oxalate 20 mg tablet 20 mg PO DAILY 0RF folic acid 1 mg tablet 1 mg PO DAILY 0RF lansoprazole [Prevacid] 30 mg capsule,delayed release(DR/EC) 30 mg PO DAILY 0RF spironolactone 50 mg tablet 50 mg PO DAILY 0RF gabapentin 100 mg capsule 100 mg PO DAILY 0RF Xarelto 2.5 mg tablet 2.5 mg PO BID 0RF Referrals: Cayden Henderson MD [Physician] - (Knee sprain most likely ligament/meniscus tear. Joint effusion.) Stand Alone Forms: Work/School Release Interventions: ED Discharge Assessment Last Done: 10/03/21 15:14 Discharge Date/Time: 10/03/21 15:14 Print Language: Croatian
[2021-10-03] MEDS: predniSONE 20 MG TABLET 60 MG PO (14:02)
[2021-10-03] MEDS: oxyCODONE HCl Immed Release 5 MG TABLET PO (14:02)
[2021-10-03 15:13] VITALS: RESP 18
== END 2021-10-03 15:14 | disposition home or self-care (01) ==
PROVIDERS: Emergency Provider Emergency Medicine; PCP Internal Medicine
DX: S83.92XA Sprain of unspecified site of left knee, initial encounter (principal); S80.02XA Contusion of left knee, initial encounter; M25.462 Effusion, left knee; Z86.718 Personal history of other venous thrombosis and embolism; Z79.01 Long term (current) use of anticoagulants; X50.1XXA Overexertion from prolonged static or awkward postures, initial encounter; Y93.02 Activity, running; Y92.410 Unspecified street and highway as the place of occurrence of the external cause; Y99.9 Unspecified external cause status
CPT/HCPCS: 73564; 99283

== ENCOUNTER → 2021-10-07 09:10 | Outpatient (BNVA) | payer OTHER, SELFPAY | PROVIDERS: PCP Internal Medicine; Visit Provider Physician Assistant | DX: Z13.89 Encounter for screening for other disorder (principal) ==

== ENCOUNTER → 2022-03-10 13:16 | Outpatient (RCR) | payer OTHER, SELFPAY ==
[2020-06-03 10:00] LABS: SARS-COV-2 PCR UMBRL NOT DETECTED
[2020-06-06 14:33] LABS: SARS-COV-2 PCR UMBRL NEGATIVE
[2020-06-12 12:26] LABS: COVID-19 Test Negative (Negative); IDNOW Serial# 55D5AD1C
[2020-06-15 14:50] LABS: SARS-COV-2 PCR UMBRL NEGATIVE
[2020-06-20 12:30] LABS: SARS-COV-2 PCR UMBRL NEGATIVE
[2020-06-27 13:50] LABS: SARS-COV-2 PCR UMBRL NEGATIVE
[2020-07-11 12:02] LABS: SARS-COV-2 PCR UMBRL NEGATIVE
== END | disposition home or self-care (01) ==
LOC: HO.EMPCOV 05-29 07:04
PROVIDERS: Visit Provider Internal Medicine
DX: Z20.828 Contact with and (suspected) exposure to other viral communicable diseases (principal)
CPT/HCPCS: 36415; 87635; C9803; U0003

== ENCOUNTER 2022-03-25 16:44 | Outpatient (REF) | payer OTHER, SELFPAY ==
[2022-03-25 18:49] LABS: MANUAL DIFF FLAG NO
[2022-03-25 18:56] LABS: Basophils Percent Auto 0.4 % (0-2); Eosinophils Absolute Auto 0.2 X10*3/uL (0.0-0.4); Eosinophils Percent Auto 2.6 % (0-4); Hematocrit 41.9 % (42.0-52.0); Hemoglobin 14.2 g/dl (14.0-18.0); Imm Gran Abs Auto 0.02 X10*3/uL (0.00-0.03); Imm Gran Pct Auto 0.3 % (0.0-0.4); Lymphocytes Absolute Auto 1.6 X10*3/uL (1.2-4.9); Lymphocytes Percent Auto 21.6 % (20-40); Mean Corpuscular HGB Conc 33.9 g/dl (31.0-36.0); Mean Corpuscular Hemoglobin 31.1 pg (27.0-33.0); Mean Corpuscular Volume 91.7 fL (80.0-98.0); Mean Platelet Volume 9.3 fL (9.4-12.4); Monocytes Absolute Auto 0.8 X10*3/uL (0.1-1.2); Monocytes Percent Auto 10.2 % (2-11); Neutrophils Absolute Auto 4.9 x10*3/uL (2.0-8.3); Neutrophils Percent Auto 64.9 % (45-73); Platelet Count 255 X10*3/uL (160-400); Red Blood Count 4.57 X10*6/uL (4.60-5.80); Red Cell Distribution Width 13.2 % (11.0-16.0); White Blood Count 7.6 X10*3/uL (4.8-10.8)
[2022-03-25 19:10] LABS: Anion Gap 18 (12-20); Blood Urea Nitrogen 6 mg/dL (9-16); Calcium 9.3 mg/dL (8.4-10.2); Carbon Dioxide 27 mmol/L (22-29); Chloride 94 mmol/L (96-108); Estimated Glomerular Filt Rate > 60; Glucose Random 100 mg/dL (60-115); Potassium 4.1 mmol/L (3.3-5.1); Sodium 135 mmol/L (135-145)
[2022-03-25 19:11] LABS: Alanine Aminotransferase 22 U/L (0-40); Albumin Level 4.4 g/dL (3.5-5.0); Alkaline Phosphatase 107 U/L (39-117); Anion Gap 18 (12-20); Aspartate Amino Transferase 56 U/L (5-37); Bilirubin Total 0.6 mg/dL (0.0-1.0); Blood Urea Nitrogen 7 mg/dL (9-16); Calcium 9.3 mg/dL (8.4-10.2); Carbon Dioxide 28 mmol/L (22-29); Chloride 94 mmol/L (96-108); Estimated Glomerular Filt Rate > 60; Glucose Random 97 mg/dL (60-115); Iron 59 mcg/dL (45-160); Percent Iron Saturation 16 % (15-50); Potassium 3.9 mmol/L (3.3-5.1); Sodium 136 mmol/L (135-145); Total Iron Binding Capacity 359 mcg/dL (228-428); Total Protein 7.5 g/dL (6.5-8.0); Unsaturated Iron Binding 300 ug/dL
[2022-03-25 19:32] LABS: Ferritin 94 ng/mL (20-250); Vitamin D 25-OH Total 31.8 ng/mL (>30)
[2022-03-25 19:33] LABS: Ferritin 84 ng/mL (20-250); Vitamin D 25-OH Total 31.3 ng/mL (>30)
[2022-03-25 19:44] LABS: Folate 5.1 ng/mL (> or = 4.0); Vitamin B12 1323 pg/mL (200-900)
[2022-03-28 14:36] LABS: Immunoglobulin A 294 mg/dL (47-310)
[2022-03-28 23:02] LABS: Transglutaminase IgA <1.0 U/mL
[2022-03-30 06:22] LABS: Zinc 63 mcg/dL (60-130)
[2022-03-31 12:41] LABS: Testosterone, Total 393 ng/dL (250-1100)
== END 2022-03-25 16:45 | disposition home or self-care (01) ==
LOC: HO.MANLDS 16:44
PROVIDERS: Internal Medicine Gastroenterology; Visit Provider Internal Medicine
DX: D64.9 Anemia, unspecified (principal); K70.31 Alcoholic cirrhosis of liver with ascites; R53.83 Other fatigue
CPT/HCPCS: 36415; 80048; 80053; 82306; 82607; 82728; 82746; 82784; 83540; 84403; 84630; 85025; 86364

== ENCOUNTER 2022-06-23 09:09 | Outpatient (REF) | payer OTHER, SELFPAY ==
--- NOTE | ~2022-06-23 | US_ITS ---
EXAMINATION: US ABDOMEN COMPLETE CLINICAL INFORMATION: Abnormal level of enzymes. COMPARISON: Ultrasound abdomen complete 05/04/2021. TECHNIQUE: Real-time imaging of the abdominal viscera. FINDINGS: PANCREAS: Obscured by bowel gas. ABDOMINAL AORTA: Visualized aorta is normal in caliber however portions are obscured by bowel gas. INFERIOR VENA CAVA: Visualized portions are normal. LIVER: Liver is enlarged measuring 19.1 cm in span. The liver contour is normal. There is diffuse increased liver parenchymal echogenicity, consistent with infiltrative hepatocellular disease. No focal hepatic lesion. There is no intrahepatic biliary duct dilatation seen. GALLBLADDER: No sonographic Tejeda's tenderness. The gallbladder is physiologically distended without evidence of stones, sludge, polyps, or pericholecystic fluid. COMMON BILE DUCT: Normal in caliber measuring 0.3 cm in diameter. RIGHT KIDNEY: Normal. No hydronephrosis. No renal calculi or focal parenchymal lesions. The kidney measures 11.5 cm in maximum dimension. LEFT KIDNEY: Normal. No hydronephrosis. No renal calculi or focal parenchymal lesions. The kidney measures 10.6 cm in maximum dimension. SPLEEN: Normal. The spleen measures 11.5 cm in maximum dimension. FREE FLUID: None. US/US abdomen complete IMPRESSION: Hepatomegaly. Increased hepatic echogenicity which can be seen in the setting of hepatic steatosis or underlying liver disease. Portions of the abdomen were obscured by bowel gas limiting evaluation.
[2022-06-23 10:45] LABS: MANUAL DIFF FLAG NO
[2022-06-23 11:07] LABS: Basophils Percent Auto 0.5 % (0-2); Eosinophils Absolute Auto 0.1 X10*3/uL (0.0-0.4); Eosinophils Percent Auto 2.6 % (0-4); Hematocrit 40.6 % (42.0-52.0); Hemoglobin 13.7 g/dl (14.0-18.0); Imm Gran Abs Auto 0.02 X10*3/uL (0.00-0.03); Imm Gran Pct Auto 0.4 % (0.0-0.4); Lymphocytes Absolute Auto 1.1 X10*3/uL (1.2-4.9); Lymphocytes Percent Auto 19.7 % (20-40); Mean Corpuscular HGB Conc 33.7 g/dl (31.0-36.0); Mean Platelet Volume 8.3 fL (9.4-12.4); Monocytes Absolute Auto 0.6 X10*3/uL (0.1-1.2); Monocytes Percent Auto 10.9 % (2-11); Neutrophils Absolute Auto 3.6 x10*3/uL (2.0-8.3); Neutrophils Percent Auto 65.9 % (45-73); Platelet Count 251 X10*3/uL (160-400); Red Blood Count 4.56 X10*6/uL (4.60-5.80); Red Cell Distribution Width 12.9 % (11.0-16.0); White Blood Count 5.5 X10*3/uL (4.8-10.8)
[2022-06-23 11:19] LABS: Alanine Aminotransferase 20 U/L (0-40); Albumin Level 4.3 g/dL (3.5-5.0); Alkaline Phosphatase 111 U/L (39-117); Anion Gap 13 (12-20); Aspartate Amino Transferase 53 U/L (5-37); Blood Urea Nitrogen 4 mg/dL (9-16); Carbon Dioxide 25 mmol/L (22-29); Chloride 101 mmol/L (96-108); Estimated Glomerular Filt Rate > 60; Glucose Random 99 mg/dL (60-115); Iron 118 mcg/dL (45-160); Percent Iron Saturation 31 % (15-50); Potassium 4.2 mmol/L (3.3-5.1); Sodium 135 mmol/L (135-145); Total Iron Binding Capacity 383 mcg/dL (228-428); Total Protein 7.4 g/dL (6.5-8.0); Unsaturated Iron Binding 265 ug/dL
[2022-06-23 11:47] LABS: Ferritin 46 ng/mL (20-250); Folate 10.5 ng/mL (> or = 4.0); Vitamin B12 1865 pg/mL (200-900); Vitamin D 25-OH Total 32.5 ng/mL (>30)
[2022-07-02 14:49] LABS: Testosterone, Total 346 ng/dL (250-1100)
== END 2022-06-23 09:10 | disposition home or self-care (01) ==
LOC: HO.US 09:09
PROVIDERS: Internal Medicine Gastroenterology; PCP Internal Medicine; Visit Provider Internal Medicine
DX: R85.0 Abnormal level of enzymes in specimens from digestive organs and abdominal cavity (principal); F52.21 Male erectile disorder; D64.9 Anemia, unspecified; R53.83 Other fatigue
CPT/HCPCS: 36415; 76700; 80053; 82306; 82565; 82607; 82728; 82746; 83540; 84402; 84403; 85025

== ENCOUNTER 2023-05-05 08:04 | Outpatient (AMB) | payer OTHER, SELFPAY ==
--- NOTE | 2023-05-05 08:06 | A.OFFVIS_ITS ---
Intake Vital Signs 05/05/23 08:07 Height 5 ft 11 in Weight 201 lb 0.985 oz BMI 28.0 BP 116/57 L Blood Pressure Location Rt brachial Position Sitting Pulse 77 Pulse Source Pulse Oximeter Intake Visit Reasons: Anemia Intake Note: Pt presents to the office today for anemia. Pt states he is feeling great and denies any concerns at this time. Allergies No Known Allergies [No Known Allergies*] Allergy (Verified 05/05/23 08:09) Medication List - Last Reconciled 05/05/23 by Ladonna Miller MD acetaminophen (Tylenol) 325 mg PO QID PRN 7 days bupropion HCl 300 mg PO QAM cyanocobalamin (vitamin B-12) 1,000 mcg PO DAILY ergocalciferol (vitamin D2) 1,250 mcg PO FR@1000 ferrous sulfate 325 mg PO BIDWMEAL folic acid 1 mg PO DAILY furosemide 40 mg (2 x 20 mg) PO QAM 30 days ibuprofen 800 mg PO Q8H PRN multivitamin (Daily-Tomas tablet) 1 tab PO DAILY rivaroxaban (Xarelto) 20 mg PO QPM spironolactone 150 mg (3 x 50 mg) PO DAILY 90 days zinc gluconate 50 mg PO 3XW 70 days HPI Anemia HPI Details GI Clinic visit for this 52 Y M for fu of cirrhosis related to ETOH abuse and chronic hepatitis-C Pt returns after a hiatus of 2 years IMAGING STUDIES:? 08/06/[address] SCAN SHOWED: No acute findings within the abdomen or pelvis to explain the patient's symptomatology. Morphologically cirrhotic liver with small moderate ascites and recanalized paraumbilical vein. ABD CT SCAN AT [facility] SHOWED: The liver is normal in size but demonstrates mildly decreased attenuation and a mildly nodular contour. The gallbladder is physiologically distended without definitive gallstones. The pancreas, spleen and adrenal glands are unremarkable. Symmetrically enhancing kidneys without hydronephrosis. Surgical changes of the GE junction and stomach consistent with gastric bypass. Normal caliber loops of small and large bowel. There is mucosal fatty infiltration involving the ascending colon and rectum, nonspecific. Small to moderate amount of abdominal and pelvic ascites. Nonaneurysmal abdominal aorta. Recannulized umbilical vein. The bladder is normal in appearance. The prostate gland is not enlarged. No gross inguinal lymphadenopathy. Mild degenerative changes of the spine. IMPRESSION: Cirrhotic appearance of the liver with mild to moderate ascites and a recanalized umbilical vein. ENDOSCOPIC STUDIES:? 02/19/21 EGD AND COLONOSCOPY SHOWED: ESOPHAGUS: Small hiatal hernia STOMACH:??Pt is status post linda en Y gastric Bypass.? Normal appearing Gastro- jejunal anastomosis at 45 cms. JEJUNUM: Normal - biopsies were obtained to check for celiac disease Colonoscopy Findings: One small hyperplastic polyp removed. Random biopsies were obtained from the colon to check for microscopic colitis. Moderate diverticulosis seen in the sigmoid colon Large hemorrhoids on retroflexed exam. Plan:? Patient has an appointment on 03/08/21 in the GI Clinic with Ladonna Miller M.D.. Repeat Colonoscopy interval based on path results - in 5 years if polyps are adenomatous and due to history colon polyps. TODAY'S VISIT: Pt presents to the office today for anemia. Pt states he is feeling great and denies any concerns at this time. 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 Denies heartburn, dysphagia Gets bouts of diarrhea and not as bad as in the past. Noticing a lot of muscle cramps - ? due to dehydration and drinking [employer] drinks Suspects he has a left inguinal hernia PAST VISIT: Diagnosed with COVID 10 days ago and tested negative 2 days ago. Continues to have fatigue. Diarrhea is not as bad and he is not eating as much. Gets sick when he eats certain foods - wheat and bread. Patient was discharged from [facility] on 08/04 with similar complaints and CT showing liver cirrhosis with moderate ascites, and patient was admitted to the floor for concern for SBP/paracentesis. During admission patient had an episode of rectal bleeding which was from external hemorrhoids. Patient also had an U.S. guided paracentesis with evacuation of 3300 mL and was initiated on Spironolactone and Lasix upon discharge. Patient's discharge hemoglobin was in was 7.1 Complains of lower abdominal cramps - frequent BMs 4-6 BMs in 24 hrs. Has chronic diarrhea over the past few yrs. Stools were more formed when he was on oxycodone. Has tried taking imodium in the past and advised to resume prn. Hemorrhoids stopped bleeding after he stopped the oral anticoagulants Pt takes Xarelto 20 mg daily Has prolapsing and painful hemorrhoids. Difficult to urinate and has fecal incontinence at the same time. Trying to eat and is afraid that BMs will irritate the hemorrhoids. Complains of abdominal pain,dizziness, some times headaches, can not eat solid food because diarrhea and nauseas, also left leg pain. Continues to have abdominal pain. Feels tired and fatigued, no appetite. Has been trying to drink liquids. Unable to take solids since abdomen gets distended. Hurts more after he eats. Notes abdominal pressure. Has diarrhea with multiple blackish/brown mucousy BMs a day Takes iron once daily. Has lost 8 lbs over the past week. Denies GERD, vomit or constipation. Has chills - freezing all the time and denies fevers. Quit drinking 16 weeks ago [facility] Medical History Amputated great toe Hemorrhoids with complication Iron deficiency anemia Ascites due to alcoholic cirrhosis Hidradenitis suppurativa Seizures Cirrhosis of liver with ascites DVT (deep venous thrombosis) Surgical History H/O hernia repair H/O colonoscopy H/O gastric bypass Family History Father Pancreatic cancer Paternal Grandmother Cancer Social History (Updated 05/05/23 @ 08:12 by Sugar Vallejo MA) Household Members: None Housing: Apartment Do you presently have visiting nurse or other home services: No Alcohol intake: current Alcohol intake frequency: former alcohol drinker Patient Tobacco Use Status: Current everyday Tobacco user Cigarettes Per Day: 10 Years Smoked: 32 Second Hand Smoke Exposure: No service: No Review of Systems Const All systems reviewed & are unremarkable except as noted in HPI and below Physical Exam Vital Signs: BMI result Body Mass Index 28.0 Const General: healthy appearing and no acute distress Nutritional Appearance: overweight Orientation/consciousness: patient oriented x3 Limitations: no limitations HEENT Head: Yes normal to inspection Ears: hearing grossly normal bilaterally Eyes Sclerae: sclerae normal Pupils: Equal, round and reactive pupils present Neck Neck: Yes normal visual inspection Chest Chest palpation & inspection: normal inspection of the chest Resp Effort & Inspection: normal respiratory effort Auscultation: clear to auscultation bilaterally Cardio Palpation: normal PMI Rate: regular rate Rhythm: regular rhythm Heart sounds: S1 normal heart sound present, S2 normal heart sound present and no murmurs GI Palpation (GI): Soft to palpation, nontender and No hepatosplenomegaly present Auscultation: normal bowel sounds Rectal Exam - Male: Yes deferred Skin General skin exam: no rashes or lesions noted Neuro General: patient oriented x3, gait normal and moves all extremities Cranial nerves: Yes Equal, round and reactive pupils present Psych Appearance: grossly normal Mental Status: mental status grossly normal Assessment & Plan Assessment & Plan (1) Colon cancer screening: Code(s): Z12.11 - Encounter for screening for malignant neoplasm of colon (2) Chronic diarrhea: Code(s): K52.9 - Noninfective gastroenteritis and colitis, unspecified (3) Hemorrhoids with complication: Code(s): K64.8 - Other hemorrhoids (4) Iron deficiency anemia: Code(s): D50.9 - Iron deficiency anemia, unspecified (5) Cirrhosis of liver with ascites: Code(s): K74.60 - Unspecified cirrhosis of liver; R18.8 - Other ascites Qualifiers: Hepatic cirrhosis type: alcoholic cirrhosis Qualified Code(s): K70.31 - Alcoholic cirrhosis of liver with ascites (6) Elevated lipase: Code(s): R74.8 - Abnormal levels of other serum enzymes Plan 52 YM with gastric bypass 2008,? 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 intake. Abd exam revealed resolution of ascites. Of note Hepatitis C ab was negative in 12/2017 - and repeat was negative in 07/2020. REDUCING THE RISK OF LIVER PROGRESSION:? patient was advised to completely avoid use of alcohol - pt states he quitted ETOH 5 months ago. HCC SURVEILLANCE:?? the patient is at risk of developing hepatocellular carcinoma given the presence of cirrhosis and needs 6 monthly imaging surveillance with either abdominal ultrasound (US) or multiphase cross-sectional imaging (CT or MRI). SURVEILLANCE FOR GASTROESOPHAGEAL VARICES:?02/19/21 No varices seen on EGD. QUESTION OF LIVER TRANSPLANTATION:?? As pt quitted ETOH 5 months ago, MELD Na score is 8 and Liver Tx is not indicated at this time. 05/05/23 Joined AA, lost some weight and got a new job and living as a recovering alcoholic No ETOH x 5 months I will check labs and Abd US - (pt prefers to have labs and US done at [facility]) FU in 4 months Orders: Orders Complete Blood Count Auto Diff Today K74.60 - Unspecified cirrhosis of liver, R18.8 - Other ascites Vitamin B12 Today K74.60 - Unspecified cirrhosis of liver, R18.8 - Other ascites US abdomen limited Today K74.60 - Unspecified cirrhosis of liver, R18.8 - Other ascites Comprehensive Met. Panel Today K74.60 - Unspecified cirrhosis of liver, R18.8 - Other ascites Prothrombin Time INR Today K74.60 - Unspecified cirrhosis of liver, R18.8 - Other ascites Liver Fibrosis Pnl Today K74.60 - Unspecified cirrhosis of liver, R18.8 - Other ascites Medications: New cholecalciferol (vitamin D3) 250 mcg PO 2XW 90 days 26 caps 1RF E55.9 - Vitamin D deficiency, unspecified Changed From furosemide 40 mg (2 x 20 mg) PO QAM 30 days 60 tabs 0RF To furosemide 20 mg PO QAM 90 days 90 tabs 1RF From spironolactone 150 mg (3 x 50 mg) PO DAILY 90 days 270 tabs 0RF K70.31 - Alcoholic cirrhosis of liver with ascites To spironolactone 100 mg (2 x 50 mg) PO DAILY 90 days 180 tabs 1RF K70.31 - Alcoholic cirrhosis of liver with ascites Coding Level of Care Code Est Pt Level 4 (23065) Diagnoses Colon cancer screening Z12.11 Chronic diarrhea K52.9 Hemorrhoids with complication K64.8 Iron deficiency anemia D50.9 Cirrhosis of liver with ascites K70.31 Hepatic cirrhosis type: alcoholic cirrhosis Elevated lipase R74.8 Time Spent (min) 21
[2023-05-05 08:07] VITALS: BP 116/57; PULSE 77; BMI 28.0
== END 2023-05-05 09:09 | disposition home or self-care (01) ==
PROVIDERS: PCP Internal Medicine; Visit Provider Internal Medicine Gastroenterology
DX: Z12.11 Encounter for screening for malignant neoplasm of colon (principal); K52.9 Noninfective gastroenteritis and colitis, unspecified; K64.8 Other hemorrhoids; D50.9 Iron deficiency anemia, unspecified; K70.31 Alcoholic cirrhosis of liver with ascites; R74.8 Abnormal levels of other serum enzymes; Z01.818 Encounter for other preprocedural examination
CPT/HCPCS: 99214

== ENCOUNTER → 2023-05-05 08:04 | Outpatient (BNVA) | payer OTHER, SELFPAY | PROVIDERS: PCP Internal Medicine; Visit Provider Internal Medicine Gastroenterology | DX: Z12.11 Encounter for screening for malignant neoplasm of colon (principal); D50.9 Iron deficiency anemia, unspecified; K52.9 Noninfective gastroenteritis and colitis, unspecified; K70.31 Alcoholic cirrhosis of liver with ascites; K64.8 Other hemorrhoids; R74.8 Abnormal levels of other serum enzymes | CPT/HCPCS: 99212 ==

== ENCOUNTER 2024-08-08 07:57 | Outpatient (AMB) | payer BC, SELFPAY ==
--- OUTSIDE RECORDS SUMMARY | 2024-08-08 08:01 | XMS_ITS | Data Portability ---
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) [facility] MODERATE MUST MEET 2 OUT OF 3 ELEMENTS: PROBLEMS, DATA OR RISK ELEMENT 1: PROBLEMS ADDRESSED 1 OR MORE CHRONIC ILLNESS WITH EXACERBATION OR 2 OR MORE STABLE CHRONIC ILLNESSES OR 1 UNDIAGNOSED NEW PROBLEM OR 1 ACUTE ILLNESS W/SYMPTOMS OR 1 ACUTE COMPLICATED INJURY ELEMENT 2: DATA MUST MEET 1 OF 3 CATEGORIES CATEGORY 1: REVIEW OF PRIOR EXTERNAL NOTES, REVIEW OF RESULTS, ORDERING OF EACH TEST, ASSESSMENT REQUIRING INDEPENDENT HISTORIAN OR CATEGORY 2: INDEPENDENT INTERPRETATION OF TESTS BY ANOTHER PHYSICIAN OR SPECIALIST OR CATEGORY 3: DISCUSSION OF MGT OR TEST INTERPRETATION W/EXTERNAL PHYSICIAN OR SPECIALIST ELEMENT 3: RISK RISK OF COMPLICATIONS AND/OR MORBIDITY OR MORTALITY OF PATIENT MANAGEMENT PROVIDER MUST THOROUGHLY DOCUMENT EACH ELEMENT THAT IS COVERED Not available 03/25/2022 16:24:54 04/12/2022 04/12/2022 [id number] [place] [id number] (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) [facility] MODERATE MUST MEET 2 OUT OF 3 ELEMENTS: PROBLEMS, DATA OR RISK ELEMENT 1: PROBLEMS ADDRESSED 1 OR MORE CHRONIC ILLNESS WITH EXACERBATION OR 2 OR MORE STABLE CHRONIC ILLNESSES OR 1 UNDIAGNOSED NEW PROBLEM OR 1 ACUTE ILLNESS W/SYMPTOMS OR 1 ACUTE COMPLICATED INJURY ELEMENT 2: DATA MUST MEET 1 OF 3 CATEGORIES CATEGORY 1: REVIEW OF PRIOR EXTERNAL NOTES, REVIEW OF RESULTS, ORDERING OF EACH TEST, ASSESSMENT REQUIRING INDEPENDENT HISTORIAN OR CATEGORY 2: INDEPENDENT INTERPRETATION OF TESTS BY ANOTHER PHYSICIAN OR SPECIALIST OR CATEGORY 3: DISCUSSION OF MGT OR TEST INTERPRETATION W/EXTERNAL PHYSICIAN OR SPECIALIST ELEMENT 3: RISK RISK OF COMPLICATIONS AND/OR MORBIDITY OR MORTALITY OF PATIENT MANAGEMENT PROVIDER MUST THOROUGHLY DOCUMENT EACH ELEMENT THAT IS COVERED Not available 04/12/2022 16:56:16 Plan of Treatment Reminders Order Date Submit Date Provider Last Modified By Organization Details Last Modified Time Details Appointments None recorded. Lab testostero ne, free + total, serum 2021 [facility], [address] [place] [address], [id number], 3 11:28:33 CBC w/ auto diff 2021 [facility], [address] [place] [address], [address], 11:28:35 iron + TIBC + ferritin, serum 2021 [facility], [address] [place] [address], [address], 12:05:45 vitamin B12 + folate, serum or blood 2021 [facility], [address] [place] [address], [address], 12:05:45 ferritin, serum or plasma 2021 [facility], [address] [place] [address], [address], 16:40:31 CMP, serum or plasma 2021 [facility], [address] [place] [address], [address], 12:05:45 testostero ne, total, serum 2021 [facility], [address] [place] [address], [address], 11:14:38 vitamin D, 25-hydroxy , total, serum 2021 [facility], [address] [place] [address], [place], [address], 16:40:30 Referral urologist referral 2021 SAMANTHA Jara, [address] [place], [address], 12:45:22 blasting entry specialist & 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 Surgeries None recorded. Imaging US, abdomen, complete - attn liver and pancreas with elevated enzyme levels 2021 [facility], [address] [place] [address], [address], 11:39:44 Medication Orders None recorded. Patient TargetsNo targets recorded. Patient Instructions Encounter Date Encounter Id Patient Instructions Last Modified By Organization Details Last Modified Time 03/25/2022 [id number] anemia: care instructions Not available 03/25/2022 16:35:01 Reason for Referral Car Tester & Three Dimensional Art Instructor Ref erral for Allergic rhinitis Referring Physician: Alcides Hanks, Internal Medicine, Encounter Date: 03/25/2022 Urologist Referral for Erect ile dysfunction Referring Physician: Alcides Hanks, Internal Medicine, Encounter Date: 04/12/2022 Results Created Date Observation Date Name Description Value Unit Range Abnormal Flag Note LastModifiedBy Organization Detail LastModifiedTime 06/23/19 23 06/23/2022 US, abdom en, compl ete No observ ation record ed. [email or web address] [facility] (Medical Records) [address] [place] [address], [id number], 06/23/2022 22:40:19 Result Notes None recorded. Problems Name Problem SNOMED Code Status Onset Date Resolution Date Notes Provider Name and Address Organization Details Recorded Time Cobalami n deficien cy 281782252 Active 2021 Neelima pagan, [facility] 2 08:29:16 Vitamin D deficien cy 81003077 Active 2021 Neelima Vallejo null, [facility] 2 08:29:30 Intentio nal weight loss 044222811 Active 2021 bariatric surgery Neelima pagan, [facility] 2 08:31:16 Divertic ulosis of colon 563349939 Active 2021 Neelima Vallejo [facility] 2 08:30:04 Liver enzymes level above referenc e range 628118237 Active 2021 Neelimabowen Vallejo [facility] 2 08:30:16 Irritabl e bowel syndrome 68270290 Active 2021 Neelima Yoni [facility] 2 08:30:19 Anemia 739805602 Active 2021 Neelima Yoni [facility] 2 08:30:24 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 54716656 Active 2021 Neelima Yoni [facility] 2 08:30:32 Anxiety 55428289 Active 2021 Neelima Yoni [facility] 2 08:30:42 Depressi ve disorder 74309512 Active 2021 Neelima Yoni [facility] 2 08:30:47 Insomnia 535384648 Active 2021 Neelima Yoni [facility] 2 08:30:58 Epidermo id cyst 944207645 Active 2021 Neelima Vallejo [facility] 2 08:31:35 Melanony tanja 975194557 Active 2021 Neelima Yoni [facility] 2 08:31:53 Hidraden itis suppurat agustina 57501464 [facility] 08:32:06 Allergic rhinitis 99916250 Active 2021 Alcides Hanks, DO [address] [place] [address], [phone], [facility] 2 16:25:07 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 2021 Alcides Hanks, DO [address] [place] [address], [phone], [facility] 2 16:31:25 Fatigue 68983252 Active 2021 Alcides Hanks DO [address] [place] [address], [phone], [facility] 2 16:34:46 Pancreat ic enzyme level above referenc e range 986265714 Active 2021 Alcides Hanks DO [address] [place] [address], [phone], [facility] 2 16:57:45 Erectile dysfunct ion 757542865 Active 2021 Alcides Hanks [address], [phone], [facility] 2 17:04:17 Problem Notes None recorded. Procedures Surgical History None recorded. Imaging Results Imaging Date Name Status LastModified by Organiz ation Details LastModified Time 06/23/2022 US, abdomen, complete completed [email or web address] [facility] (Medical Records) [address] [place] [address], [id number], 06/23/2022 22:40:19 Procedure Notes None recorded. Medical Equipment None Reported. Allergies No known drug allergies Medications Name Sig Start Date Stop Date Status Note LastModified by Organization Details LastModified Time atorvastati n 40 mg tablet TAKE 1 TABLET BY MOUTH EVERY DAY active Not Available Not Available No t Available bupropion HCl SR 150 mg tablet,12 hr sustained-r elease TAKE 1 TABLET BY MOUTH TWICE A DAY. TO START TAKE 1 TABLET ONCE A DAY FOR FIRST WEEK, THEN INCREASE TO TWICE A DAY IF TOLERATED . active Not Available Not Available No t Available acetaminoph en 325 mg tablet TAKE 1 TABLET BY MOUTH FOUR TIMES A DAY FOR 7 DAYS NEEDED FOR PAIN 03/25 completed Not Available Not Available Not Available minocycline 100 mg capsule TAKE 1 CAPSULE BY MOUTH TWICE A DAY WITH FOOD active Not Available Not Available No t Available prednisone 20 mg tablet TAKE 3 TABLETS BY MOUTH EVERY DAY FOR 5 DAYS 03/25 completed Not Available Not Available Not Available cyanocobala min (vit B-12) 1,000 mcg tablet TAKE 1 TABLET BY MOUTH EVERY DAY active Not Available Not Available No t Available oxycodone-a cetaminophe n 5 mg-325 mg tablet TAKE 1 TABLET BY MOUTH TWICE A DAY FOR 5 DAYS NEEDED FOR PAIN 03/25 completed Not Available Not Available Not Available ascorbic acid (vitamin C) 250 mg tablet TAKE 1 TABLET BY MOUTH EVERY DAY active Not Available Not Available No t Available erythromyci n 5 mg/gram (0.5 %) eye ointment APPLY 1/2 INCH TO LEFT EYE 3 TIMES A DAY active Not Available Not Available No t Available Gentle Laxative (bisacodyl) 5 mg tablet,anusha yed release TAKE 2 TABLETS BY MOUTH ONCE FOR BOWEL PREP AT 12 PM DAY BEFORE YOUR BOWEL PREP 03/25 completed Not Available Not Available Not Available oxycodone 5 mg capsule TAKE 1 CAPSULE BY MOUTH THREE TIMES A DAY NEEDED FOR PAIN FOR 3 DAYS 03/25 completed Not Available Not Available Not Available gabapentin 300 mg capsule TAKE 1 CAPSULE BY MOUTH THREE TIMES A DAY active Not Available Not Available No t Available omeprazole 20 mg capsule,del ayed release TAKE 1 CAPSULE BY MOUTH EVERY DAY active Not Available Not Available No t Available zinc gluconate 50 mg tablet TAKE 1 TAB BY MOUTH THREE TIMES A WEEK active Not Available Not Available No t Available furosemide 20 mg tablet TAKE 2 TABS BY MOUTH DAILY EVERY MORNING active Not Available Not Available No t Available ergocalcife rol (vitamin D2) 1,250 mcg (50,000 unit) capsule TAKE 1 CAPSULE BY MOUTH ONE TIME PER WEEK active Not Available Not Available No t Available methylpredn isolone 4 mg tablets in a dose pack TAKE DIRECTED PER PACKAGE active Not Available Not Available No t Available loratadine 10 mg tablet TAKE 1 TABLET BY MOUTH EVERY DAY 11/04 /2022 completed Not Available Not Available Not Available spironolact one 50 mg tablet TAKE 3 TABS BY MOUTH DAILY active Not Available Not Available No t Available amoxicillin 875 mg-potassiu m clavulanate 125 mg tablet TAKE 1 TABLET BY MOUTH EVERY 12 HOURS FOR 7 DAYS 04/12 completed Not Available Not Available Not Available oxycodone 5 mg tablet TAKE 1 TABLET BY MOUTH EVERY 6 HOURS NEEDED FOR PAIN active Not Available Not Available No t Available bupropion HCl SR 200 mg tablet,12 hr sustained-r elease active Not Available Not Available Not Available escitalopra m 20 mg tablet TAKE 1 TABLET BY MOUTH EVERY DAY 05/20 completed Not Available Not Available Not Available sodium fluoride 1.1 %-potassium nitrate 5 % dental paste USE TWICE DAILY ON TEETH active Not Available Not Available No t Available ferrous gluconate 324 mg (38 mg iron) tablet TAKE 1 TABLET BY MOUTH DAILY (WITH BREAKFAST ) FOR 360 DAYS. active Not Available Not Available No t Available Botox 200 unit injection 03/25 completed Not Available Not Available Not Available Purelax 17 gram/dose oral powder MIX AND TAKE DIRECTED FOR BOWEL PREP 03/25 completed Not Available Not Available Not Available Xarelto 20 mg tablet TAKE 1 TABLET BY MOUTH EVERY DAY active Not Available Not Available No t Available Vitals Date Recorded Body height Body mass index (BMI) Body weight Heart rate Oxygen saturation Oxygen saturation in Arterial blood by Pulse oximetry Provider Name and Address Organization Details Last Updated DateTime 2 180.34 cm 27 kg/m2 56210.1 2 g 88 /min 99 % 99 % Neelima Vallejo [facility] 2 14:55:46 Date Recorded Systolic blood pressure Diastolic blood pressure Provider Name and Address Organization Details Last Updated DateTime 03/25/2022 128 mm[Hg] 72 mm[Hg] Alcides Hanks, DO [address] [facility], [place], [address], [facility] 03/25/2022 16:06:25 Date Recorded Body height Body mass index (BMI) Body weight Oxygen saturation Oxygen saturation in Arterial blood by Pulse oximetry Heart rate Systolic blood pressure Diastolic blood pressure Provider Name and Address Organization Details Last Updated DateTime 2 180.34 cm 26.7 kg/m2 64160.8 6 g 100 % 100 % 89 /min 148 mm[Hg] 82 mm[Hg] Dena Rosalesner [facility] 16:25:00 Social History Question Answer Notes LastModified by Organizat ion Details LastModified Time Tobacco Smoking Status Current Every Day [facility]/22/2022 08:33:16 What Is Your Level Of Alcohol Consumption? Moderate Information not available 03/22/2022 What Is Your Level Of Caffeine Consumption? Moderate Information not available 03/22/2022 Which Illicit Or Recreational Drugs Have You Used? Marijuana Information not available 03/22/2022 What Was The Date Of Your Most Recent Tobacco Screening? 03/25/2022 Information not available 03/22/2022 How Much Tobacco Do You Smoke? 0.5 PPD Information not available 03/22/2022 Do You Use Any Illicit Or Recreational Drugs? Yes Information not available 03/22/2022 Do You Or Have You Ever Used Any Other Forms Of Tobacco Or Nicotine? No Information not available 03/22/2022 Sex: Male Functional Status None recorded. Mental Status None recorded. Family History Nothing Reported. Medical History No medical history recorded. 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 Fatigue 30348243 R53.83 [id number] Alcides Hanks [facility] [address] [place] [address] 04/12/2022 15:31:02 04/12/2022 17:08:12 Liver enzymes level above reference range 641235427 R74.01 will be checking for liver abnormalit y with US Pancreatic enzyme level above reference range 483265254 R85.0 we will have him get an US to check pancreas Erectile dysfunction 860 914388 F52.21 Health Concerns Section Related Observation LastModified by Organization Detai ls LastModified Time None Recorded Concern Status LastModified by Organization Details LastModified Time None Recorded Advance Directives Directive None Recorded Payers Encounter Date Sequence Insurance Name Policy Number Policy Green Covered Member ID Green Member ID Guarantor Name 03/25/2022 1 [place] [employer] Plasse [id number] 04/12/2022 1 [employer] [place] [id number] [address]asse [id number] Notes Date Note Type Note Provider Name a nd Address Organization Details Recorded Time 2 text/html here for initialhaving issues with nasal congestion and having no luck with loratidine or flonasestill having issues and is not sure what he is allerg to wants a eval to find out Alcides Hanks, [address] [place], [address], [facility] 03/25/2022 16:36:12 2 text/html here for chk up long discussion regarding recent hospitalization discussed his recent bout of confusion and no specific dxdiscussed need fo r eval of his liver and also need to rechk his pancreas due to recent elevated lab work Alcides Hanks DO [address] [place], [address], [facility] 04/12/2022 17:07:33
--- OUTSIDE RECORDS SUMMARY | 2024-08-08 08:01 | XMS_ITS | Patient Health Record ---
Author Organization [facility] Address [address] [place] [address] Care Team Providers Care Sanitation Tank Washer Name Role Phone Alcides Hanks MD Primary Care Provider Juan Martínez Unavailable [phone] Allergies No Known Allergies Reason For Referral No Information Medications Medication SIG (Take, Route, Frequency, Duration) Notes Start Date End Date Status Escitalopram Oxalate 20 MG 1 tablet Oral ly Once a day for 30 day(s) Active Furosemide 20 MG 1 tablet Orally Once a day for 30 day(s) Active Folic Acid Active Iron Active Gabapentin 100 MG 1 capsule Orally Onc e a day for 30 day(s) Active Multivitamin Active Minocycline HCl Acti ve Spironolactone Activ e Prevacid Active Aspirin Active Vitamin D2 Active Custom Orthotics as directed A ctive Vitamin B12 1000 MCG 1 tablet Orally Onc e a day for 30 day(s) Active Loratadine Not-Takin g Xarelto 2.5 MG 1 tablet Orally Twic e a day for 30 day(s) Active Immunizations Vaccine Route Administration Date Status Comme nts COVID-19 Pfizer BioNTech Vaccine Unknown 05/22/2020 Administered 04/2020 Unsure dates Social History Tobacco Use: Social History Observation Description Date Details (start date - stop date) Current Smoker NA - NA Tobacco Use/Smoking Question Answer Notes Are you a: current smoker Alcohol Screen Question Answer Notes Did you have a drink contain ing alcohol in the past year? Yes How often did you have a dri nk containing alcohol in the past year? 2 to 4 times a month (2 points) Points 2 Interpretation Negative Tobacco use other than smoking: Question Answer Notes Are you an other tobacco user? No Plan Of Treatment Pending Test Test Name Order Date Basic Metabolic Panel (8) 04/13/2022 CBC 04/13/2022 X ray : Foot, left 3V 11/26/2021 X ray : Foot, right 3V 02/03/2022 X ray : Foot, right 3V 11/26/2021 EKG 04/13/2022 Insurance Providers Payer Name Payer Address Payer Phone Subscriber Number Group Number Insured Name Patient Relationship to Insured Coverage Start Date Coverage End Date Blue Benefits [address] [address] [place] [address] [id number] Duke Salgado Self - patient is the insured Medical (General) History Medical History History ICD Code ampuation, right great toe Anemia Back,Hip,and Knee pain Broken bones Chicken pox Depression Numbness Poor circulation Transfusions Vascular grafts Vascular phlebitis (clots) Warts Surgical History Surgery Date(Month/Year) gastric bypass 04/22/09 Hernia Repair 07/2009 TPO femoral 09/21/18 Stent, ARTERIAL 07/17/20 toe removal 07/31/20
--- NOTE | 2024-08-08 08:02 | A.OFFVIS_ITS ---
Vital Signs 08/08/24 08:10 Height 5 ft 11 in Weight 192 lb BMI 26.8 BP 90/52 L Blood Pressure Location Lt brachial Position Sitting Pulse 77 Pulse Oximetry (%) 98 Oxygen Delivery Method Room Air Intake Visit Reasons: Chronic Diarrhea Intake Note: Patient follow up for chronic diarrhea. QUENTIN was 05/05/2023 and patient was order lab/US no results. Patient denies any GI issues for today visit, and today he is here checking medication. 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 Accompanied by: Self / Same As Patient Allergies No Known Allergies [No Known Allergies*] Allergy (Verified 08/08/24 08:02) Medication List - Last Reconciled 08/08/24 by Ladonna Miller MD bupropion HCl XL 300 mg PO QAM cholecalciferol (vitamin D3) 250 mcg PO 2XW 90 days cyanocobalamin (vitamin B-12) 1,000 mcg PO DAILY ergocalciferol (vitamin D2) 1,250 mcg PO FR@1000 ferrous sulfate 325 mg PO BIDWMEAL folic acid 1 mg PO DAILY furosemide 20 mg PO QAM multivitamin (Daily-Tomas tablet) 1 tab PO DAILY rivaroxaban (Xarelto) 20 mg PO QPM spironolactone 50 mg PO DAILY 90 days zinc gluconate 50 mg PO 3XW 70 days HPI HPI Chronic Diarrhea: Details: GI Clinic visit for this 54 Y M for fu of cirrhosis related to ETOH abuse and chronic hepatitis-C Pt returns after a hiatus of 1 year - last clinic visit was on 05/05/23 TODAY'S VISIT: Patient follow up for chronic diarrhea. QUENTIN was 05/05/2023 and patient was order lab/US no results. Patient denies any GI issues for today visit, and today he is here checking medication. Doing better. Working at [employer]. Symptoms of diarrhea resolved after he stopped drinking. 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 Denies heartburn, dysphagia Gets bouts of diarrhea and not as bad as in the past. Noticing a lot of muscle cramps - ? due to dehydration and drinking [employer] drinks Suspects he has a left inguinal hernia Diagnosed with COVID 10 days ago and tested negative 2 days ago. Continues to have fatigue. Diarrhea is not as bad and he is not eating as much. Gets sick when he eats certain foods - wheat and bread. Patient was discharged from [facility] on 08/04 with similar complaints and CT showing liver cirrhosis with moderate ascites, and patient was admitted to the floor for concern for SBP/paracentesis. During admission patient had an episode of rectal bleeding which was from external hemorrhoids. Patient also had an U.S. guided paracentesis with evacuation of 3300 mL and was initiated on Spironolactone and Lasix upon discharge. Patient's discharge hemoglobin was in was 7.1 Complains of lower abdominal cramps - frequent BMs 4-6 BMs in 24 hrs. Has chronic diarrhea over the past few yrs. Stools were more formed when he was on oxycodone. Has tried taking imodium in the past and advised to resume prn. Hemorrhoids stopped bleeding after he stopped the oral anticoagulants Pt takes Xarelto 20 mg daily Has prolapsing and painful hemorrhoids. Difficult to urinate and has fecal incontinence at the same time. Trying to eat and is afraid that BMs will irritate the hemorrhoids. Complains of abdominal pain,dizziness, some times headaches, can not eat solid food because diarrhea and nauseas, also left leg pain. Continues to have abdominal pain. Feels tired and fatigued, no appetite. Has been trying to drink liquids. Unable to take solids since abdomen gets distended. Hurts more after he eats. Notes abdominal pressure. Has diarrhea with multiple blackish/brown mucousy BMs a day Takes iron once daily. Has lost 8 lbs over the past week. Denies GERD, vomit or constipation. Has chills - freezing all the time and denies fevers. Quit drinking 16 weeks ago IMAGING STUDIES:? 08/06/[address] SCAN SHOWED: No acute findings within the abdomen or pelvis to explain the patient's symptomatology. Morphologically cirrhotic liver with small moderate ascites and recanalized paraumbilical vein. ABD CT SCAN AT [facility] SHOWED: The liver is normal in size but demonstrates mildly decreased attenuation and a mildly nodular contour. The gallbladder is physiologically distended without definitive gallstones. The pancreas, spleen and adrenal glands are unremarkable. Symmetrically enhancing kidneys without hydronephrosis. Surgical changes of the GE junction and stomach consistent with gastric bypass. Normal caliber loops of small and large bowel. There is mucosal fatty infiltration involving the ascending colon and rectum, nonspecific. Small to moderate amount of abdominal and pelvic ascites. Nonaneurysmal abdominal aorta. Recannulized umbilical vein. The bladder is normal in appearance. The prostate gland is not enlarged. No gross inguinal lymphadenopathy. Mild degenerative changes of the spine. IMPRESSION: Cirrhotic appearance of the liver with mild to moderate ascites and a recanalized umbilical vein. ENDOSCOPIC STUDIES:? 02/19/21 EGD AND COLONOSCOPY SHOWED: ESOPHAGUS: Small hiatal hernia STOMACH:??Pt is status post linda en Y gastric Bypass.? Normal appearing Gastro- jejunal anastomosis at 45 cms. JEJUNUM: Normal - biopsies were obtained to check for celiac disease Colonoscopy Findings: One small hyperplastic polyp removed. Random biopsies were obtained from the colon to check for microscopic colitis. Moderate diverticulosis seen in the sigmoid colon Large hemorrhoids on retroflexed exam. Plan:? Patient has an appointment on 03/08/21 in the GI Clinic with Ladonna Miller M.D.. Repeat Colonoscopy interval based on path results - in 5 years if polyps are adenomatous and due to history colon polyps. [facility] Medical History Amputated great toe Hemorrhoids with complication Iron deficiency anemia Ascites due to alcoholic cirrhosis Hidradenitis suppurativa Seizures Cirrhosis of liver with ascites DVT (deep venous thrombosis) Surgical History (Updated 08/08/24 @ 08:46 by Ladonna Miller MD) H/O hernia repair H/O colonoscopy H/O gastric bypass Family History Father Pancreatic cancer Paternal Grandmother Cancer Social History Household Members: None Housing: Apartment Do you presently have visiting nurse or other home services: No Alcohol intake: current Alcohol intake frequency: former alcohol drinker Patient Tobacco Use Status: Current everyday Tobacco user Cigarettes Per Day: 10 Years Smoked: 32 Second Hand Smoke Exposure: No service: No Review of Systems Const Reports fatigue, Denies fever(s), Denies headache(s) and Reports weight loss (intentional wt loss of 41.3 lbs) Eyes Denies eye discharge and Denies irritation ENT Reports Normal hearing present, Denies dysphagia, Denies dizziness and Denies headache(s) Card Denies chest pain, Denies leg edema and Denies dyspnea on exertion Resp Denies cough, Denies dyspnea on exertion and Denies wheezing GI Denies abdominal pain, Denies change in bowel habits, Denies dysphagia, Reports early satiety and Denies heartburn Denies dysuria Musc Denies back pain, Reports arthralgias and Reports other (arthritis) Skin/Breast Denies pruritus, Denies rash and Denies jaundice Neuro Reports Normal hearing present, Denies Abnormal speech present, Denies dizziness, Denies headache(s) and Denies seizure-like activity Psych Reports anxiety, Reports depression and Denies panic attacks Endo Denies cold intolerance, Reports fatigue, Denies flushing and Denies heat intolerance Yg/Lymph Denies easy bleeding and Denies easy bruising Aller/Immun Denies wheezing Physical Exam Vital Signs: Last Vital Signs Pulse 77 08/08/24 08:10 BP 90/52 L 08/08/24 08:10 Pulse Ox 98 08/08/24 08:10 Oxygen Delivery Method Room Air 08/08/24 08:10 BMI result Body Mass Index 26.8 Const General: healthy appearing and no acute distress Nutritional Appearance: overweight Orientation/consciousness: patient oriented x3 Limitations: no limitations HEENT Head: Yes normal to inspection Ears: hearing grossly normal bilaterally Eyes Sclerae: sclerae normal Pupils: Equal, round and reactive pupils present Neck Neck: Yes normal visual inspection Chest Chest palpation & inspection: normal inspection of the chest Resp Effort & Inspection: normal respiratory effort Auscultation: clear to auscultation bilaterally Cardio Palpation: normal PMI Rate: regular rate Rhythm: regular rhythm Heart sounds: S1 normal heart sound present, S2 normal heart sound present and no murmurs GI Inspection: Yes scar (upper midline scar of Gastric Bypass surgery) Palpation (GI): Soft to palpation, nontender and No hepatosplenomegaly present Auscultation: normal bowel sounds Rectal Exam - Male: Yes deferred Skin General skin exam: no rashes or lesions noted Neuro General: patient oriented x3, gait normal and moves all extremities Cranial nerves: Yes Equal, round and reactive pupils present and Yes Normal hearing present Speech: No Abnormal speech present Psych Appearance: grossly normal Mental Status: mental status grossly normal Assessment & Plan Assessment & Plan (1) Ascites due to alcoholic cirrhosis: Code(s): K70.31 - Alcoholic cirrhosis of liver with ascites Category: Medical (2) Iron deficiency anemia: Code(s): D50.9 - Iron deficiency anemia, unspecified Category: Medical (3) Hemorrhoids with complication: Code(s): K64.8 - Other hemorrhoids Category: Medical (4) Chronic diarrhea: Code(s): K52.9 - Noninfective gastroenteritis and colitis, unspecified Category: Medical (5) Colon cancer screening: Code(s): Z12.11 - Encounter for screening for malignant neoplasm of colon Category: Medical (6) Cirrhosis of liver with ascites: Code(s): K74.60 - Unspecified cirrhosis of liver; R18.8 - Other ascites Category: Medical Qualifiers: Hepatic cirrhosis type: alcoholic cirrhosis Qualified Code(s): K70.31 - Alcoholic cirrhosis of liver with ascites Plan 54 YM with gastric bypass 2008,? 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 intake. Abd exam revealed resolution of ascites. Of note Hepatitis C ab was negative in 12/2017 - and repeat was negative in 07/2020. REDUCING THE RISK OF LIVER PROGRESSION:? patient was advised to completely avoid use of alcohol - pt states he quitted ETOH 2 years ago. HCC SURVEILLANCE:?? the patient is at risk of developing hepatocellular carcinoma given the presence of cirrhosis and needs 6 monthly imaging surveillance with either abdominal ultrasound (US) or multiphase cross-sectional imaging (CT or MRI). SURVEILLANCE FOR GASTROESOPHAGEAL VARICES:?02/19/21 No varices seen on EGD. QUESTION OF LIVER TRANSPLANTATION:?? As pt quitted ETOH 5 months ago, MELD Na score is 8 and Liver Tx is not indicated at this time. 05/05/23 Joined AA, lost some weight and got a new job and living as a recovering alcoholic No ETOH x 2 years 08/08/24 I will check labs and Abd US - (pt will draw his labs at his workplace and send to [facility] and fax the results) FU in 6 months -schedule 01/30/25 Orders: Orders Complete Blood Count no Diff Today K70.31 - Alcoholic cirrhosis of liver with ascites Liver Fibrosis Pnl Today K70.31 - Alcoholic cirrhosis of liver with ascites Comprehensive [place]. Panel Fast Today K70.31 - Alcoholic cirrhosis of liver with ascites Prothrombin Time INR Today K70.31 - Alcoholic cirrhosis of liver with ascites US abdomen mccoy w elastography Today K70.31 - Alcoholic cirrhosis of liver with ascites Medications: Refilled cholecalciferol (vitamin D3) 250 mcg PO 2XW 90 days 26 caps 1RF E55.9 - Vitamin D deficiency, unspecified Coding Level of Care Code Est Pt Level 4 (40208) Diagnoses Ascites due to alcoholic cirrhosis K70.31 Iron deficiency anemia D50.9 Hemorrhoids with complication K64.8 Chronic diarrhea K52.9 Colon cancer screening Z12.11 Cirrhosis of liver with ascites K70.31 Hepatic cirrhosis type: alcoholic cirrhosis Time Spent (min) 21
[2024-08-08 08:10] VITALS: BP 90/52; PULSE 77; O2SAT 98; BMI 26.8
== END 2024-08-08 08:45 | disposition home or self-care (01) ==
LOC: HO.HGI 07:57
PROVIDERS: PCP Internal Medicine; Visit Provider Internal Medicine Gastroenterology
DX: K52.9 Noninfective gastroenteritis and colitis, unspecified (principal); K70.31 Alcoholic cirrhosis of liver with ascites; D50.9 Iron deficiency anemia, unspecified; K64.8 Other hemorrhoids
CPT/HCPCS: 99214

== ENCOUNTER → 2024-08-08 07:57 | Outpatient (BNVA) | payer SELFPAY | PROVIDERS: PCP Internal Medicine; Visit Provider Internal Medicine Gastroenterology ==

== ENCOUNTER 2024-09-23 09:12 | Outpatient (REF) | payer BC, SELFPAY ==
--- NOTE | ~2024-09-23 | US_ITS ---
EXAMINATION: US ABDOMEN LIMITED WITH LIVER ELASTOGRAPHY HISTORY: K70.31 - Alcoholic cirrhosis of liver with ascites TECHNIQUE: Real-time grayscale ultrasound imaging of the right upper quadrant was performed and images were reviewed. COMPARISON: Comparison is made with the prior examination dated 06/23/2022. FINDINGS: Liver: The right lobe of the liver measures 15.0 cm in size. The left lobe of the liver measures 7.8 cm in size. The liver demonstrates increased echotexture, consistent with steatosis. No focal mass or intrahepatic biliary ductal dilatation is identified. There is normal hepatopedal flow in the portal vein. Ultrasound elastography of the liver was performed with 10 separate measurements of the liver parenchyma with the patient in the supine position. Measurements were obtained approximately 2 cm below Yannick's capsule and perpendicular to the capsule. Images are of satisfactory quality. The median shear wave velocity is 2.16 m/s. The interquartile range/median (IQR/median) is 0.07. Gallbladder and biliary tree: The gallbladder is unremarkable, without evidence of calculi, wall thickening, or pericholecystic fluid. There is no sonographic Tejeda sign. The common bile duct is normal in caliber measuring 3 mm. Right Kidney: The right kidney measures 11.6 cm in length. The right kidney is unremarkable, without evidence of masses, hydronephrosis, or calculi. Pancreas: The pancreatic head, neck, and body are unremarkable. The pancreatic tail is obscured by bowel gas. Abdominal aorta and inferior vena cava: The visualized portions of the abdominal aorta and inferior vena cava are normal in caliber. There is no free fluid in the right upper quadrant. US/US abdomen mccoy w elastography IMPRESSION: Hepatic steatosis. The median shear wave velocity in the liver is 2.16 m/s, corresponding to a median liver stiffness of 14.1 kPa. The IQR/median value is 0.07. This is indicative of a quality data set. Findings are indicative of a high elastography value indicating advanced chronic liver disease. REFERENCE: Society of Radiologists in Ultrasound Liver Stiffness Thresholds (2019): LIVER STIFFNESS THRESHOLDS: *Shear wave velocity less than 1.3 m/s (Liver Stiffness equal or less than 5 kPa): High probability of being normal. *Shear wave velocity less than 1.7 m/s (Liver Stiffness less than 9 kPa): In the absence of other known clinical signs, rules out compensated advanced chronic liver disease. *Shear wave velocity between 1.7-2.1 m/s (Liver Stiffness 9-13 kPa): Suggestive of compensated advanced chronic liver disease but need further test for confirmation. *Shear wave velocity between 2.1-2.4 m/s (Liver Stiffness 13-17 kPa): Rules in compensated advanced chronic liver disease. *Shear wave velocity greater than 2.4 m/s (Liver Stiffness over 17 kPa): Suggestive of clinically significant portal hypertension. QUALITY OF DATA SET: *IQR/Median value equal or less that 0.15 implies a quality data set. *IQR/Median value over 0.15 implies a poor quality data set. SIGNIFICANT CHANGE FROM PRIOR EXAM: Significant change if liver stiffness measurement is 10% or greater from prior exam. OTHER CONSIDERATIONS: The stage of liver fibrosis may be overestimated in the setting of acute hepatitis, liver inflammation, elevated liver function tests, hepatic vascular congestion, obstructive cholestasis, non-fasting state, and infiltrative diseases such as amyloidosis and lymphoma. In some patients with NAFLD, the liver stiffness thresholds for compensated advanced chronic liver disease may be lower. In causes other than viral hepatitis and NAFLD, liver stiffness thresholds are not well established. Electronically signed by: Manan Doe MD 09/23/2024 11:05 AM EDT
--- OUTSIDE RECORDS SUMMARY | 2024-09-23 09:54 | XMS_ITS | Data Portability ---
Author Organization [facility] Address [address] [place] [address] Assessment Encounter Date Assessment Date Assessment LastModified by Organization Details LastModified Time 03/25/2022 03/25/2022 [id number] [place] [id number] (LIGHTING DIRECTOR) [facility] MODERATE MUST MEET 2 OUT OF 3 [...] COVERED Not available 03/25/2022 16:24:54 04/12/2022 04/12/20[place] [id number] [place] [id number] (LIGHTING DIRECTOR) MDM MODERATE MUST MEET 2 OUT OF [...] testostero ne, free + total, serum 2021 [facility], [address] [place] [address], [id number], 3 11:28:33 CBC w/ auto diff 2021 [facility], [address] [place] [address], [address], 11:28:35 iron + TIBC + ferritin, serum 2021 [facility], [address] [place] [address], [id number], 12:05:45 vitamin B12 + folate, serum or blood 2021 [facility], [address] [place] [address], [address], 12:05:45 ferritin, serum or plasma 2021 [facility], [address] [place] [address], [address], 16:40:31 CMP, serum or plasma 2021 [facility], [address] [place] [address], [address], 12:05:45 testostero ne, total, serum 2021 [facility], [address] [place] [address], [address], 11:14:38 vitamin D, 25-hydroxy , total, serum 2021 [facility], [address] [place] [address], [place], [address], 16:40:30 Referral urologist referral 2021 [facility], [address] [place], [address], 12:45:22 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 [place], [address] [place], [address], 08:54:55 Procedures None recorded. Surgeries None recorded. Imaging US, abdomen, complete - attn liver and pancreas with elevated enzyme levels 2021 [facility], [address] [place] [address], [address], 11:39:44 Medication Orders None recorded. Patient TargetsNo targets recorded. Patient Instructions Encounter Date Encounter Id Patient Instructions Last Modified By Organization Details Last Modified Time 03/25/2022 [id number] anemia: care instructions Not available 03/25/2022 16:35:01 Reason for Referral Data Support Specialist & Political Science Research Assistant Ref erral for Allergic rhinitis Referring Physician: Alcides Hanks, Internal Medicine, Encounter Date: 03/25/2022 Urologist Referral for Erect ile dysfunction Referring Physician: Alcides Hanks, Internal Medicine, Encounter Date: 04/12/2022 Results Created Date Observation Date Name Description Value Unit Range Abnormal Flag Note LastModifiedBy Organization Detail LastModifiedTime 06/23/19 23 06/23/2022 US, abdom en, compl ete No observ ation record ed. [email or web address] [facility] (Medical Records) [address] [place] [address], [id number], 06/23/2022 22:40:19 Result Notes None recorded. Problems Name Problem SNOMED Code Status Onset Date Resolution Date Notes Provider Name and Address Organization Details Recorded Time Cobalami n deficien cy 932995084 Active 2021 Neelima pagan, [facility] 2 08:29:16 Vitamin D deficien cy 06148046 Active 2021 Neelima Vallejo null, [facility] 2 08:29:30 Intentio nal weight loss 971266306 Active 2021 bariatric surgery Neelima pagan, [facility] 2 08:31:16 Divertic ulosis of colon 644457600 Active 2021 Neelima Vallejo [facility] 2 08:30:04 Liver enzymes level above referenc e range 687544694 Active 2021 Neelimabowen Vallejo [facility] 2 08:30:16 Irritabl e bowel syndrome 02806309 Active 2021 Neelima Yoni [facility] 2 08:30:19 Anemia 767440223 Active 2021 Neelima Yoni [facility] 2 08:30:24 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 94506300 Active 2021 Neelima Yoni [facility] 2 08:30:32 Anxiety 47788374 Active 2021 Neelima Yoni [facility] 2 08:30:42 Depressi ve disorder 69814306 Active 2021 Neelima Yoni [facility] 2 08:30:47 Insomnia 719642868 Active 2021 Neelima Yoni [facility] 2 08:30:58 Epidermo id cyst 374886470 Active 2021 Neelima Vallejo [facility] 2 08:31:35 Melanony tanja 624893539 Active 2021 Neelima Yoni [facility] 2 08:31:53 Hidraden itis suppurat agustina 10349491 [facility] 08:32:06 Allergic rhinitis 23333482 Active 2021 Alcides Hanks, DO [address] [place] [address], [id number], [facility] 2 16:25:07 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 Active 2021 Alcides Hanks, DO [address] [place] [address], [phone], [facility] 2 16:31:25 Fatigue 98083396 Active 2021 Alcides Hanks DO [address] [place] [address], [phone], [facility] 2 16:34:46 Pancreat ic enzyme level above referenc e range 124332828 Active 2021 Alcides Hanks DO [address] [place] [address], [address], [facility] 2 16:57:45 Erectile dysfunct ion 941979188 Active 2021 Alcides Hanks [address], [address], [facility] 2 17:04:17 Problem Notes None recorded. Procedures Surgical History None recorded. Imaging Results Imaging Date Name Status LastModified by Organiz ation Details LastModified Time 06/23/2022 US, abdomen, complete completed [email or web address] [facility] (Medical Records) [address] [place] [address], [id number], 06/23/2022 22:40:19 Procedure Notes None recorded. Medical [...] Updated DateTime 2 180.34 cm 27 kg/m2 02837.1 2 g 88 /min 99 % 99 % Neelima Vallejo [facility] 2 14:55:46 Date Recorded Systolic blood pressure Diastolic blood pressure Provider Name and Address Organization Details Last Updated DateTime 03/25/2022 128 mm[Hg] 72 mm[Hg] Alcides Hanks, DO [address] [facility], [place], [address], [facility] 03/25/2022 16:06:25 Date Recorded Body height Body mass index (BMI) Body weight Oxygen saturation Oxygen saturation in Arterial blood by Pulse oximetry Heart rate Systolic blood pressure Diastolic blood pressure Provider Name and Address Organization Details Last Updated DateTime 2 180.34 cm 26.7 kg/m2 10940.8 6 g 100 % 100 % 89 /min 148 mm[Hg] 82 mm[Hg] Dena Rosalesner [facility] 16:25:00 Social History Question Answer Notes LastModified by Organizat ion Details LastModified Time Tobacco Smoking Status Current Every Day Smoker [facility] 03/22/2022 08:33:16 What Is Your Level Of [...] SNOMED-CT Code Diagnosis ICD10 Code Diagnosis Note [id number] Alcides Hanks [facility] [address] [place] [phone] 03/25/2022 14:44:49 03/25/2022 16:38:06 Allergic rhinitis 30713054 J30.9 ongoing issues and having no luck with the current med trialwill refer to allerg Anemia 165153653 D64.9 Hidradenit is suppurativa 51489096 L73.2 Fatigue 02024992 R53.83 [id number] Alcides Hanks [facility] [address] [place] [address] 04/12/2022 15:31:02 04/12/2022 17:08:12 Liver enzymes level above reference range 933672875 R74.01 will be checking for liver abnormalit y with US Pancreatic enzyme level above reference range 095200606 R85.0 we will have him get an US to check pancreas Erectile dysfunction 860 934805 F52.21 Health Concerns Section Related Observation LastModified by Organization Detai ls LastModified Time None Recorded Concern Status LastModified by Organization Details LastModified Time None Recorded Advance Directives Directive None Recorded Payers Encounter Date Sequence Insurance Name Policy Number Policy Green Covered Member ID Green Member ID Guarantor Name 03/25/2022 1 [place] [address] [id number] [address] 04/12/2022 1 [employer] [place] [id number] [id number] Notes Date Note Type Note Provider Name a nd Address Organization Details Recorded Time 2 text/html here for initialhaving issues with nasal congestion and having no luck with loratidine or flonasestill having issues and is not sure what he is allerg to wants a eval to find out Alcides Hanks, [address] [place], [address], [facility] 03/25/2022 16:36:12 2 text/html here for chk up long discussion regarding recent hospitalization discussed his recent bout of confusion and no specific dxdiscussed need fo r eval of his liver and also need to rechk his pancreas due to recent elevated lab work Alcides Hanks DO [address] [place], [address], [facility] 04/12/2022 17:07:33
--- OUTSIDE RECORDS SUMMARY | 2024-09-23 09:54 | XMS_ITS | Patient Health Record ---
Author Organization [facility] Address [address] [place] [address] Care Team Providers Care Assisted Living Coordinator Name Role Phone Alcides Hanks MD Primary Care Provider Juan Martínez Unavailable [phone] Allergies No Known Allergies Reason For Referral [...] 11/26/2021 X ray : Foot, right 3V 11/26/2021 X ray : Foot, right 3V 02/03/2022 EKG 04/13/2022 Insurance Providers Payer Name Payer Address Payer Phone Subscriber Number Group Number Insured Name Patient Relationship to Insured Coverage Start Date Coverage End Date Blue Benefits [address] [address] [place] [address] [id number] Duke Salgado Self - patient is the [...]
== END 2024-09-23 09:13 | disposition home or self-care (01) ==
LOC: HO.US 09:12
PROVIDERS: PCP Physician Assistant; Visit Provider Internal Medicine Gastroenterology
DX: K70.31 Alcoholic cirrhosis of liver with ascites (principal)
CPT/HCPCS: 76705; 76981

== ENCOUNTER → 2024-09-23 09:15 | Outpatient (BNV) | payer BC, SELFPAY | PROVIDERS: PCP Physician Assistant; Visit Provider Radiology Diagnostic Radiology | DX: K70.31 Alcoholic cirrhosis of liver with ascites (principal); K76.0 Fatty (change of) liver, not elsewhere classified | CPT/HCPCS: 76705; 76981 ==

== ENCOUNTER 2025-01-30 07:55 | Outpatient (AMB) | payer BC, SELFPAY ==
--- NOTE | 2025-01-30 08:00 | MHC.OFFVIS ---
Vital Signs 01/30/25 08:10 Height 5 ft 11 in Weight 177 lb BMI 24.7 BP 83/51 L Blood Pressure Location Lt brachial Position Sitting Pulse 67 Pulse Oximetry (%) 98 Oxygen Delivery Method Room Air Intake Visit Reasons: 6m chronic diarrhea Intake Note: Patient 6 month chronic diarrhea and Ascites due to alcoholic cirrhosis, and US results. Patient did not did lab order. Patient denies any GI issues. Esthetician/Skin Therapist Required: No Accompanied by: Self / Same As Patient Allergies No Known Allergies (No Known Allergies*) Allergy (Verified 01/30/25 08:00) Medication List - Last Reconciled 01/30/25 by Ladonna Miller MD ascorbic acid (vitamin C) 250 mg PO DAILY aspirin 81 mg PO DAILY atorvastatin 40 mg PO DAILY bupropion HCl XL 300 mg PO QAM cholecalciferol (vitamin D3) 250 mcg PO 2XW 90 days cyanocobalamin (vitamin B-12) 1,000 mcg PO DAILY ferrous sulfate 325 mg PO BIDWMEAL folic acid 1 mg PO DAILY furosemide 20 mg PO QAM multivitamin (Daily-Tomas tablet) 1 tab PO DAILY omeprazole 20 mg PO DAILY rivaroxaban (Xarelto) 20 mg PO QPM semaglutide mg subcut spironolactone 50 mg PO DAILY 90 days zinc gluconate 50 mg PO 3XW 70 days HPI HPI 6m chronic diarrhea: Details: GI Clinic visit for this 54 YM for fu of cirrhosis related to ETOH abuse and chronic hepatitis-C TODAY'S VISIT: Patient 6 month chronic diarrhea and Ascites due to alcoholic cirrhosis, and US results. Notes an increase in BMs when he eats the wrong things - on a keto based diet. When he takes breads and sugars he notes gurgling in the stomach and diarrhea. Concerned about dementia with group home Omeprazole use (Mom has a hx of dementia and notes he is having trouble with his memory) Advised to taper off Omeprazole. If he notes recurrent heartburn he can use Pepcid p.r.n. No ETOH x 2 years and 2 months. He draws his blood himself at [facility] PAST VISIT: Patient follow up for chronic diarrhea. QUENTIN was 05/05/2023 and patient was order lab/US no results. Pt returns after a hiatus of 1 year - last clinic visit was on 05/05/23 Patient denies any GI issues for today visit, and today he is here checking medication. Doing better. Working at [employer]. Symptoms of diarrhea resolved after he stopped drinking. 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 Denies heartburn, dysphagia Gets bouts of diarrhea and not as bad as in the past. Noticing a lot of muscle cramps - ? due to dehydration and drinking [employer] drinks Suspects he has a left inguinal hernia Diagnosed with COVID 10 days ago and tested negative 2 days ago. Continues to have fatigue. Diarrhea is not as bad and he is not eating as much. Gets sick when he eats certain foods - wheat and bread. Patient was discharged from [facility] [place] on 08/[address] with similar complaints and CT showing liver cirrhosis with moderate ascites, and patient was admitted to the floor for concern for SBP/paracentesis. During admission patient had an episode of rectal bleeding which was from external hemorrhoids. Patient also had an U.S. guided paracentesis with evacuation of 3300 mL and was initiated on Spironolactone and Lasix upon discharge. Patient's discharge hemoglobin was in was 7.1 Complains of lower abdominal cramps - frequent BMs 4-6 BMs in 24 hrs. Has chronic diarrhea over the past few yrs. Stools were more formed when he was on oxycodone. Has tried taking imodium in the past and advised to resume prn. Hemorrhoids stopped bleeding after he stopped the oral anticoagulants Pt takes Xarelto 20 mg daily Has prolapsing and painful hemorrhoids. Difficult to urinate and has fecal incontinence at the same time. Trying to eat and is afraid that BMs will irritate the hemorrhoids. Complains of abdominal pain,dizziness, some times headaches, can not eat solid food because diarrhea and nauseas, also left leg pain. Continues to have abdominal pain. Feels tired and fatigued, no appetite. Has been trying to drink liquids. Unable to take solids since abdomen gets distended. Hurts more after he eats. Notes abdominal pressure. Has diarrhea with multiple blackish/brown mucousy BMs a day Takes iron once daily. Has lost 8 lbs over the past week. Denies GERD, vomit or constipation. Has chills - freezing all the time and denies fevers. Quit drinking 16 weeks ago IMAGING STUDIES:? 09/2024 ABD US WITH ELASTOGRAPHY SHOWED: Hepatic steatosis. The median shear wave velocity in the liver is 2.16 m/s, corresponding to a median liver stiffness of 14.1 kPa. The IQR/median value is 0.07. This is indicative of a quality data set. Findings are indicative of a high elastography value indicating advanced chronic liver disease. 08/06/[address] SCAN SHOWED: No acute findings within the abdomen or pelvis to explain the patient's symptomatology. Morphologically cirrhotic liver with small moderate ascites and recanalized paraumbilical vein. ABD CT SCAN AT [facility] [place] SHOWED: The liver is normal in size but demonstrates mildly decreased attenuation and a mildly nodular contour. The gallbladder is physiologically distended without definitive gallstones. The pancreas, spleen and adrenal glands are unremarkable. Symmetrically enhancing kidneys without hydronephrosis. Surgical changes of the GE junction and stomach consistent with gastric bypass. Normal caliber loops of small and large bowel. There is mucosal fatty infiltration involving the ascending colon and rectum, nonspecific. Small to moderate amount of abdominal and pelvic ascites. Nonaneurysmal abdominal aorta. Recannulized umbilical vein. The bladder is normal in appearance. The prostate gland is not enlarged. No gross inguinal lymphadenopathy. Mild degenerative changes of the spine. IMPRESSION: Cirrhotic appearance of the liver with mild to moderate ascites and a recanalized umbilical vein. ENDOSCOPIC STUDIES:? 02/19/21 EGD AND COLONOSCOPY SHOWED: ESOPHAGUS: Small hiatal hernia STOMACH:??Pt is status post linda en Y gastric Bypass.? Normal appearing Gastro-jejunal anastomosis at 45 cms. JEJUNUM: Normal - biopsies were obtained to check for celiac disease Colonoscopy Findings: One small hyperplastic polyp removed. Random biopsies were obtained from the colon to check for microscopic colitis. Moderate diverticulosis seen in the sigmoid colon Large hemorrhoids on retroflexed exam. Plan:? Patient has an appointment on 03/08/21 in the GI Clinic with Ladonna Miller M.D.. Repeat Colonoscopy interval based on path results - in 5 years if polyps are adenomatous and due to history colon polyps [facility] Medical History (Reviewed 05/05/23 @ 08:11 by Sugar Valle[facility]) Amputated great toe Hemorrhoids with complication Iron deficiency anemia Ascites due to alcoholic cirrhosis Hidradenitis suppurativa Seizures Cirrhosis of liver with ascites DVT (deep venous thrombosis) Surgical History H/O hernia repair H/O colonoscopy H/O gastric bypass Family History Father Pancreatic cancer Paternal Grandmother Cancer Social History Household Members: None Housing: Apartment Do you presently have visiting nurse or other home services: No Alcohol intake: current Alcohol intake frequency: former alcohol drinker Patient Tobacco Use Status: Current everyday Tobacco user Cigarettes Per Day: 10 Years Smoked: 32 Second Hand Smoke Exposure: No service: No Review of Systems Const Denies fever(s), Denies headache(s) and Reports weight loss (intentional wt loss of 41.3 lbs) Eyes Denies eye discharge and Denies irritation ENT Reports Normal hearing present, Denies dysphagia, Denies dizziness and Denies headache(s) Card Denies chest pain, Denies leg edema and Denies dyspnea on exertion Resp Denies cough, Denies dyspnea on exertion and Denies wheezing GI Denies abdominal pain, Denies change in bowel habits, Denies dysphagia, Reports early satiety and Denies heartburn Denies dysuria Musc Denies back pain, Reports arthralgias and Reports other (arthritis) Skin/Breast Denies pruritus, Denies rash and Denies jaundice Neuro Reports Normal hearing present, Denies Abnormal speech present, Denies dizziness, Denies headache(s) and Denies seizure-like activity Psych Reports anxiety, Reports depression and Denies panic attacks Endo Denies cold intolerance, Denies flushing and Denies heat intolerance Yg/Lymph Denies easy bleeding and Denies easy bruising Aller/Immun Denies wheezing Physical Exam Const General: healthy appearing and no acute distress Nutritional Appearance: average body habitus Orientation/consciousness: patient oriented x3 Limitations: no limitations HEENT Head: Yes normal to inspection Ears: hearing grossly normal bilaterally Eyes Sclerae: sclerae normal Pupils: Equal, round and reactive pupils present Neck Neck: Yes normal visual inspection Chest Chest palpation & inspection: normal inspection of the chest Resp Effort & Inspection: normal respiratory effort Auscultation: clear to auscultation bilaterally Cardio Palpation: normal PMI Rate: regular rate Rhythm: regular rhythm Heart sounds: S1 normal heart sound present, S2 normal heart sound present and no murmurs GI Inspection: Yes scar (upper midline scar of Gastric Bypass surgery) Palpation (GI): Soft to palpation, nontender and No hepatosplenomegaly present Auscultation: normal bowel sounds Rectal Exam - Male: Yes deferred Skin General skin exam: no rashes or lesions noted Neuro General: patient oriented x3, gait normal and moves all extremities Cranial nerves: Yes Equal, round and reactive pupils present and Yes Normal hearing present Speech: No Abnormal speech present Psych Appearance: grossly normal Mental Status: mental status grossly normal Assessment & Plan Assessment & Plan (1) Cirrhosis of liver with ascites: Code(s): K74.60 - Unspecified cirrhosis of liver; R18.8 - Other ascites Category: Medical Qualifiers: Hepatic cirrhosis type: alcoholic cirrhosis Qualified Code(s): K70.31 - Alcoholic cirrhosis of liver with ascites (2) Elevated lipase: Code(s): R74.8 - Abnormal levels of other serum enzymes Category: Medical (3) Hemorrhoids with complication: Code(s): K64.8 - Other hemorrhoids Category: Medical (4) Chronic diarrhea: Code(s): K52.9 - Noninfective gastroenteritis and colitis, unspecified Category: Medical (5) Colon cancer screening: Code(s): Z12.11 - Encounter for screening for malignant neoplasm of colon Category: Medical Plan 54 YM with gastric bypass 2008,? 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 intake. Abd exam revealed resolution of ascites. Of note Hepatitis C ab was negative in 12/2017 - and repeat was negative in 07/2020. REDUCING THE RISK OF LIVER PROGRESSION:? patient was advised to completely avoid use of alcohol - pt states he quitted ETOH 2 years ago. HCC SURVEILLANCE:?? the patient is at risk of developing hepatocellular carcinoma given the presence of cirrhosis and needs 6 monthly imaging surveillance with either abdominal ultrasound (US) or multiphase cross-sectional imaging (CT or MRI). SURVEILLANCE FOR GASTROESOPHAGEAL VARICES:?02/19/21 No varices seen on EGD. QUESTION OF LIVER TRANSPLANTATION:?? As pt quitted ETOH 5 months ago, MELD Na score is 8 and Liver Tx is not indicated at this time. 05/05/23 Joined AA, lost some weight and got a new job and living as a recovering alcoholic No ETOH x 2 years 08/08/24 I will check labs and Abd US - (pt will draw his labs at his workplace and send to [facility] and fax the results) 01/30/25 Pt advised to: 1. Take Omeprazole 20 mg every other day for a week and taper off over a month 2. Decrease Furosemide and Spironolactone to every other day 3. Decrease Vitamin B12 to every other day due to elevated Vitamin B12 levels > 1800 3. Check labs and Abd US - (pt will draw his labs at his workplace and send to [facility] and fax the results) FU in 6 months Orders: Orders Ferritin Today K70.31 - Alcoholic cirrhosis of liver with ascites US abdomen limited Today K70.31 - Alcoholic cirrhosis of liver with ascites Pancreatic Elastase-1 Today K52.9 - Noninfective gastroenteritis and colitis, unspecified Coding Level of Care Code Est Pt Level 4 (43923) Diagnoses Cirrhosis of liver with ascites K70.31 Hepatic cirrhosis type: alcoholic cirrhosis Elevated lipase R74.8 Hemorrhoids with complication K64.8 Chronic diarrhea K52.9 Colon cancer screening Z12.11 Time Spent (min) 20
--- OUTSIDE RECORDS SUMMARY | 2025-01-30 08:01 | XMS_ITS | Patient Health Record ---
[facility] Address [address] [place] [address] Care Team Providers Care Reporter Anchor Name Role Phone Alcides Hanks MD Primary Care Provider Juan Martínez Unavailable [phone] Allergies No Known Allergies Reason For Referral No Information Medications Medication SIG (Take, Route, Frequency, Duration) Notes Start Date End Date Status Escitalopram Oxalate 20 MG 1 tablet Oral ly Once a day; Duration: 30 day(s) Active Furosemide 20 MG 1 tablet Orally Once a day; Duration: 30 day(s) Active Folic Acid Active Iron Active Gabapentin 100 MG 1 capsule Orally Onc e a day; Duration: 30 day(s) Active Multivitamin Active Minocycline HCl Acti ve Spironolactone Activ e Prevacid Active Aspirin Active Vitamin D2 Active Custom Orthotics as directed A ctive Vitamin B12 1000 MCG 1 tablet Orally Onc e a day; Duration: 30 day(s) Active Loratadine Not-Takin g Xarelto 2.5 MG 1 tablet Orally Twic e a day; Duration: 30 day(s) Active Immunizations Vaccine Route Administration [...] Coverage End Date [employer] Benefits [address] [address] [place] [address] [id number] Duke Salgado Self - patient is the [...]
[2025-01-30 08:10] VITALS: BP 83/51; PULSE 67; O2SAT 98; BMI 24.7
== END 2025-01-30 08:36 | disposition home or self-care (01) ==
LOC: HO.HGI 07:55
PROVIDERS: PCP Internal Medicine; Visit Provider Internal Medicine Gastroenterology
DX: K70.31 Alcoholic cirrhosis of liver with ascites (principal); R74.8 Abnormal levels of other serum enzymes; K64.8 Other hemorrhoids; K52.9 Noninfective gastroenteritis and colitis, unspecified
CPT/HCPCS: 99214

== ENCOUNTER 2025-04-16 09:32 | Outpatient (REF) | payer BC, SELFPAY ==
--- NOTE | ~2025-04-16 | US_ITS ---
CLINICAL HISTORY: K70.31 - Alcoholic cirrhosis of liver with ascites --- Additional Notes or Special Instructions: Please schedule in Mar, 2025, thanks US abdomen limited Comparison: 09/23/2024 Findings: Pancreas not seen due to bowel gas Liver measures 18.1 cm in length. Hepatic surface nodularity and mild coarse echogenicity compatible with known cirrhosis. No hepatic mass lesion seen There is no intrahepatic bile duct dilatation. The common duct is 5 mm in diameter. The gallbladder is normal. There is no sonographic Tejeda sign. The main portal vein is antegrade. The right kidney is 12.8 cm in length. Unremarkable right kidney without hydronephrosis. No ascites. IMPRESSION: Hepatic cirrhosis. No hepatic mass lesion. This document has been electronically signed by: Kaitlin Heck MD on 04/16/2025 11:33:47
--- OUTSIDE RECORDS SUMMARY | 2025-04-16 10:47 | XMS_ITS | Patient Health Record ---
[facility] Address [address] [place] [address] Care Team Providers Care Finisher Screwdown Name Role Phone Alcides Hanks MD Primary Care Provider Juan Simon Unavailable [phone] Allergies No Known Allergies Reason For Referral [...] Coverage End Date [employer] Benefits [address] [address] [place] [address] [id number] Duke Salgado Self - patient is the [...]
--- OUTSIDE RECORDS SUMMARY | 2025-04-16 10:47 | XMS_ITS | Data Portability ---
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) MDM MODERATE MUST MEET 2 OUT OF [...] testostero ne, free + total, serum 2021 [facility], [address] [place] [address], [address], 11:28:33 CBC w/ auto diff 2021 [facility], [address] [place] [address], [address], 11:28:35 iron + TIBC + ferritin, serum 2021 [facility], [address] [place] [address], [address], 12:05:45 vitamin B12 + folate, serum or blood 2021 [facility], [address] [place] [address], [address], 12:05:45 ferritin, serum or plasma 2021 [facility], [address] [place] [address], [address], 16:40:31 CMP, serum or plasma 2021 [facility], [address] [place] [address], [address], 12:05:45 testostero ne, total, serum 2021 [facility], [address] [place] [address], [address], 11:14:38 vitamin D, 25-hydroxy , total, serum 2021 [facility], [address] [facility], [place], [address], 16:40:30 Referral urologist referral 2021 [facility] Jara, [address] [place], [address], 12:45:[address] referral 2021 [facility] Luizjatinder Owens, [address] [place], [address], 08:54:55 Procedures None recorded. Surgeries None recorded. Imaging US, abdomen, complete - attn liver and pancreas with elevated enzyme levels 2021 [facility], [address] [place] [address], [address], 11:39:44 Medication Orders None recorded. Patient TargetsNo targets recorded. 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 [email or web address] [facility] (Medical Records) [address] [place] [address], [address], 06/23/2022 22:40:19 Result Notes None recorded. 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 2021 [facility] Vitamin D deficien cy 84032808 Active [facility] 08:[facility]:30 Intentio nal weight loss 198513790 Active 2021 [facility] 08:31:16 Divertic ulosis of colon 908771029 Active 2021 [facility] 08:30:04 Liver enzymes level above referenc e range 360373420 Active 2021 [facility] 08:30:16 Irritabl e bowel syndrome 25383784 [facility] 08:30:19 Anemia 593353597 Active 2021 Neelima Vallejo [facility] 2 08:30:24 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 41831588 Active 2021 Neelima Vallejo [facility] 2 08:30:32 Anxiety 37130570 Active 2021 Neelima Vallejo [facility] 2 08:30:42 Depressi ve disorder 47793094 Active 2021 Neelima Vallejo [facility] 2 08:30:47 Insomnia 908116862 Active 2021 [facility] 08:30:58 Epidermo id cyst 537011459 Active 2021 Neelima Vallejo [facility] 2 08:31:35 Melanony tanja 092798596 Active 2021 Neelima Vallejo [facility] 2 08:31:53 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 Alcides Hanks DO [address] [place] [address], [phone], [facility] 2 16:31:25 Fatigue 08839194 Active 2021 Alcides Hanks DO [address] [place] [address], [phone], [facility] 2 16:34:46 Pancreat ic enzyme level above referenc e range 787159746 Active 2021 Alcides Hanks DO [address] [place] [address], [phone], [facility] 2 16:57:45 Erectile dysfunct ion 252193776 Active 2021 Alcides Hanks DO [address] [place] [address], [phone], [facility] 2 17:04:17 Problem Notes None recorded. Medical Equipment None Reported. [...] TAKE 1 TABLET BY MOUTH EVERY DAY 03/25 completed Not Available Not Available Not [...] Available No t Available Vitals Date Recorded Systolic And Diastolic Provider Name and Address Organization Details Last Updated DateTime 03/25/2022 128/72 mm[Hg] Clare Grullon O [address] [place] [address], [phone] 03/25/2022 16:06:25 Date Recorded Body height Body mass index (BMI) Body weight Heart rate Oxygen saturation Provider Name and Address Organization Details Last Updated DateTime 03/25/2022 180.34 cm 27 kg/m2 16517.12 g 88 /min 99 % Neelima Vallejo [facility] 2 14:55:46 Date Recorded Body height Body mass index (BMI) Body weight Oxygen saturation Heart rate Systolic And Diastolic Provider Name and Address Organization Details Last Updated DateTime 180.34 cm 26.7 kg/m2 90711.8 6 g 100 % 89 /min 148/82 mm[Hg] Dena Padron [facility] 2 16:25:00 Social History Question Answer Notes LastModified by Organizat ion Details LastModified Time Tobacco Smoking Status Current Every Day Smoker Neelima Vallejo [facility] 03/22/2022 08:33:16 What Is Your Level Of Caffeine Consumption? Moderate Information not available 03/22/2022 Which Illicit Or Recreational Drugs Have You Used? Marijuana Information not available 03/22/2022 What Was The Date Of Your Most Recent Tobacco Screening? 03/25/2022 Information not available 03/22/2022 How Much Tobacco Do You Smoke? 0.5 PPD Information not available 03/22/2022 Sex: Male Functional Status Question Answer Note LastModified by Organizat ion Details LastModified Time Do you use any illicit or recreational drugs? Yes Information not available 03/22/2022 Do you or have you ever used any other forms of tobacco or nicotine? No Information not available 03/22/2022 What is your level of alcohol consumption? Moderate Information not available 03/22/2022 Mental Status None recorded. Family History Nothing Reported. Medical History No medical history recorded. 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 34528037 L73.2 Fatigue 08902752 R53.83 [id number] Alcides Hanks [facility] [address] [facility], [place] [address] 04/12/2022 15:31:02 04/12/2022 17:08:12 Liver enzymes level above reference range 025122813 R74.01 will be checking for liver abnormalit y with US Pancreatic enzyme level above reference range 768281764 R85.0 we will have him get an US to check pancreas Erectile dysfunction 860 690107 F52.21 Health Concerns Section Related Observation LastModified by Organization Detai ls LastModified Time None Recorded Concern Status LastModified by Organization Details LastModified Time None Recorded Advance Directives Directive None Recorded Payers Insurance Date Sequence Insurance Name Policy Number Policy Green Covered Member ID Green Member ID Guarantor Name 04/11/2022 1 [employer] JOEL (EPO) [id number] [id number] 04/11/2022 1 JOEL (PPO) [address] [id number] Notes Date Note Type Note Provider Name a nd Address Organization Details Recorded Time 2 text/html ROS as noted in the HPI here for initialhaving issues with nasal congestion and having no luck with loratidine or flonasestill having issues and is not sure what he is allerg to wants a eval to find out Alcides Hanks, [address] [place], [address], [facility] 03/25/2022 16:36:12 2 text/html ROS as noted in the HPI here for chk up long discussion regarding recent hospitalization discussed his recent bout of confusion and no specific dxdiscussed need fo r eval of his liver and also need to rechk his pancreas due to recent elevated lab work Alcides Hanks DO [address] [place], [address], [facility] 04/12/2022 17:07:33
== END 2025-04-16 09:33 | disposition home or self-care (01) ==
LOC: HO.US 09:32
PROVIDERS: PCP Physician Assistant; Visit Provider Internal Medicine Gastroenterology
DX: K70.31 Alcoholic cirrhosis of liver with ascites (principal)
CPT/HCPCS: 76705

== ENCOUNTER → 2025-04-16 09:36 | Outpatient (BNV) | payer BC, SELFPAY | PROVIDERS: PCP Physician Assistant; Visit Provider Radiology Diagnostic Radiology | DX: K70.31 Alcoholic cirrhosis of liver with ascites (principal) | CPT/HCPCS: 76705 ==